=== PATIENT | female | born 1950 | race American Indian/Alaskan Native ===

== ENCOUNTER 2017-04-30 20:27 | Emergency (ER) | payer MEDICARE ==
[2017-04-30] MEDS ORDERED: ASPIRIN PO ONE (20:58)
[2017-04-30 21:16] LABS: Basophils % (Auto) 0.1 % (0.0-1.8); Hematocrit 32.7 % (30.3-42.9); Hemoglobin 10.6 gm/dl (10.1-14.3); Lymphocytes # (Auto) 1.3 K/mm3 (1.2-5.4); Lymphocytes % (Auto) 10.6 % (13.4-35.0); Mean Corpuscular HGB Conc 32 % (30-34); Mean Corpuscular Volume 77 fl (79-97); Monocytes # (Auto) 0.3 K/mm3 (0.0-0.8); Monocytes % (Auto) 2.8 % (0.0-7.3); Platelet Count 391 K/mm3 (140-440); Red Blood Count 4.24 M/mm3 (3.65-5.03); Red Cell Distribution Width 15.7 % (13.2-15.2)
[2017-04-30 21:20] LABS: Mean Corpuscular Hemoglobin 25 pg (28-32)
[2017-04-30 21:38] LABS: BUN/Creatinine Ratio 17; Blood Urea Nitrogen 12 mg/dL (7-17); Calcium 9.5 mg/dL (8.4-10.2); Hemolysis Index 36
[2017-04-30] MEDS ORDERED: ZOFRAN IV ONE (21:57)
[2017-04-30] MEDS ORDERED: MORPHINE IV ONE (21:57)
[2017-04-30] MEDS ORDERED: NACL 0.9% 1000 ML 1,000 ML IV ONE (21:57)
--- NOTE | 2017-04-30 22:01 | Emergency Department Report ---
ED Abdominal Pain HPI - General Chief Complaint: Chest Pain Stated Complaint: CHEST,ABDOMINAL PAIN,VOMITINGSOB Time Seen by Provider: 04/30/17 21:40 Source: patient Mode of arrival: Ambulatory Limitations: No Limitations - History of Present Illness Initial Comments: Patient is 58 years old female with history of hypertension. Patient presented to the ER with lower abdominal pain noted to the left lower quadrant and suprapubic area started last night associated with chills and nausea but no vomiting. Patient stated that she did not have any bowel movement for the last 2-3 days. She also describes increased frequency in urination. Patient denied any fever. MD Complaint: abdominal pain Location: LLQ, suprapubic Migration to: no migration Severity scale (0 -10): 7 Consistency: constant Associated Symptoms: nausea, chills - Related Data Allergies Allergy/AdvReac Type Severity Reaction Status Date / Time lisinopril Allergy Swelling Verified 04/30/17 20:50 ED Review of Systems ROS: Stated complaint: CHEST,ABDOMINAL PAIN,VOMITINGSOB Other details as noted in HPI Comment: All other systems reviewed and negative Constitutional: chills. denies: fever Respiratory: denies: cough, orthopnea, shortness of breath, SOB with exertion Cardiovascular: chest pain Gastrointestinal: abdominal pain, nausea. denies: vomiting, diarrhea, constipation Genitourinary: frequency. denies: urgency Neurological: denies: headache, weakness, numbness ED Past Medical Hx - Past Medical History Previous Medical History?: Yes Hx Hypertension: Yes ED Physical Exam - General Limitations: No Limitations General appearance: alert, in no apparent distress - Head Head exam: Present: atraumatic, normocephalic, normal inspection - Eye Eye exam: Present: normal appearance - ENT ENT exam: Present: normal exam, normal orophraynx, mucous membranes moist - Neck Neck exam: Present: normal inspection, full ROM. Absent: tenderness, meningismus, lymphadenopathy - Respiratory Respiratory exam: Present: normal lung sounds bilaterally. Absent: respiratory distress, wheezes, rales, rhonchi, chest wall tenderness, accessory muscle use, decreased breath sounds, prolonged expiratory - Cardiovascular Cardiovascular Exam: Present: regular rate, normal rhythm, normal heart sounds - GI/Abdominal GI/Abdominal exam: Present: soft, tenderness, normal bowel sounds. Absent: distended, guarding, rebound, rigid, organomegaly, mass, bruit, pulsatile mass, hernia - Extremities Exam Extremities exam: Present: normal inspection, full ROM, normal capillary refill - Back Exam Back exam: Present: normal inspection, full ROM. Absent: tenderness, CVA tenderness (R), CVA tenderness (L) - Neurological Exam Neurological exam: Present: alert, oriented X3, CN II-XII intact, normal gait - Skin Skin exam: Present: warm, intact, normal color. Absent: cyanosis, diaphoretic, erythema ED Course Vital Signs 04/30/17 04/30/17 04/30/17 20:50 22:42 22:59 Temperature 97.8 F 98.2 F Pulse Rate 112 H 83 Respiratory 18 18 20 Rate Blood Pressure 183/90 Blood Pressure 166/86 [Left] O2 Sat by Pulse 98 95 Oximetry 04/30/17 23:00 Temperature Pulse Rate Respiratory 20 Rate Blood Pressure Blood Pressure [Left] O2 Sat by Pulse 95 Oximetry - Reevaluation(s) Reevaluation #1: 04/30/17 23:59 Patient stated that she is feeling much better. Her abdominal pain is completely resolved. No more nausea or vomiting. I informed the patient about her CT abdomen and pelvis results and the need to follow-up with her primary care physician for further management. Patient understood and she stated that she is following with her automatic steel tie adjuster this morning and she will follow-up as a primary care physician in the next 2-3 days. ED Medical Decision Making - Lab Data Result diagrams: 04/30/17 21:06 04/30/17 21:06 - Radiology Data Radiology results: report reviewed Referring Physician: KELSEY MERA Patient Name: ALEJANDRA DAVIS Date of : 1950 Sex: Female Report Date: 2017-04-30 Report Status: Finalized Findings [facility] [address] [place] [address] Cat Scan Report Signed Patient: ALEJANDRA DAVIS MR#: [id number] : 1950 Acct:[id number] Age/Sex: 66 / F ADM Date: 04/30/17 Loc: ED Attending Dr: Ordering Physician: KELSEY MERA Date of Service: 04/30/17 Procedure(s): CT abdomen pelvis w con Accession Number(s): [id number] cc: KELSEY CliffDevorah MERA FINAL REPORT EXAM: CT ABDOMEN PELVIS W CON HISTORY: abdominal pain TECHNIQUE: CT abdomen and pelvis with intravenous contrast PRIORS: None. FINDINGS: No acute abnormality identified in the lung bases. No focal abnormality identified within the liver parenchyma. The spleen demonstrates normal size and attenuation. No pancreatic abnormalities seen. The kidneys demonstrate symmetric contrast enhancement. There is mild right hydronephrosis with dilatation of the proximal ureter obstructing calculus not identified. Multiple bilateral renal cysts are noted. There is stranding confluent increased density adjacent to the aorta which appears masslike. There are some prominent periaortic lymph nodes measuring up to 1.0 centimeter. The area of increased density extends from the infrarenal abdominal aorta through the bifurcation and into the left retroperitoneum at the junction of the internal and external iliac arteries. The aorta is normal in caliber. The adrenal glands are unremarkable Abdominal aorta is normal in caliber. No pathologically enlarged lymph nodes are identified. Small amount of ascites noted in the lower pelvis The uterus is enlarged and bulky with multiple calcifications present and a large anterior calcified uterine fibroid No evidence of small bowel dilatation. Colon is nondistended. No pericolonic inflammatory change. Urinary bladder is unremarkable. IMPRESSION: Increased periaortic retroperitoneal soft tissue density Mild right hydronephrosis with dilatation of the proximal ureter. differential considerations are primarily retroperitoneal fibrosis versus lymphoma. Bilateral renal cysts noted. Enlarged uterus with calcified fibroids Small amount of ascites seen in the lower pelvis Transcribed By: NICK Dictated By: WILY DIXON MD Electronically Authenticated By: WILY DIXON MD Signed Date/Time: 04/30/172328 DD/ 28 TD/TT: 04/30/172328 Critical care attestation.: If time is entered above; I have spent that time in minutes in the direct care of this critically ill patient, excluding procedure time. ED Disposition Clinical Impression: Abdominal pain, Retroperitoneal mass, Fibroid Disposition: - TO HOME OR SELFCARE Is pt being admited?: No Condition: Stable Instructions: Abdominal Pain (ED), Uterine Fibroids (ED) Referrals: GINO PATINO MD [Primary Care Provider] - 3-5 Days
[2017-04-30 23:19] LABS: Bilirubin,Urine NEG (Negative); Blood,Urine NEG (Negative); Color,Urine Yellow (Yellow); Mucus,Urine FEW /HPF; Urobilinogen,Urine < 2.0 mg/dL (<2.0); WBC,Urine < 1.0 /HPF (0.0-6.0)
--- NOTE | 2017-04-30 23:33 | Cat Scan Report ---
FINAL REPORT EXAM: CT ABDOMEN PELVIS W CON HISTORY: abdominal pain TECHNIQUE: CT abdomen and pelvis with intravenous contrast PRIORS: None. FINDINGS: No acute abnormality identified in the lung bases. No focal abnormality identified within the liver parenchyma. The spleen demonstrates normal size and attenuation. No pancreatic abnormalities seen. The kidneys demonstrate symmetric contrast enhancement. There is mild right hydronephrosis with dilatation of the proximal ureter obstructing calculus not identified. Multiple bilateral renal cysts are noted. There is stranding confluent increased density adjacent to the aorta which appears masslike. There are some prominent periaortic lymph nodes measuring up to 1.0 centimeter. The area of increased density extends from the infrarenal abdominal aorta through the bifurcation and into the left retroperitoneum at the junction of the internal and external iliac arteries. The aorta is normal in caliber. The adrenal glands are unremarkable Abdominal aorta is normal in caliber. No pathologically enlarged lymph nodes are identified. Small amount of ascites noted in the lower pelvis The uterus is enlarged and bulky with multiple calcifications present and a large anterior calcified uterine fibroid No evidence of small bowel dilatation. Colon is nondistended. No pericolonic inflammatory change. Urinary bladder is unremarkable. IMPRESSION: Increased periaortic retroperitoneal soft tissue density Mild right hydronephrosis with dilatation of the proximal ureter. differential considerations are primarily retroperitoneal fibrosis versus lymphoma. Bilateral renal cysts noted. Enlarged uterus with calcified fibroids Small amount of ascites seen in the lower pelvis
[2017-05-01 00:08] VITALS: BP 144/82
--- NOTE | 2017-05-01 01:06 | XRay Report ---
FINAL REPORT EXAM: XR CHEST 1V AP HISTORY: chest pain COMPARISON: None available. FINDINGS: Frontal view(s) of the chest obtained. Cardiac silhouette upper limits of normal. Mild elevation right hemidiaphragm. No gross consolidation or effusion. No pneumothorax. IMPRESSION: No grossly acute findings.
== END 2017-05-01 00:17 | disposition home or self-care (01) ==
LOC: ED 20:27
DX: K66.8 Other specified disorders of peritoneum (principal); D21.9 Benign neoplasm of connective and other soft tissue, unspecified; I10 Essential (primary) hypertension
CPT/HCPCS: 36415; 71045; 74177; 80048; 81001; 83690; 84484; 85025; 93005; 93010; 96361; 96374; 96375; 99285; J2270; J2405; J7030; Q9967

== ENCOUNTER 2017-06-08 09:24 | Day surgery (SDC) | payer MEDICARE ==
[2017-06-07 11:11] LABS: BUN/Creatinine Ratio 19; Blood Urea Nitrogen 13 mg/dL (7-17); Calcium 9.6 mg/dL (8.4-10.2); Hemolysis Index 1
[2017-06-07 11:35] LABS: Basophils % (Auto) 0.2 % (0.0-1.8); Eosinophils # (Auto) 0.1 K/mm3 (0.0-0.4); Eosinophils % (Auto) 0.6 % (0.0-4.3); Hematocrit 28.3 % (30.3-42.9); Hemoglobin 8.8 gm/dl (10.1-14.3); Lymphocytes # (Auto) 2.4 K/mm3 (1.2-5.4); Lymphocytes % (Auto) 30.2 % (13.4-35.0); Mean Corpuscular HGB Conc 31 % (30-34); Mean Corpuscular Hemoglobin 24 pg (28-32); Mean Corpuscular Volume 76 fl (79-97); Monocytes # (Auto) 0.7 K/mm3 (0.0-0.8); Monocytes % (Auto) 8.5 % (0.0-7.3); Platelet Count 420 K/mm3 (140-440); Red Blood Count 3.71 M/mm3 (3.65-5.03); Red Cell Distribution Width 16.7 % (13.2-15.2)
--- NOTE | 2017-06-07 17:31 | Anesthesia Consultation ---
Anesthesia Consult and Med Hx Date of service: 06/08/17 - Airway Anesthetic Teeth Evaluation: Good ROM Head & Neck: Adequate Mental/Hyoid Distance: Adequate Mallampati Class: Class II Intubation Access Assessment: Good - Pulmonary Exam CTA: Yes - Cardiac Exam Cardiac Exam: RRR - Pre-Operative Health Status ASA Pre-Surgery Classification: ASA3 Proposed Anesthetic Plan: General - Pre-Anesthesia Comment Pre-Anesthesia Comments: 66y F with h/o HTN who presents for hysteroscopy/D&C - Pulmonary Hx Smoking: No Hx Asthma: No COPD: No Hx Sleep Apnea: No - Cardiovascular System Hx Hypertension: Yes Hx Coronary Artery Disease: No Hx Angina: No Hx Heart Murmur: Yes (A doctor said he heard one once) - Central Nervous System Hx Seizures: No CVA: No Hx Psychiatric Problems: Yes - Endocrine Hx Renal Disease: No Hx Cirrhosis: No Hx Insulin Dependent Diabetes: No Hx Non-Insulin Dependent Diabetes: No Hx Thyroid Disease: No - Hematic Hx Anemia: Yes - Other Systems Hx Cancer: No
[~2017-06-08 09:24] MED LIST: LACTATED RINGERS 1,000 ML IV SCH; PEPCID PO NR
[2017-06-08] MEDS ORDERED: VERSED IV NR (11:00)
--- NOTE | 2017-06-08 12:00 | Anesthesia Day of Surgery ---
Anesthesia Day of Surgery - Day of Surgery Patient Examined: Yes Patient H&P Reviewed: Yes Patient is NPO: Yes
[2017-06-08] MEDS ORDERED: XYLOCAINE MPF 2% ONE (13:06)
[2017-06-08] MEDS ORDERED: DIPRIVAN 10 MG/ML IV ONE (13:06)
[2017-06-08] MEDS ORDERED: SUBLIMAZE ONE (13:08)
[2017-06-08] MEDS ORDERED: ZOFRAN ONE (13:48)
--- NOTE | 2017-06-08 13:55 | Discharge Summary ---
Providers - Providers Date of discharge: 06/08/17 Attending physician: ENE DE GUZMAN MD Primary care physician: JANETTE BURGESS Hospitalization Reason for admission: other (Postmenopausal bleeding, BHAVESH) Procedure: other (Hysterescopy, D&C) Condition at discharge: Stable Disposition: DC-01 TO HOME OR SELFCARE Plan - Provider Discharge Summary Additional instructions: [] Smoking cessation referral if applicable(refer to patient education folder for contact #) [] Refer to [facility]'s [facility] Booklet Call your doctor immediately for: * Fever > 100.5 * Heavy vaginal bleeding ( >1 pad per hour) * Severe persistent headache * Shortness of breath * Reddened, hot, painful area to leg or breast * Drainage or odor from incision. * Keep incision clean and dry at all times and follow doctor's instructions regarding bathing/showering - Follow up plan Follow up: JANETTE BURGESS JR, MD [Primary Care Provider] - 7 Days
[2017-06-08] MEDS ORDERED: NACL 0.9% IR ONE (14:00)
[2017-06-08] MEDS ORDERED: DILAUDID IV PRN (14:21)
[2017-06-08] MEDS ORDERED: ZOFRAN IV PRN (14:21)
--- NOTE | 2017-06-08 14:21 | Post Anesthesia Evaluation ---
- Post Anesthesia Evaluation Patient Participated: Yes Airway Patent: Yes Stable Respiratory Function: Yes Nausea/Vomiting: No Temp > 96.8F: Yes Pain Manageable: Yes Adequeate Hydration: Yes Anesthesia Complications: No
--- NOTE | 2017-06-08 14:31 | Operative Report ---
Operative Report Operative Report: Preoperative diagnosis: 1. Menopausal bleeding. 2. BHAVESH on Pap smear. Postoperative diagnosis: same as preoperative diagnosis. Procedure: 1. Hysteroscopy. 2. D&C Surgeon: Dr. Sanchez Dyed Raw Stock Blower Feeder: none Anesthesia: General IVF: 1 liter RL EBL: Minimal Complications: none Procedure details: Risks, benefits, and alternatives of the procedure were discussed in detail with the patient which included but not limited to the risk of infection, hemorrhage requiring blood transfusion, and uterine perforation. The patient expressed understanding, her questions were answered, and she gave informed consent. The patient was taken to the operating room with an IV fluid infusing ringers lactate. In the operating room, she was placed in the dorsal supine position. She was given general anesthesia. Then, she was placed in a dorsal lithotomy position. The perineum, vagina, and cervix were washed and she was prepared and draped in usual sterile fashion. Examination under anesthesia revealed normal external genitalia and vagina. The cervix was closed, long, and posterior with no gross lesions or no bleeding. The uterus was 7 weeks size, anteverted, and mobile. The adnexa were nonpalpable. A weighted speculum was placed on the posterior vaginal wall. The anterior lip of the cervix was grasped with a single-tooth tenaculum. Endocervical curettage was done. The cervical os was dilated and a hysteroscope was introduced into the uterine cavity. It revealed a mildly thickened endometrial lining with areas of atrophy. The ostia were visualized. The hysteroscope was removed from the uterine cavity. A gentle curettage was performed until a gritty texture was noticed. The specimen which consisted of ECC and EMC was sent to pathology. The instruments were removed from the uterus, cervix, and vagina. The counts of laps, needles, sponges, and instruments were correct 2. The patient tolerated the procedure well. She was awakened from the anesthesia. She was taken to the recovery room in a stable condition.
[2017-06-08 16:24] VITALS: BP 141/69
== END 2017-06-08 16:13 | disposition home or self-care (01) ==
LOC: OR 09:24
PROVIDERS: ATTEND Obstetrics & Gynecology
DX: C53.0 Malignant neoplasm of endocervix (principal); C54.1 Malignant neoplasm of endometrium; I10 Essential (primary) hypertension; Z79.899 Other long term (current) drug therapy
CPT/HCPCS: 36415; 58558; 80048; 82962; 85025; 88305; A4217; J2250; J2405; J2704; J3010; J7120

== ENCOUNTER 2018-03-27 09:11 | Outpatient (CLI) | payer MEDICARE ==
--- NOTE | 2018-03-27 14:04 | Cat Scan Report ---
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 COMPARISON: 01/03/18. TECHNIQUE: Helical CT in 1.25mm intervals without IV contrast. Sagittal and coronal reformatted images. FINDINGS: Thyroid gland: Normal. Tracheobronchial tree: Normal. Esophagus: Normal. Heart: Normal. Pericardium: Normal. Mediastinum: Normal. Lung Pickett: Mild segmental atelectasis has developed in the lingula and both lower lobes. No evidence for pneumonia, nodule or mass. Pleural Spaces: Normal. Musculoskeletal: No suspicious bony lesion or fracture. IMPRESSION: No evidence for metastatic disease to the chest. Minor linear atelectasis has developed in the lower lung zones.
--- NOTE | 2018-03-27 14:12 | Cat Scan Report ---
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 COMPARISON: CT abdomen and pelvis with contrast dated 01/03/18. TECHNIQUE: Helical CT in 1.25mm intervals without IV contrast. Sagittal and coronal reconstructions. IV contrast could not be administered secondary to a creatinine level of 2.5. FINDINGS: Moderate ascites has developed since the previous examination. There is evidence for omental caking in the left upper quadrant concerning for metastatic disease. Subtle peritoneal nodules are suspected particularly in the right paracolic gutter also concerning for metastatic disease. Multiple mildly enlarged lymph nodes have developed in the retroperitoneum and base of the mesentery. Lymph nodes measure up to 1.7 cm in long axis. Bilateral borderline inguinal lymph nodes are stable. The liver, biliary system, pancreas, spleen and adrenal glands are unremarkable. Several bilateral renal cysts are again noted. No evidence for nephrolithiasis or obstructive uropathy. The ureters and bladder are unremarkable. The bladder is empty. Hysterectomy changes are suspected. No adnexal abnormality is appreciated. Again, there is suggestion of a polypoid lesion in distal small bowel loops in the pelvis measuring 1.4 cm. The remaining bowel loops are unremarkable. Supraumbilical ventral wall defect is again noted with a 4.2 cm neck. A small amount of ascites and a short segment of transverse colon are within the hernia. No obstruction. The bony structures are intact. No suspicious bony lesion is appreciated. Moderate lumbar spondylosis is stable. IMPRESSION: Progression of disease is demonstrated in the abdomen. Moderate ascites has developed. There is evidence for omental caking in the left upper quadrant and scattered peritoneal nodules consistent with metastatic disease which appears to be new. There are also multiple mildly enlarged new lymph nodes in the retroperitoneum and at the base of the mesentery. Questionable polypoid lesion in distal small bowel loops, stable. Supraumbilical ventral wall hernia as outlined above. Scattered bilateral renal cysts, stable. Hysterectomy.
== END 2018-03-27 09:12 | disposition home or self-care (01) ==
LOC: CT 09:11
PROVIDERS: ATTEND Obstetrics & Gynecology Gynecologic Oncology
DX: K43.9 Ventral hernia without obstruction or gangrene (principal); J98.11 Atelectasis; R18.8 Other ascites; N28.1 Cyst of kidney, acquired; E78.00 Pure hypercholesterolemia, unspecified; I10 Essential (primary) hypertension; Z90.710 Acquired absence of both cervix and uterus
CPT/HCPCS: 36415; 71250; 74176; 82565; 84520

== ENCOUNTER 2018-04-12 08:53 | Day surgery (SDC) | payer MEDICARE | END 2018-04-12 08:54 | disposition home or self-care (01) | LOC: CATHLABREC 08:53 ==

== ENCOUNTER 2018-04-16 10:40 | Day surgery (SDC) | payer MEDICARE ==
[2018-04-16 11:45] LABS: INR 1.13 (0.87-1.13)
[2018-04-16 11:46] LABS: Partial Thromboplastin Time 25.3 Sec. (24.2-36.6)
[2018-04-16] MEDS ORDERED: XYLOCAINE 1% 20 mL ONE (12:12)
--- NOTE | 2018-04-16 13:23 | Short Stay Summary ---
Short Stay Documentation Date of service: 04/16/18 - History Principal diagnosis: ovarian cancer, ascites Past Medical History: cancer Past Surgical History: hysterectomy - Allergies and Medications Current Medications: Allergies lisinopril Allergy (Verified 06/06/17 14:50) Swelling Home Medications Medication Instructions Recorded Confirmed Last Taken Type Cod Liver Oil 1 each PO DAILY 06/07/17 04/16/18 04/15/18 History 1 Ergocalciferol(Vitamin D2)(Nf) 400 unit PO DAILY 06/07/17 04/16/18 04/15/18 History [Vitamin D (Nf)] 400units One Daily Multivitamin Tablet 1 tab PO DAILY 06/07/17 04/16/18 04/15/18 History 1 amLODIPine [Norvasc] 10 mg PO DAILY 06/07/17 04/16/18 04/15/18 History 10mg hydroCHLOROthiazide [HCTZ] 12.5 mg PO DAILY 06/07/17 04/16/18 04/15/18 History 12.5mg Apixaban [Eliquis] 5 mg PO DAILY 04/16/18 04/16/18 04/12/18 History 5mg - Physical exam General appearance: no acute distress Gastrointestinal: distended - Brief post op/procedure progress note Date of procedure: 04/16/18 Pre-op diagnosis: ascites Post-op diagnosis: same Procedure: US paracentesis Anesthesia: local Findings: large ascites Surgeon: ECTOR CASPER Estimated blood loss: none Pathology: list (60cc saved in case labs ordered) Specimen disposition: to lab Condition: stable - Disposition Condition at discharge: Good Disposition: DC-01 TO HOME OR SELFCARE Short Stay Discharge Plan Follow up with: JANETTE BURGESS JR, MD [Primary Care Provider] - 7 Days
[2018-04-16] MEDS ORDERED: ALBURX 25% (ALBUMIN) IV PRN (13:24)
--- NOTE | 2018-04-16 13:25 | Ultrasound Report ---
ULTRASOUND PARACENTESIS HISTORY: Ascites. DESCRIPTION OF PROCEDURE: A time out was performed. Informed consent was obtained. Sterile technique was utilized. Using ultrasound guidance, a 5 Greek centesis needle was advanced into the peritoneal space. There was spontaneous return of clear yellow fluid. 4.2 L of fluid was drained. 60 cc of fluid was saved for laboratory for analysis. No complications. IMPRESSION: Successful ultrasound-guided paracentesis.
[2018-04-16 14:08] VITALS: BP 126/74
== END 2018-04-16 14:12 | disposition home or self-care (01) ==
LOC: CATHLABREC 10:40 → EDSTATUS 12:00 → CATHLABREC 14:12
PROVIDERS: ATTEND Obstetrics & Gynecology Gynecologic Oncology
DX: R18.0 Malignant ascites (principal); E78.00 Pure hypercholesterolemia, unspecified; I10 Essential (primary) hypertension; F41.9 Anxiety disorder, unspecified; Z79.01 Long term (current) use of anticoagulants; Z79.899 Other long term (current) drug therapy; Z85.89 Personal history of malignant neoplasm of other organs and systems; Z90.710 Acquired absence of both cervix and uterus; Z98.891 History of uterine scar from previous surgery; Z98.890 Other specified postprocedural states; Z86.2 Personal history of diseases of the blood and blood-forming organs and certain disorders involving the immune mechanism; Z88.8 Allergy status to other drugs, medicaments and biological substances; Z85.43 Personal history of malignant neoplasm of ovary
CPT/HCPCS: 36415; 49083; 85610; 85730; 87102; 88112; 88305

== ENCOUNTER 2018-04-27 20:23 | Inpatient (IN) | payer MEDICARE ==
[2018-04-27 22:02] LABS: Hematocrit 29.4 % (30.3-42.9); Hemoglobin 9.7 gm/dl (10.1-14.3); Mean Corpuscular HGB Conc 33 % (30-34); Mean Corpuscular Volume 84 fl (79-97); Platelet Count 397 K/mm3 (140-440); Red Blood Count 3.51 M/mm3 (3.65-5.03); Red Cell Distribution Width 18.1 % (13.2-15.2)
[2018-04-27 22:29] LABS: Calcium 9.1 mg/dL (8.4-10.2)
[2018-04-28] MEDS ORDERED: SUBLIMAZE IV ONE (03:58)
[2018-04-28] MEDS ORDERED: ZOFRAN IV ONE (03:58)
[2018-04-28] MEDS ORDERED: NACL 0.9% 500 ML 500 ML IV ONE (03:58)
--- NOTE | 2018-04-28 04:01 | Event Note ---
Date: 04/28/18 Oncology: Dr. Gill, Dr. 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 We will check noncontrast CT scan of the abdomen and pelvis, x-ray of the chest, urinalysis, EKG, and treat her symptoms. Patient will likely require admission to the hospital for IV fluids, and supportive care. Vital Signs 04/27/18 21:15 Temperature 97.9 F Pulse Rate 121 H Respiratory 16 Rate Blood Pressure 101/56 O2 Sat by Pulse 98 Oximetry Lab Results 04/27/18 04/27/18 Range/Units 21:46 21:46 WBC 8.8 (4.5-11.0) K/mm3 RBC 3.51 L (3.65-5.03) M/mm3 Hgb 9.7 L (10.1-14.3) gm/dl Hct 29.4 L (30.3-42.9) % MCV 84 (79-97) fl MCH 28 (28-32) pg MCHC 33 (30-34) % RDW 18.1 H (13.2-15.2) % Plt Count 397 (140-440) K/mm3 Sodium 135 L (137-145) mmol/L Potassium 4.4 (3.6-5.0) mmol/L Chloride 90.5 L (98-107) mmol/L Carbon Dioxide 23 (22-30) mmol/L Anion Gap 26 mmol/L BUN 98 H (7-17) mg/dL Creatinine 4.3 H (0.7-1.2) mg/dL Estimated GFR 12 ml/min BUN/Creatinine Ratio 23 % Glucose 163 H (65-100) mg/dL Calcium 9.1 (8.4-10.2) mg/dL Total Bilirubin 0.30 (0.1-1.2) mg/dL AST 22 (5-40) units/L ALT 11 (7-56) units/L Alkaline Phosphatase 92 (35-129) units/L Total Protein 6.8 (6.3-8.2) g/dL Albumin 3.0 L (3.9-5) g/dL Albumin/Globulin Ratio 0.8 %
[2018-04-28 04:44] LABS: INR 1.23 (0.87-1.13)
--- NOTE | 2018-04-28 05:11 | XRay Report ---
PROCEDURE: XR CHEST 1V AP PROCEDURE: XR CHEST 1V AP TECHNIQUE: Chest radiograph single view. HISTORY: n/v/ weakness COMPARISONS: None . FINDINGS: Heart: Normal. Mediastinum/Vessels: Normal. Lungs/Pleural space: There is suboptimal inspiration. There is opacity at the left lung base suggest ing infiltrate. Nodule considered less likely but not excluded. There is a small left pleural effusio n. There is no pneumothorax.. Bony thorax: No acute osseous abnormality. Life support devices: There is a right internal jugular vein Port-A-Cath. The tip is in the superior vena cava.. IMPRESSION: The heart size is normal.. There is suboptimal inspiration. There is opacity at the left lung base suggesting infiltrate. Nodule considered less likely but not excluded. There is a small left pleural effusion. There is no pneumot horax.. There is a right internal jugular vein Port-A-Cath. The tip is in the superior vena cava.. This document is electronically signed by Cr Mejia MD., April 28 2018 05:09:35 AM ET
--- NOTE | 2018-04-28 06:09 | Cat Scan Report ---
PROCEDURE: CT ABDOMEN PELVIS WO CON TECHNIQUE: Computerized axial tomography of the abdomen and pelvis was performed without intravenous contrast. This study is performed without intravascular contrast material and its sensitivity for ab dominal and pelvic pathology, including neoplasms, inflammation, abscess, free fluid, thrombosis, art erial dissection and infarction, is reduced compared with a contrast enhanced study. CT DOSE LENGTH PRODUCT: mGycm HISTORY: abd pain n/v , tulio COMPARISONS: 03/27/2018 . FINDINGS: Visualized lower thorax: There are loculated pleural effusions and pleural-based nodules.. Liver: Normal size and attenuation. Spleen: Normal size and attenuation. Gallbladder and biliary system: Normal. Pancreas: Normal. Adrenals: Normal. Kidneys: Normal. GI tract: The bowel is distorted suggesting adhesions. Portions of the bowel are also dilated. Parti al obstruction not excluded. There is no bowel wall thickening. . Lymph nodes and mesentery: There are enlarged mesenteric lymph nodes.. Vasculature: There is calcified plaque in the abdominal aorta. There is no aneurysm.. Bladder: The urinary bladder is thickened.. Reproductive organs: There has been a hysterectomy.. Peritoneum: There is a large amount of ascites. There is no free air.. Musculoskeletal structures: No significant abnormality. Other: This is an umbilical hernia containing portions of bowel and ascites.. IMPRESSION: The bowel is distorted suggesting adhesions. Portions of the bowel are also dilated. Partial obstruct ion not excluded. There is no bowel wall thickening. .. This similar to prior study. There are enlarged mesenteric lymph nodes.. The urinary bladder is thickened.. There has been a hysterectomy.. There is a large amount of ascites. There is no free air.. This is an umbilical hernia containing portions of bowel and ascites.. . This document is electronically signed by Cr Mejia MD., April 28 2018 06:06:40 AM ET
[2018-04-28] MEDS ORDERED: NACL 0.9% 1000 ML 1,000 ML IV ONE (06:12)
--- NOTE | 2018-04-28 06:16 | Emergency Department Report ---
ED Abdominal Pain HPI - General Chief Complaint: Abdominal Pain Stated Complaint: EXTREME ABDOMINAL PAIN STAGE 4 CANCER Time Seen by Provider: 04/28/18 06:04 Source: patient, family Mode of arrival: Ambulatory Limitations: Physical Limitation - History of Present Illness Initial Comments: Patient is 67 years old female with history of stage IV ovarian cancer status post chemotherapy and radiation. Patient presented to the emergency room complaining of diffuse abdominal pain, distention, nausea and vomiting for the last week. Patient denied any fever or chills. No chest pain or cough. Patient stated that she has an alternation of diarrhea and constipation for the last week but she passed gas this morning. MD Complaint: abdominal pain -: week(s) Location: diffuse Radiation: none Migration to: no migration Severity scale (0 -10): 7 Quality: cramping - Related Data Home Medications Medication Instructions Recorded Confirmed Last Taken Cod Liver Oil 1 each PO DAILY 06/07/17 04/16/18 04/15/18 1 Ergocalciferol(Vitamin D2)(Nf) 400 unit PO DAILY 06/07/17 04/16/18 04/15/18 [Vitamin D (Nf)] 400units One Daily Multivitamin Tablet 1 tab PO DAILY 06/07/17 04/16/18 04/15/18 1 amLODIPine [Norvasc] 10 mg PO DAILY 06/07/17 04/16/18 04/15/18 10mg hydroCHLOROthiazide [HCTZ] 12.5 mg PO DAILY 06/07/17 04/16/18 04/15/18 12.5mg Apixaban [Eliquis] 5 mg PO DAILY 04/16/18 04/16/18 04/12/18 5mg Allergies Allergy/AdvReac Type Severity Reaction Status Date / Time lisinopril Allergy Swelling Verified 04/27/18 21:37 ED Review of Systems ROS: Stated complaint: EXTREME ABDOMINAL PAIN STAGE 4 CANCER Other details as noted in HPI Comment: All other systems reviewed and negative Constitutional: denies: chills, fever Respiratory: shortness of breath. denies: cough, SOB with exertion, SOB at rest, wheezing Cardiovascular: palpitations. denies: chest pain Gastrointestinal: abdominal pain, nausea, vomiting, diarrhea, constipation. denies: hematemesis, melena, hematochezia Genitourinary: denies: urgency, dysuria, frequency, hematuria Neurological: weakness (generalized). denies: headache ED Past Medical Hx - Past Medical History Hx Hypertension: Yes Hx Renal Disease: No Hx Seizures: No Hx Asthma: No Hx COPD: No - Surgical History Hx Breast Surgery: Yes (Breast biopsy) - Social History Smoking Status: Never Smoker - Medications Home Medications: Home Medications Medication Instructions Recorded Confirmed Last Taken Type Cod Liver Oil 1 each PO DAILY 06/07/17 04/16/18 04/15/18 History 1 Ergocalciferol(Vitamin D2)(Nf) 400 unit PO DAILY 06/07/17 04/16/18 04/15/18 History [Vitamin D (Nf)] 400units One Daily Multivitamin Tablet 1 tab PO DAILY 06/07/17 04/16/18 04/15/18 History 1 amLODIPine [Norvasc] 10 mg PO DAILY 06/07/17 04/16/18 04/15/18 History 10mg hydroCHLOROthiazide [HCTZ] 12.5 mg PO DAILY 06/07/17 04/16/18 04/15/18 History 12.5mg Apixaban [Eliquis] 5 mg PO DAILY 04/16/18 04/16/18 04/12/18 History 5mg ED Physical Exam - General Limitations: Physical Limitation General appearance: alert, in no apparent distress - Head Head exam: Present: atraumatic, normocephalic, normal inspection - Eye Eye exam: Present: normal appearance, PERRL - ENT ENT exam: Present: normal exam, mucous membranes dry - Neck Neck exam: Present: normal inspection, full ROM. Absent: tenderness, meningismus, lymphadenopathy, thyromegaly - Respiratory Respiratory exam: Present: normal lung sounds bilaterally - Cardiovascular Cardiovascular Exam: Present: regular rate, normal rhythm, normal heart sounds - GI/Abdominal GI/Abdominal exam: Present: soft, distended, tenderness, diminished bowel sounds. Absent: guarding, rebound, rigid, organomegaly, mass, bruit, pulsatile mass - Extremities Exam Extremities exam: Present: normal inspection, full ROM, normal capillary refill. Absent: tenderness, pedal edema, joint swelling, calf tenderness - Back Exam Back exam: Present: normal inspection, full ROM. Absent: CVA tenderness (R), CVA tenderness (L), muscle spasm, paraspinal tenderness, vertebral tenderness, rash noted - Neurological Exam Neurological exam: Present: alert, oriented X3, CN II-XII intact, normal gait, reflexes normal - Skin Skin exam: Present: warm, intact ED Course Vital Signs 04/27/18 21:15 Temperature 97.9 F Pulse Rate 121 H Respiratory 16 Rate Blood Pressure 101/56 O2 Sat by Pulse 98 Oximetry - Consultations Consultation #1: 04/28/18 07:54 I discussed the patient with Dr. Almendarez, she has stated that she'll follow-up with the patient. ED Medical Decision Making - Lab Data Result diagrams: 04/27/18 21:46 04/27/18 21:46 - Radiology Data Radiology results: report reviewed Referring Physician: GINO ROLLINS Patient Name: ALEJANDRA ADVIS Date of : 1950 Sex: Female Report Date: 2018-04-28 Report Status: Finalized Findings [facility] [address] [place] [address] Cat Scan Report Signed Patient: ALEJANDRA DAVIS MR#: [id number] : 1950 Acct:[id number] Age/Sex: 67 / F ADM Date: 04/27/18 Loc: ED Attending Dr: Ordering Physician: GINO ROLLINS MD Date of Service: 04/28/18 Procedure(s): CT abdomen pelvis wo con Accession Number(s): [id number] cc: GINO ROLLINS MD PROCEDURE: CT ABDOMEN PELVIS WO CON TECHNIQUE: Computerized axial tomography of the abdomen and pelvis was performed without intravenous contrast. This study is performed without intravascular contrast material and its sensitivity for abdominal and pelvic pathology, including neoplasms, inflammation, abscess, free fluid, thrombosis, arterial dissection and infarction, is reduced compared with a contrast enhanced study. CT DOSE LENGTH PRODUCT: mGycm HISTORY: abd pain n/v , tulio COMPARISONS: 03/27/2018 . FINDINGS: Visualized lower thorax: There are loculated pleural effusions and pleural-based nodules.. Liver: Normal size and attenuation. Spleen: Normal size and attenuation. Gallbladder and biliary system: Normal. Pancreas: Normal. Adrenals: Normal. Kidneys: Normal. GI tract: The bowel is distorted suggesting adhesions. Portions of the bowel are also dilated. Partial obstruction not excluded. There is no bowel wall thickening. . Lymph nodes and mesentery: There are enlarged mesenteric lymph nodes.. Vasculature: There is calcified plaque in the abdominal aorta. There is no aneurysm.. Bladder: The urinary bladder is thickened.. Reproductive organs: There has been a hysterectomy.. Peritoneum: There is a large amount of ascites. There is no free air.. Musculoskeletal structures: No significant abnormality. Other: This is an umbilical hernia containing portions of bowel and ascites.. IMPRESSION: The bowel is distorted suggesting adhesions. Portions of the bowel are also dilated. Partial obstruction not excluded. There is no bowel wall thickening. .. This similar to prior study. There are enlarged mesenteric lymph nodes.. The urinary bladder is thickened.. There has been a hysterectomy.. There is a large amount of ascites. There is no free air.. This is an umbilical hernia containing portions of bowel and ascites.. . This document is electronically signed by Cr Mejia MD., April 28 2018 06:06:40 AM ET Transcribed By: CO Dictated By: CR MEJIA MD Electronically Authenticated By: CR MEJIA MD Signed Date/Time: 04/28/18608 DD/ 8 TD/TT: 04/28/18539 - Medical Decision Making Patient is 67 years old female with history of stage IV ovarian cancer status post chemotherapy and radiation. Patient presented to the emergency room complaining of diffuse abdominal pain, distention, nausea and vomiting for the last week. Patient denied any fever or chills. No chest pain or cough. Patient stated that she has an alternation of diarrhea and constipation for the last week but she passed gas this morning. Patient found to have acute renal failure, most likely due to dehydration from vomiting. Patient also found to have partial small bowel obstruction. I discussed the patient is Dr. Almendarez from surgery. I discussed the patient with Dr. Yao, he agreed to admit the patient to medical service. Critical Care Time: Yes Critical care time in (mins) excluding proc time.: 30 Critical care attestation.: If time is entered above; I have spent that time in minutes in the direct care of this critically ill patient, excluding procedure time. ED Disposition Clinical Impression: Abdominal pain, Acute renal failure, 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, Small bowel obstruction Disposition: OP ADMIT IP TO THIS HOSP Is pt being admited?: Yes Condition: Stable Instructions: Abdominal Pain (ED) Referrals: JANETTE BURGESS JR, MD [Primary Care Provider] - 3-5 Days
--- NOTE | 2018-04-28 10:32 | Consultation ---
History of Present Illness - History of Present Illness Thank you for the consultation ! Patient was evaluated today My assessment and plan are as follows; Acute kidney injury in a patient with baseline creatinine is around 0.7 in April 2017, 1.2 as of December 2017 patient's creatinine was 2.3 in March 2018 and currently at 4.3 No emergent indication for renal replacement therapy currently Will order labs, follow-up intake and output gentle hydration while we are working her up for renal failure Etiology of renal failure appears to be unclear at this time however possibilities include Malnutrition present upon admission patient's albumin is only 3.0 Hypermagnesemia 2.80 to be followed Anemia of unclear etiology current hemoglobin around 9.7 with normal platelet count CT scan of the abdomen pelvis obtained shows evidence of normal appearing kidneys large amount of sinusitis thickened urinary bladder Patient does have history of gynecological cancer, and is currently being followed by Dr. Kirkland as well as Dr. Gill for stage IV ovarian cancer status post chemotherapy and radiation Patient has been admitted here with increasing abdominal distention nausea and vomiting for last 1 week Patient was adequately counseled and educated regarding multiple renal related issues. Renal prognosis remains guarded to very poor at this time All renal related questions were answered and simple Tamazight pertinent lab studies as well as imaging results were also discussed with patient We will continue to follow and make recommendations from renal standpoint. Thank you for the consultation Author: Jignesh Garcia M.D. [facility], [address] [place] [address] Tel; [phone] Source of information: From patient very poor historian History of present illness Patient is a pleasant 67-year-old -[place] female who has known history of ovarian cancer for which she has been seen and followed by Dr. Gill, patient has been treated with chemotherapy as well as radiation and has been told to have recurrent ovarian cancer, he came to Hospital with complaints of increasing abdominal distention nausea vomiting extremely poor appetite she was also feeling weak upon admission and had noticed increasing abdominal distention. She was still making urine prior to arrival She does not know the nature of her chemotherapy Past medical history significant for ,Acute renal failure Recurrent ovarian cancer Hypertension Current allergies: Lisinopril Home medication, per the medication reviewed Social history, family history reviewed Review of systems: Positive for increasing abdominal distention, nausea or poor appetite not taking any nonsteroidal drug Recurrent ovarian cancer All other review of systems negative Physical examination Vitals: Reviewed General: No acute distress HEENT: Oral mucosa dry no pallor or icterus Neck: Supple without any JVD thyromegaly or nodular mass Chest: Clear to auscultation Heart: Regular rate and rhythm S1-S2 heard no S3-S4 Abdomen: Soft nontender, bowel sounds present no renal bruit no suprapubic masses no CVA tenderness noted dull flanks Extremity: Minimal edema dry skin no peripheral cyanosis Endocrine: Thyroid not enlarged Psychiatric: No agitation and aggression noted Musculoskeletal: No joint effusion noted Labs and x-rays: Reviewed from this admission Medications and Allergies Allergies Allergy/AdvReac Type Severity Reaction Status Date / Time lisinopril Allergy Swelling Verified 04/28/18 12:20 Home Medications Medication Instructions Recorded Confirmed Last Taken Type Cod Liver Oil 1 each PO DAILY 06/07/17 04/28/18 04/20/18 History Ergocalciferol(Vitamin D2)(Nf) 400 unit PO DAILY 06/07/17 04/28/18 04/26/18 10:00 History [Vitamin D (Nf)] One Daily Multivitamin Tablet 1 tab PO DAILY 06/07/17 04/28/18 04/26/18 21:00 History amLODIPine [Norvasc] 10 mg PO DAILY 06/07/17 04/28/18 04/26/18 21:00 History hydroCHLOROthiazide [HCTZ] 12.5 mg PO DAILY 06/07/17 04/28/18 04/26/18 10:00 History Apixaban [Eliquis] 5 mg PO DAILY 04/16/18 04/28/18 04/23/18 21:00 History Exam - Vital Signs Vital signs: Vital Signs Temp Pulse Resp BP Pulse Ox 97.9 F 121 H 16 101/56 98 04/27/18 21:15 04/27/18 21:15 04/27/18 21:15 04/27/18 21:15 04/27/18 21:15 Results - Lab Results 04/29/18 05:56 04/30/18 04:33 Most recent lab results Calcium 9.1 mg/dL (8.4-10.2) 04/27/18 21:46 Magnesium 2.80 mg/dL (1.7-2.3) H 04/28/18 04:16
--- NOTE | 2018-04-28 10:41 | History and Physical Report ---
History of Present Illness Date of examination: 04/28/18 Date of admission: 04/28/18 07:59 Chief complaint: N/V History of present illness: 67 yo F with hx of metastatic ovarian cancer s/p hysterectomy with chemo and radiation therapy, ascitis requiring periodic paracentesis presents with 5 days of persistent nausea, vomiting, abdominal tightness, weakness. She states that she is unable to keep anything down for last 5 days and symptom was progressively getting worse. She also felt her abdomen is very distended, had no able to pass any flatus. Initial work up in the ER suggesting possible bowel obstruction with adhesion per CT abdomen/pelvis, significant ascitis and TIARRA. She denies any abdominal pain. GS consulted in the ED. She is being admitted for further evaluation and management. Past History Past Medical History: cancer (metastatic ovarian ca), hypertension, other Past Surgical History: hysterectomy, Other (port a cath) Social history: no significant social history, Lives alone Family history: no significant family history Review of Systems Constitutional: no fever, no chills Ears, nose, mouth and throat: no ear pain, no ear discharge, no tinnitis, no nose pain Breasts: no change in shape, no swelling, no mass Cardiovascular: chest pain, orthopnea, shortness of breath, Respiratory: no cough, no hemoptysis Gastrointestinal: no abdominal pain, + nausea, + vomiting, + diarrhea Genitourinary Female: no dysuria, no urgency Rectal: no pain, no incontinence, no bleeding Musculoskeletal: no neck stiffness, no neck pain, no shooting arm pain, no arm numbness/tingling, no low back pain Integumentary: no rash, no pruritis, no redness, no sores, no wounds Neurological: no transient paralysis, no paralysis, no weakness, no numbness, no seizures Psychiatric: no anxiety, no memory loss, no change in sleep habits, no sleep disturbances, no insomnia, no hypersomnia, no change in appetite Endocrine: no cold intolerance, no heat intolerance, no polyphagia, no excessive thirst, no polydipsia, no polyuria Hematologic/Lymphatic: no easy bruising, no easy bleeding, no lymphadenopathy, no lymphedema Allergic/Immunologic: no urticaria, no allergic rhinitis, no persistent infections, no anaphylaxis Medications and Allergies Allergies Allergy/AdvReac Type Severity Reaction Status Date / Time lisinopril Allergy Swelling Verified 04/28/18 12:20 Home Medications Medication Instructions Recorded Confirmed Last Taken Type Cod Liver Oil 1 each PO DAILY 06/07/17 04/28/18 04/20/18 History Ergocalciferol(Vitamin D2)(Nf) 400 unit PO DAILY 06/07/17 04/28/18 04/26/18 10:00 History [Vitamin D (Nf)] One Daily Multivitamin Tablet 1 tab PO DAILY 06/07/17 04/28/18 04/26/18 21:00 History amLODIPine [Norvasc] 10 mg PO DAILY 06/07/17 04/28/18 04/26/18 21:00 History hydroCHLOROthiazide [HCTZ] 12.5 mg PO DAILY 06/07/17 04/28/18 04/26/18 10:00 History Apixaban [Eliquis] 5 mg PO DAILY 04/16/18 04/28/18 04/23/18 21:00 History Exam - Constitutional Vitals: Temp Pulse Resp BP Pulse Ox 97.9 F 121 H 16 101/56 98 04/27/18 21:15 04/27/18 21:15 04/27/18 21:15 04/27/18 21:15 04/27/18 21:15 General appearance: Present: no acute distress - EENT Eyes: Present: PERRL ENT: hearing intact, clear oral mucosa - Neck Neck: Present: supple, normal ROM - Respiratory Respiratory effort: normal Respiratory: bilateral: CTA - Cardiovascular Heart Sounds: Present: S1 & S2. Absent: rub, click - Extremities Extremities: pulses symmetrical, No edema Peripheral Pulses: within normal limits - Abdominal General gastrointestinal: Present: soft, non-tender, distended, other (hypoactive BS) - Integumentary Integumentary: Present: clear, warm, dry - Musculoskeletal Musculoskeletal: gait normal, strength equal bilaterally - Psychiatric Psychiatric: appropriate mood/affect, intact judgment & insight - Neurologic Neurologic: CNII-XII intact, moves all extremities Results - Labs CBC & Chem 7: 04/29/18 05:56 04/29/18 05:56 Labs: Abnormal lab results 04/27/18 04/27/18 04/28/18 Range/Units 21:46 21:46 04:16 RBC 3.51 L (3.65-5.03) M/mm3 Hgb 9.7 L (10.1-14.3) gm/dl Hct 29.4 L (30.3-42.9) % RDW 18.1 H (13.2-15.2) % PT 16.3 H (12.2-14.9) Sec. INR 1.23 H (0.87-1.13) Sodium 135 L (137-145) mmol/L Chloride 90.5 L (98-107) mmol/L BUN 98 H (7-17) mg/dL Creatinine 4.3 H (0.7-1.2) mg/dL Glucose 163 H (65-100) mg/dL Magnesium (1.7-2.3) mg/dL Albumin 3.0 L (3.9-5) g/dL 04/28/18 Range/Units 04:16 RBC (3.65-5.03) M/mm3 Hgb (10.1-14.3) gm/dl Hct (30.3-42.9) % RDW (13.2-15.2) % PT (12.2-14.9) Sec. INR (0.87-1.13) Sodium (137-145) mmol/L Chloride (98-107) mmol/L BUN (7-17) mg/dL Creatinine (0.7-1.2) mg/dL Glucose (65-100) mg/dL Magnesium 2.80 H (1.7-2.3) mg/dL Albumin (3.9-5) g/dL Assessment and Plan Possible Bowel obstruction, likley from adhesion and underlying malignancy Abdominal pain with n/v, likely from SBO TIARRA, due to volume depletion/vasomator nephropathy Stage 4 Ovarian cancer Ascitis due to malignancy - NPO for now, cont iv fluid, supportive care - GS/renal consulted in the ED, follow renal function - consult Oncology and order for paracenthesis Radiological data: Ct abdomen/pelvis: The bowel is distorted suggesting adhesions. Portions of the bowel are also dilated. Partial obstruction not excluded. There is no bowel wall thickening. .. This similar to prior study. There are enlarged mesenteric lymph nodes.. The urinary bladder is thickened.. There has been a hysterectomy.. There is a large amount of ascites. There is no free air.. This is an umbilical hernia containing portions of bowel and ascites.. .
--- NOTE | 2018-04-28 11:40 | Consultation ---
History of Present Illness Consult date: 04/28/18 Chief complaint: abd pain, n/v, weakness - History of present illness History of present illness: 67 yo F with hx of metastatic ovarian cancer presents with 5 days of persistent nausea, vomiting, abdominal tightness, weakness. The patient states that 5 days ago she started off being constipated and was prescribed a stool softener by her PCP. She then started having loose BMs. She also at the same time developed nausea and vomiting (nonbloody/nonbilious). She has been unable to keep anything down. She has had surgery and chemotherapy for her cancer. Chemotherapy finished in January and she was referred to a obstetrics/gynecology nurse onc specialist at [facility]. Dr. Gill is her obstetrics/gynecology nurse surgeon who performed her hysterectomy and oophorectomy. She states her abdomen feels tight and she knows she has fluid inside. She had a paracentesis at [facility] 3 weeks ago after which she states she felt much better. No f/c, cp, sob. Her n/v has improved. She is having some flatus. Past History Past Medical History: cancer (metastatic ovarian ca), hypertension, other Past Surgical History: hysterectomy, Other (port a cath) Social history: no significant social history, Lives alone Family history: no significant family history Medications and Allergies Allergies Allergy/AdvReac Type Severity Reaction Status Date / Time lisinopril Allergy Swelling Verified 04/27/18 21:37 Home Medications Medication Instructions Recorded Confirmed Last Taken Type Cod Liver Oil 1 each PO DAILY 06/07/17 04/16/18 04/15/18 History 1 Ergocalciferol(Vitamin D2)(Nf) 400 unit PO DAILY 06/07/17 04/16/18 04/15/18 History [Vitamin D (Nf)] 400units One Daily Multivitamin Tablet 1 tab PO DAILY 06/07/17 04/16/18 04/15/18 History 1 amLODIPine [Norvasc] 10 mg PO DAILY 06/07/17 04/16/18 04/15/18 History 10mg hydroCHLOROthiazide [HCTZ] 12.5 mg PO DAILY 06/07/17 04/16/18 04/15/18 History 12.5mg Apixaban [Eliquis] 5 mg PO DAILY 04/16/18 04/16/18 04/12/18 History 5mg Review of Systems All systems: negative (10 pt ROS performed and negative except for that listed in HPI) Exam Vital Signs Temp Pulse Resp BP Pulse Ox 97.9 F 121 H 16 101/56 98 04/27/18 21:15 04/27/18 21:15 04/27/18 21:15 04/27/18 21:15 04/27/18 21:15 Narrative exam: Gen: AAOx3. NAD ENT: no scleral icterus or conjunctival pallor. Mucous membranes are dry CV: s1, S2+, tachy Resp; even and unlabored Abd: soft, distended, NT. +ascites. + edema. incisional hernia which is soft and easily reducible, NT, no skin changes. Well healed midline surgical scar Ext: no c/c/e Results - Labs 04/27/18 21:46 04/27/18 21:46 Abnormal lab results 04/27/18 04/27/18 04/28/18 Range/Units 21:46 21:46 04:16 RBC 3.51 L (3.65-5.03) M/mm3 Hgb 9.7 L (10.1-14.3) gm/dl Hct 29.4 L (30.3-42.9) % RDW 18.1 H (13.2-15.2) % PT 16.3 H (12.2-14.9) Sec. INR 1.23 H (0.87-1.13) Sodium 135 L (137-145) mmol/L Chloride 90.5 L (98-107) mmol/L BUN 98 H (7-17) mg/dL Creatinine 4.3 H (0.7-1.2) mg/dL Glucose 163 H (65-100) mg/dL Magnesium (1.7-2.3) mg/dL Albumin 3.0 L (3.9-5) g/dL 04/28/18 Range/Units 04:16 RBC (3.65-5.03) M/mm3 Hgb (10.1-14.3) gm/dl Hct (30.3-42.9) % RDW (13.2-15.2) % PT (12.2-14.9) Sec. INR (0.87-1.13) Sodium (137-145) mmol/L Chloride (98-107) mmol/L BUN (7-17) mg/dL Creatinine (0.7-1.2) mg/dL Glucose (65-100) mg/dL Magnesium 2.80 H (1.7-2.3) mg/dL Albumin (3.9-5) g/dL Diabetes panel 04/27/18 Range/Units 21:46 Sodium 135 L (137-145) mmol/L Potassium 4.4 (3.6-5.0) mmol/L Chloride 90.5 L (98-107) mmol/L Carbon Dioxide 23 (22-30) mmol/L BUN 98 H (7-17) mg/dL Creatinine 4.3 H (0.7-1.2) mg/dL Glucose 163 H (65-100) mg/dL Calcium 9.1 (8.4-10.2) mg/dL AST 22 (5-40) units/L ALT 11 (7-56) units/L Alkaline Phosphatase 92 (35-129) units/L Total Protein 6.8 (6.3-8.2) g/dL Albumin 3.0 L (3.9-5) g/dL Calcium panel 04/27/18 Range/Units 21:46 Calcium 9.1 (8.4-10.2) mg/dL Albumin 3.0 L (3.9-5) g/dL Pituitary panel 04/27/18 Range/Units 21:46 Sodium 135 L (137-145) mmol/L Potassium 4.4 (3.6-5.0) mmol/L Chloride 90.5 L (98-107) mmol/L Carbon Dioxide 23 (22-30) mmol/L BUN 98 H (7-17) mg/dL Creatinine 4.3 H (0.7-1.2) mg/dL Glucose 163 H (65-100) mg/dL Calcium 9.1 (8.4-10.2) mg/dL Adrenal panel 04/27/18 Range/Units 21:46 Sodium 135 L (137-145) mmol/L Potassium 4.4 (3.6-5.0) mmol/L Chloride 90.5 L (98-107) mmol/L Carbon Dioxide 23 (22-30) mmol/L BUN 98 H (7-17) mg/dL Creatinine 4.3 H (0.7-1.2) mg/dL Glucose 163 H (65-100) mg/dL Calcium 9.1 (8.4-10.2) mg/dL Total Bilirubin 0.30 (0.1-1.2) mg/dL AST 22 (5-40) units/L ALT 11 (7-56) units/L Alkaline Phosphatase 92 (35-129) units/L Total Protein 6.8 (6.3-8.2) g/dL Albumin 3.0 L (3.9-5) g/dL - Imaging CT scan - abdomen: report reviewed, image reviewed CT scan - pelvis: report reviewed, image reviewed Assessment and Plan 67 yo F with 1. pSBO likely secondary to metastatic ovarian cancer and adhesions 2. metastatic ovarian cancer 3. ascites 4. TIARRA secondary to volume depletion Ct Scan A/P compared to Ct scan A/P from Mar 2018. Bowel loop appearance is similar. Ascites has reaccumulated. Radiology report notes concerns for omental caking and peritoneal studding. Plan: 1. trial of clear liquids. NGT if n/v 2. IVF 3. nephrology on board 4. BMP in am, replace lytes as needed 5. recommend paracentesis 6. recommend oncology consult 7. prn pain and nausea control 8. DVT ppx At this time, I do not feel there is an indication for general surgical intervention. Thank you, please call with questions.
[2018-04-28 11:44] LABS: Bacteria,Urine 1+ /HPF (Negative); Bilirubin,Urine NEG (Negative); Blood,Urine NEG (Negative); Color,Urine Yellow (Yellow); Urobilinogen,Urine < 2.0 mg/dL (<2.0)
[2018-04-28 11:54] LABS: Creatinine,Urine 156.1 mg/dL (0.1-20.0)
[2018-04-28] MEDS ORDERED: REGLAN IV PRN (12:22)
[2018-04-28] MEDS ORDERED: MORPHINE ONE (12:47)
[2018-04-28] MEDS ORDERED: ZOFRAN ONE (12:48)
[2018-04-28] MEDS: MORPHINE IV PRN (12:52)
[2018-04-28] MEDS: D5NS 1,000 ML IV SCH ×2 (15:01→22:47)
[2018-04-28] MEDS: PROTONIX IV SCH (15:06)
[2018-04-29 06:20] LABS: Basophils % (Auto) 0.3 % (0.0-1.8); Eosinophils % (Auto) 0.2 % (0.0-4.3); Hemoglobin 8.6 gm/dl (10.1-14.3); Lymphocytes # (Auto) 0.6 K/mm3 (1.2-5.4); Lymphocytes % (Auto) 6.6 % (13.4-35.0); Mean Corpuscular HGB Conc 33 % (30-34); Mean Corpuscular Volume 83 fl (79-97); Monocytes % (Auto) 12.4 % (0.0-7.3); Platelet Count 335 K/mm3 (140-440); Red Blood Count 3.13 M/mm3 (3.65-5.03); Red Cell Distribution Width 18.3 % (13.2-15.2)
[2018-04-29 06:45] LABS: Calcium 8.4 mg/dL (8.4-10.2)
[2018-04-29] MEDS: D5NS 1,000 ML IV SCH ×2 (07:31→15:36)
[2018-04-29] MEDS: PROTONIX IV SCH (10:15)
--- NOTE | 2018-04-29 10:51 | Progress Note ---
Subjective Interval history: Patient was seen today for follow-up on multiple renal related issues Events of this hospitalization noted Creatinine is stable Feels a little better Very poor historian Followed by Dr. Tarik Gill [employer] oncology for ovarian cancer Patient denies having any chest pain pressure or shortness of breath Vitals labs intake output medications were reviewed Social history: Reviewed Allergies: Reviewed Family history: Reviewed Physical examination HEENT: Oral mucosa moist no pallor or icterus Neck: Supple no JVD Chest: Clear to auscultation anteriorly CVS: Regular rate and rhythm S1 and S2 heard Abdomen: Soft nontender no suprapubic masses no organomegaly appreciable Abdominal distention with some fluid thrill Extremity: Dry skin less than 1+ peripheral edema Musculoskeletal: No joint effusion noted in knees and ankle Neurological: Alert awake Dermatology: No petechial rashes Psychiatry: No evidence of any agitation and aggression noted Assessment and plan Acute kidney injury in a patient with been admitted with severe dehydration baseline creatinine was around 0.7 in April 2017 1.2 in December 2017 and 2.3 in March 2018 She was taking hydrochlorothiazide in the outpatient setting Blood pressure currently improving 108/61 heart rate 1:15 Patient appears to be mostly prerenal her sodium is 10 with urine creatinine of 156 Protein creatinine ratio 55/156, could be due to dehydration Admitted with very poor by mouth intake with intermittent nausea vomiting poor appetite for last 5-7 days History of metastatic ovarian cancer admitted with ascites: Patient will need a [employer] oncology or oncology follow-up Ascites: She may benefit from, palliative and diagnostic paracentesis Renal function appears to be stable at this time Hyponatremia appears to be better normal bicarbonate level Hypermagnesemia needs follow-up on this Hyperuricemia,? Dehydration? Due to underlying oncological diagnosis continue to follow Patient admitted with very poor by mouth intake appear to be dehydrated upon admission She is a very poor historian Patient was adequately counseled and educated regarding multiple renal related issues Pertinent lab findings were discussed with patient, patient does exhibit good understanding of renal issues We'll continue to follow and make recommendation from renal standpoint Objective - Vital Signs Vital signs: Vital Signs - 12hr 04/28/18 04/29/18 04/29/18 22:00 03:03 08:07 Temperature 97.6 F 97.4 F L Pulse Rate 107 H 115 H Pulse Rate [ 107 H Right Brachial] Respiratory 18 18 18 Rate Blood Pressure 93/53 108/61 O2 Sat by Pulse 95 94 96 Oximetry - Lab 04/29/18 05:56 04/29/18 05:56 Most recent lab results Calcium 8.4 mg/dL (8.4-10.2) 04/29/18 05:56 Magnesium 2.80 mg/dL (1.7-2.3) H 04/28/18 04:16 Urine Creatinine 156.1 mg/dL (0.1-20.0) H 04/28/18 Unknown Urine Sodium 10 mmol/L 04/28/18 Unknown Urine Total Protein 55 mg/dL (5-11.8) H 04/28/18 Unknown Medications & Allergies - Medications Allergies/Adverse Reactions: Allergies lisinopril Allergy (Verified 04/28/18 12:20) Swelling Home Medications: Home Medications Medication Instructions Recorded Confirmed Last Taken Type Cod Liver Oil 1 each PO DAILY 06/07/17 04/28/18 04/20/18 History Ergocalciferol(Vitamin D2)(Nf) 400 unit PO DAILY 06/07/17 04/28/18 04/26/18 10:00 History [Vitamin D (Nf)] One Daily Multivitamin Tablet 1 tab PO DAILY 06/07/17 04/28/18 04/26/18 21:00 History amLODIPine [Norvasc] 10 mg PO DAILY 06/07/17 04/28/18 04/26/18 21:00 History hydroCHLOROthiazide [HCTZ] 12.5 mg PO DAILY 06/07/17 04/28/18 04/26/18 10:00 History Apixaban [Eliquis] 5 mg PO DAILY 04/16/18 04/28/18 04/23/18 21:00 History Active Medications: Generic Name Dose Route Start Last Admin Trade Name Freq PRN Reason Stop Dose Admin Dextrose/Sodium Chloride 1,000 mls @ 125 mls/hr 04/28/18 13:00 04/29/18 07:31 D5ns IV 125 mls/hr DIRECT CATHI Administration Metoclopramide HCl 5 mg 04/28/18 12:43 Reglan IV Q6H PRN Nausea And Vomiting Morphine Sulfate 2 mg 04/28/18 12:21 04/28/18 12:52 Morphine IV 2 mg Q3H PRN Administration Pain, Moderate (4-6) Ondansetron HCl 4 mg 04/28/18 12:22 Zofran IV Q8H PRN N/V unrelieved by Sebastian Pantoprazole Sodium 40 mg 04/28/18 13:00 04/29/18 10:15 Protonix IV 40 mg QDAY CATHI Administration
--- NOTE | 2018-04-29 10:58 | Progress Note ---
Assessment and Plan 67 yo F with 1. pSBO likely secondary to metastatic ovarian cancer and adhesions 2. metastatic ovarian cancer 3. ascites 4. TIARRA secondary to volume depletion Ct Scan A/P compared to Ct scan A/P from Mar 2018. Bowel loop appearance is si milar. Ascites has reaccumulated. Radiology report notes concerns for omental caking and peritoneal studding. Plan: 1. full liquid diet, NPO p MN for paracentesis. May adv diet as tolerated after procedure 2. IVF 3. nephrology on board 4. monitor track layer head 5. paracentesis ordered 6. recommend oncology consult 7. prn pain and nausea control 8. DVT ppx No surgical intervention, will s/o. Thank you, please call with questions. D/W Dr. Mcgraw Subjective Date of service: 04/29/18 Narrative: Pt seen and examined. Feels much better. c/o a minor amount of abdominal tightness. No f/c, cp, sob, n/v. Passing some flatus. No BM. Objective Vital Signs - 12hr 04/28/18 04/29/18 04/29/18 22:00 03:03 08:07 Temperature 97.6 F 97.4 F L Pulse Rate 107 H 115 H Pulse Rate [ 107 H Right Brachial] Respiratory 18 18 18 Rate Blood Pressure 93/53 108/61 O2 Sat by Pulse 95 94 96 Oximetry - General physical appearance Narrative Exam: Gen: AAOx3. NAD CV; S1, S2+ resp: even and unlabored Abd: soft, distended, NT. incisional hernia soft and NT. +ascites Ext: no c/c/e - Labs 04/29/18 05:56 04/29/18 05:56 Diabetes panel 04/29/18 Range/Units 05:56 Sodium 142 D (137-145) mmol/L Potassium 4.0 (3.6-5.0) mmol/L Chloride 101.1 (98-107) mmol/L Carbon Dioxide 22 (22-30) mmol/L BUN 97 H (7-17) mg/dL Creatinine 4.1 H (0.7-1.2) mg/dL Glucose 126 H (65-100) mg/dL Calcium 8.4 (8.4-10.2) mg/dL Calcium panel 04/29/18 Range/Units 05:56 Calcium 8.4 (8.4-10.2) mg/dL Pituitary panel 04/29/18 Range/Units 05:56 Sodium 142 D (137-145) mmol/L Potassium 4.0 (3.6-5.0) mmol/L Chloride 101.1 (98-107) mmol/L Carbon Dioxide 22 (22-30) mmol/L BUN 97 H (7-17) mg/dL Creatinine 4.1 H (0.7-1.2) mg/dL Glucose 126 H (65-100) mg/dL Calcium 8.4 (8.4-10.2) mg/dL Adrenal panel 04/29/18 Range/Units 05:56 Sodium 142 D (137-145) mmol/L Potassium 4.0 (3.6-5.0) mmol/L Chloride 101.1 (98-107) mmol/L Carbon Dioxide 22 (22-30) mmol/L BUN 97 H (7-17) mg/dL Creatinine 4.1 H (0.7-1.2) mg/dL Glucose 126 H (65-100) mg/dL Calcium 8.4 (8.4-10.2) mg/dL
--- NOTE | 2018-04-29 15:13 | Event Note ---
Date: 04/29/18 [id number]
[2018-04-29] MEDS: MORPHINE IV PRN (19:42)
--- NOTE | 2018-04-29 22:33 | Consultation ---
Referred by Dr. Mcgraw. REASON FOR CONSULTATION: Stage IV ovarian cancer. HISTORY OF PRESENT ILLNESS: I saw the patient, a 67-year-old female in the medical floor. The patient says she was diagnosed with ovarian cancer, stage IV in 05/2017. She underwent surgery, hysterectomy for same. Her surgeon was Dr. Gill. She received 6 cycles of, the patient describes, carboplatin and Taxol. She finished this somewhere in October-November. She has a Port-A-Cath. At the time of port placement, she was also found to have neck vein DVT and she was on Eliquis. At this time, she is in transition from Dr. Gill to [facility] oncologist whom she was going to see next week. At this time, she came to the hospital because of abdominal pain, vomiting, and not having bowel movement for a few days. The patient informed to me that she also had radiation to the abdomen in the past and she now has a hernia secondary to surgery. She came to the hospital because she has not been able to eat or keep anything down for 5 days and they were getting worse. Abdomen distention was happening. Radiology suggested bowel obstruction with adhesion and ascites and acute kidney injury. She has been admitted for same. During this admission, the patient has been seen by Surgical team and Nephrology team. I have been asked to evaluate the patient. No headache. There is a plan to start liquid diet. The patient is passing gas, but no bowel movement for a few days, has abdominal discomfort. No chest pain. No shortness of breath at rest. No headache. No visual disturbances. No leg swelling. No seizure or syncope or loss of consciousness. PAST SURGICAL HISTORY: Includes stage IV ovarian cancer, hypertension. PAST SURGICAL HISTORY: Hysterectomy, port placement. SOCIAL HISTORY: Lives alone, has sabianist friends who help her. FAMILY HISTORY: Noncontributory. ALLERGIES: LISINOPRIL. PRESENT MEDICATIONS: Includes metoclopramide, Zofran and Protonix. PHYSICAL EXAMINATION: VITAL SIGNS: Temperature 98, pulse 125, respirations 18, BP 105/75, pallor present. No icterus. NECK: No neck lymph nodes. HEART: S1, S2. Port present on the right side. LUNGS: Clear to auscultation anteriorly. ABDOMEN: Soft. Hernia present on the left side. Distention present. EXTREMITIES: No calf tenderness. NEUROLOGIC: Alert, awake. LABORATORY DATA: White cell 8, hemoglobin 8.6, MCV 83 and platelets 335, neutrophil 6.8. Potassium 4, creatinine 4.1, calcium 9.1 and bilirubin 0.3. RADIOLOGY: CT abdomen and pelvis done on 04/28/2018 shows bowel is distorted, so that is suggesting adhesion, portions of bowels are also dilated, partial obstruction not excluded. There are enlarged mesenteric lymph nodes. IMPRESSION: 1. Metastatic ovarian cancer. 2. The patient was with Dr. Gill, had undergone hysterectomy. It appears the patient received 6 cycles of carboplatin and Taxol. She is not on any oral agent. She also received radiation to the abdomen and there is a plan to go to [facility] oncologist. She does not know the name of the oncologist. I asked her if this is [facility] or [facility], the patient was not sure. 3. History of deep venous thrombosis in the neck. The patient was on Eliquis. This has been held. 4. Bowel obstruction. Surgical team is following the patient. 5. The patient was n.p.o. Now, there is plan for liquid diet. She is having flatus. 6. Anemia. MCV is normal. This may be tumor related. 7. Renal impairment. Nephrology team is following the patient. 8. Hysterectomy in the past. 9. The radiologist mentioned lymph nodes in the abdomen. 10. We will do CA-125. I discussed with her regarding oral agents. I will help her during an inpatient status and then she will see the [facility], with whom she was supposed to have the first visit this week. She will call them for an appointment. JOB# [id number] NM/NTS
--- NOTE | 2018-04-29 22:55 | Progress Note ---
Assessment and Plan Possible small Bowel obstruction, likely from adhesion and underlying malignancy Abdominal pain with n/v, likely from SBO TIARRA, due to volume depletion/vasomator nephropathy Stage 4 Ovarian cancer Ascitis due to malignancy - start diet with full liquid, cont iv fluid, supportive care - GS/renal consulted in the ED, follow renal function - consult Oncology and order for paracenthesis - planned for tomorrow Radiological data: Ct abdomen/pelvis: The bowel is distorted suggesting adhesions. Portions of the bowel are also dilated. Partial obstruction not excluded. There is no bowel wall thickening. .. This similar to prior study. There are enlarged mesenteric lymph nodes.. The urinary bladder is thickened.. There has been a hysterectomy.. There is a large amount of ascites. There is no free air.. This is an umbilical hernia containing portions of bowel and ascites.. . Subjective Date of service: 04/29/18 Interval history: Patient seen and examined States she feels better today, passing flatus No abdominal pain Objective - Exam Narrative Exam: General appearance: Present: no acute distress - EENT Eyes: Present: PERRL ENT: hearing intact, clear oral mucosa - Neck Neck: Present: supple, normal ROM - Respiratory Respiratory effort: normal Respiratory: bilateral: CTA - Cardiovascular Heart Sounds: Present: S1 & S2. Absent: rub, click - Extremities Extremities: pulses symmetrical, No edema Peripheral Pulses: within normal limits - Abdominal General gastrointestinal: Present: soft, non-tender, distended, other (hypoactive BS) - Integumentary Integumentary: Present: clear, warm, dry - Musculoskeletal Musculoskeletal: gait normal, strength equal bilaterally - Psychiatric Psychiatric: appropriate mood/affect, intact judgment & insight - Neurologic Neurologic: CNII-XII intact, moves all extremities - Constitutional Vitals: Vital Signs - 12hr 04/29/18 04/29/18 04/29/18 14:10 18:00 20:00 Temperature 98.1 F 98.8 F Pulse Rate 125 H 120 H 128 H Respiratory 18 20 Rate Blood Pressure 103/64 Blood Pressure 115/75 [Right] O2 Sat by Pulse 99 95 Oximetry - Labs CBC & Chem 7: 04/29/18 05:56 04/29/18 05:56 Labs: Abnormal lab results 04/29/18 04/29/18 Range/Units 05:56 05:56 RBC 3.13 L (3.65-5.03) M/mm3 Hgb 8.6 L (10.1-14.3) gm/dl Hct 26.0 L (30.3-42.9) % MCH 27 L (28-32) pg RDW 18.3 H (13.2-15.2) % Lymph % (Auto) 6.6 L (13.4-35.0) % [place] % (Auto) 12.4 H (0.0-7.3) % Lymph # 0.6 L (1.2-5.4) K/mm3 [place] # 1.0 H (0.0-0.8) K/mm3 Seg Neutrophils % 80.5 H (40.0-70.0) % BUN 97 H (7-17) mg/dL Creatinine 4.1 H (0.7-1.2) mg/dL Glucose 126 H (65-100) mg/dL
[2018-04-30 05:48] LABS: Calcium 8.8 mg/dL (8.4-10.2)
--- NOTE | 2018-04-30 06:02 | Hem/Onc Progress Note ---
Assessment and Plan 1. Metastatic ovarian cancer. 2. The patient was with Dr. Gill, had undergone hysterectomy. It appears the patient received 6 cycles of carboplatin and Taxol. She is not on any oral agent. She also received radiation to the abdomen and there is a plan to go to [facility] oncologist. She does not know the name of the oncologist. I asked her if this is [facility] or [facility], the patient was not sure. 3. History of deep venous thrombosis in the neck. The patient was on Eliquis. This has been held. 4. Bowel obstruction. Surgical team is following the patient. 5. The patient was n.p.o. Now, there is plan for liquid diet. She is having flatus. 6. Anemia. MCV is normal. This may be tumor related. 7. Renal impairment. Nephrology team is following the patient. 8. Hysterectomy in the past. 9. The radiologist mentioned lymph nodes in the abdomen. 10. CA-125. I discussed with her regarding oral agents. I will help her during an inpatient status and then she will see the [facility], with whom she was supposed to have the first visit this week. She will call them for an appointment. paracentesis planned - Patient Problems (1) 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 Current Visit: Yes Status: Acute Subjective Date of service: 04/30/18 Objective - Constitutional Vitals: Last Vital Signs Temp 98.0 F 04/30/18 02:44 Pulse 122 H 04/30/18 02:44 Resp 19 04/30/18 02:44 BP 120/74 04/30/18 02:44 Pulse Ox 95 04/30/18 02:44 Pain Intensity (0-10): 1/10 (abdo) General appearance: no acute distress Performance status: 3-limited selfcare - EENT Eyes: EOM intact ENT: clear oral mucosa Lymph node exam: negative cervical - Neck Neck: normal ROM - Respiratory Respiratory effort: Positive: normal Respiratory: bilateral: CTA - Cardiovascular Heart Sounds: Present: S1 & S2 Extremities: No edema - Gastrointestinal General gastrointestinal: Present: soft, non-tender Rectal Exam: deferred - Genitourinary Female genitourinary: Present: deferred - Integumentary Integumentary: warm - Musculoskeletal Musculoskeletal: strength equal bilaterally - Neurologic Neurologic: moves all extremities - Psychiatric Psychiatric: appropriate mood/affect - Labs Lab Results: Laboratory Results - last 24 hr 04/29/18 04/29/18 04/30/18 05:56 05:56 04:33 WBC 8.5 RBC 3.13 L Hgb 8.6 L Hct 26.0 L MCV 83 MCH 27 L MCHC 33 RDW 18.3 H Plt Count 335 Lymph % (Auto) 6.6 L [place] % (Auto) 12.4 H Eos % (Auto) 0.2 Baso % (Auto) 0.3 Lymph # 0.6 L [place] # 1.0 H Eos # 0.0 Baso # 0.0 Seg Neutrophils % 80.5 H Seg Neutrophils # 6.8 Sodium 142 D 142 Potassium 4.0 4.2 Chloride 101.1 102.0 Carbon Dioxide 22 21 L Anion Gap 23 23 BUN 97 H 96 H Creatinine 4.1 H 4.1 H Estimated GFR 13 13 BUN/Creatinine Ratio 24 23 Glucose 126 H 123 H Calcium 8.4 8.8 Medications & Allergies - Medications Allergies/Adverse Reactions: Allergies lisinopril Allergy (Verified 04/28/18 12:20) Swelling Home Medications: Home Medications Medication Instructions Recorded Confirmed Last Taken Type Ergocalciferol(Vitamin D2)(Nf) 400 unit PO DAILY 06/07/17 04/28/18 04/26/18 10:00 History [Vitamin D (Nf)] One Daily Multivitamin Tablet 1 tab PO DAILY 06/07/17 04/28/18 04/26/18 21:00 History RX: Cod Liver Oil 1 each PO DAILY 06/07/17 04/28/18 04/20/18 History RX: amLODIPine [Norvasc] 10 mg PO DAILY 06/07/17 04/28/18 04/26/18 21:00 History RX: hydroCHLOROthiazide [HCTZ] 12.5 mg PO DAILY 06/07/17 04/28/18 04/26/18 10:00 History Apixaban [Eliquis] 5 mg PO DAILY 04/16/18 04/28/18 04/23/18 21:00 History Active Medications: Generic Name Dose Route Start Last Admin Trade Name Freq PRN Reason Stop Dose Admin Dextrose/Sodium Chloride 1,000 mls @ 125 mls/hr 04/28/18 13:00 04/29/18 15:36 D5ns IV 125 mls/hr DIRECT CATHI Administration Metoclopramide HCl 5 mg 04/28/18 12:43 Reglan IV Q6H PRN Nausea And Vomiting Morphine Sulfate 2 mg 04/28/18 12:21 04/29/18 19:42 Morphine IV 2 mg Q3H PRN Administration Pain, Moderate (4-6) Ondansetron HCl 4 mg 04/28/18 12:22 Zofran IV Q8H PRN N/V unrelieved by Reglan Pantoprazole Sodium 40 mg 04/28/18 13:00 04/29/18 10:15 Protonix IV 40 mg QDAY CATHI Administration
[2018-04-30] MEDS: PROTONIX IV SCH (09:08)
--- NOTE | 2018-04-30 09:16 | Progress Note ---
Subjective Interval history: Patient was seen today for follow-up on multiple renal related issues She is feeling better today for complaints of any dryness in her mouth Creatinine remains stable at this time Vitals labs intake output medications were reviewed Social history: Reviewed Allergies: Reviewed Family history: Reviewed Physical examination HEENT: Oral mucosa moist no pallor or icterus Neck: Supple no JVD Chest: Clear to auscultation anteriorly CVS: Regular rate and rhythm S1 and S2 heard Abdomen: Soft nontender no suprapubic masses no organomegaly appreciable Abdominal distention with some fluid thrill Extremity: Dry skin less than 1+ peripheral edema Musculoskeletal: No joint effusion noted in knees and ankle Neurological: Alert awake Dermatology: No petechial rashes Psychiatry: No evidence of any agitation and aggression noted Assessment and plan Renal failure likely acute kidney injury baseline creatinine was 0.7 in April 2017 1.2 in December 2017 and 2.3 in March 2018 Acute kidney injury likely in a patient who was admitted with severe volume depletion was also on hydrochlorothiazide, has history of ovarian cancer treated with chemotherapy as well as radiation therapy, now presenting with ascites, rule out recurrent disease lout other causes for ascites Likely patient's feeling much better she was volume depleted markedly Likely etiology of renal failure appears to be due to acute tubular necrosis, severe volume depletion, rule out other causes Severe hyperuricemia likely due to dehydration hydrochlorothiazide therapy to follow Urinalysis showed only 30 mg of protein in the urine with 7 red blood cell patient's urine sodium was only 10 Anemia: Multifactorial patient does have history of ovarian cancer, She is currently being followed by oncology Will order for a dedicated renal ultrasonogram Patient needs a CA-125 level, she also needs a [employer] oncology evaluation We'll continue to follow and make recommendation from renal standpoint Objective - Vital Signs Vital signs: Vital Signs - 12hr 04/29/18 04/30/18 04/30/18 22:00 02:44 04:19 Temperature 98.0 F Pulse Rate 122 H 115 H Pulse Rate [ 128 H From Monitor] Respiratory 20 19 Rate Blood Pressure 120/74 O2 Sat by Pulse 95 95 Oximetry 04/30/18 04/30/18 08:02 08:04 Temperature 98.0 F Pulse Rate 118 H 117 H Pulse Rate [ From Monitor] Respiratory 20 Rate Blood Pressure 115/77 O2 Sat by Pulse 96 95 Oximetry - Lab 04/29/18 05:56 04/30/18 04:33 Most recent lab results Calcium 8.8 mg/dL (8.4-10.2) 04/30/18 04:33 Magnesium 2.80 mg/dL (1.7-2.3) H 04/28/18 04:16 Urine Creatinine 156.1 mg/dL (0.1-20.0) H 04/28/18 Unknown Urine Sodium 10 mmol/L 04/28/18 Unknown Urine Total Protein 55 mg/dL (5-11.8) H 04/28/18 Unknown Medications & Allergies - Medications Allergies/Adverse Reactions: Allergies lisinopril Allergy (Verified 04/28/18 12:20) Swelling Home Medications: Home Medications Medication Instructions Recorded Confirmed Last Taken Type Cod Liver Oil 1 each PO DAILY 06/07/17 04/28/18 04/20/18 History Ergocalciferol(Vitamin D2)(Nf) 400 unit PO DAILY 06/07/17 04/28/18 04/26/18 10:00 History [Vitamin D (Nf)] One Daily Multivitamin Tablet 1 tab PO DAILY 06/07/17 04/28/18 04/26/18 21:00 History amLODIPine [Norvasc] 10 mg PO DAILY 06/07/17 04/28/18 04/26/18 21:00 History hydroCHLOROthiazide [HCTZ] 12.5 mg PO DAILY 06/07/17 04/28/18 04/26/18 10:00 History Apixaban [Eliquis] 5 mg PO DAILY 04/16/18 04/28/18 04/23/18 21:00 History Active Medications: Generic Name Dose Route Start Last Admin Trade Name Freq PRN Reason Stop Dose Admin Dextrose/Sodium Chloride 1,000 mls @ 125 mls/hr 04/28/18 13:00 04/29/18 15:36 D5ns IV 125 mls/hr DIRECT CATHI Administration Metoclopramide HCl 5 mg 04/28/18 12:43 Reglan IV Q6H PRN Nausea And Vomiting Morphine Sulfate 2 mg 04/28/18 12:21 04/29/18 19:42 Morphine IV 2 mg Q3H PRN Administration Pain, Moderate (4-6) Ondansetron HCl 4 mg 04/28/18 12:22 Zofran IV Q8H PRN N/V unrelieved by Reglan Pantoprazole Sodium 40 mg 04/28/18 13:00 04/30/18 09:08 Protonix IV 40 mg QDAY CATHI Administration
[2018-04-30] MEDS: D5NS 1,000 ML IV SCH ×2 (10:56→20:17)
--- NOTE | 2018-04-30 15:40 | Progress Note ---
Assessment and Plan Possible small Bowel obstruction, likely from adhesion and underlying malignancy Abdominal pain with n/v, likely from SBO TIARRA, due to volume depletion/vasomator nephropathy Stage 4 Ovarian cancer Ascitis due to malignancy - cont diet with full liquid, cont iv fluid, supportive care - GS/renal consulted in the ED, follow renal function - consulted Oncology and ordered for paracenthesis - planned for today but postponded tomorrow by IR Brief History: 67 yo F with hx of metastatic ovarian cancer s/p hysterectomy with chemo and radiation therapy, ascitis requiring periodic paracentesis presented with 5 days of persistent nausea, vomiting, abdominal tightness, weakness. Initial work up in the ER suggesting possible bowel obstruction with adhesion per CT abdomen/pelvis, significant ascitis and TIARRA. GS consulted in the ED and recommended no surgical intervention. She is tolerating full liquid diet. Waiting for paracentesis. Radiological data: Ct abdomen/pelvis: The bowel is distorted suggesting adhesions. Portions of the bowel are also dilated. Partial obstruction not excluded. There is no bowel wall thickening. .. This similar to prior study. There are enlarged mesenteric lymph nodes.. The urinary bladder is thickened.. There has been a hysterectomy.. There is a large amount of ascites. There is no free air.. This is an umbilical hernia containing portions of bowel and ascites.. . Subjective Date of service: 04/30/18 Interval history: Patient seen and examined No BM, passing flatus c/o abdominal pain and distention Planed for paracentesis today, but got postponded Objective - Exam Narrative Exam: General appearance: Present: no acute distress - EENT Eyes: Present: PERRL ENT: hearing intact, clear oral mucosa - Neck Neck: Present: supple, normal ROM - Respiratory Respiratory effort: normal Respiratory: bilateral: CTA - Cardiovascular Heart Sounds: Present: S1 & S2. Absent: rub, click - Extremities Extremities: pulses symmetrical, No edema Peripheral Pulses: within normal limits - Abdominal General gastrointestinal: Present: soft, non-tender, distended, other (hypoactive BS) - Integumentary Integumentary: Present: clear, warm, dry - Musculoskeletal Musculoskeletal: gait normal, strength equal bilaterally - Psychiatric Psychiatric: appropriate mood/affect, intact judgment & insight - Neurologic Neurologic: CNII-XII intact, moves all extremities - Constitutional Vitals: Vital Signs - 12hr 04/30/18 04/30/18 04/30/18 04:19 08:02 08:04 Temperature 98.0 F Pulse Rate 115 H 118 H 117 H Pulse Rate [ From Monitor] Respiratory 20 Rate Blood Pressure 115/77 O2 Sat by Pulse 96 95 Oximetry 04/30/18 04/30/18 04/30/18 10:00 12:00 13:34 Temperature 97.9 F Pulse Rate 120 H 121 H Pulse Rate [ 120 H From Monitor] Respiratory 20 21 Rate Blood Pressure 99/66 O2 Sat by Pulse 96 95 Oximetry - Labs CBC & Chem 7: 04/29/18 05:56 04/30/18 04:33 Labs: Abnormal lab results 04/30/18 Range/Units 04:33 Carbon Dioxide 21 L (22-30) mmol/L BUN 96 H (7-17) mg/dL Creatinine 4.1 H (0.7-1.2) mg/dL Glucose 123 H (65-100) mg/dL
[2018-05-01] MEDS: D5NS 1,000 ML IV SCH (06:32)
--- NOTE | 2018-05-01 08:38 | Hem/Onc Progress Note ---
Assessment and Plan 1. Metastatic ovarian cancer. 2. The patient was with Dr. Gill, had undergone hysterectomy. It appears the patient received 6 cycles of carboplatin and Taxol. She is not on any oral agent. She also received radiation to the abdomen and there is a plan to go to [facility] oncologist. She does not know the name of the oncologist. I asked her if this is [facility] or [facility], the patient was not sure. 3. History of deep venous thrombosis in the neck. The patient was on Eliquis. This has been held. 4. Bowel obstruction. Surgical team is following the patient. 5. The patient was n.p.o. Now, there is plan for liquid diet. She is having flatus. 6. Anemia. MCV is normal. This may be tumor related. 7. Renal impairment. Nephrology team is following the patient. 8. Hysterectomy in the past. 9. The radiologist mentioned lymph nodes in the abdomen. 10. CA-125. I discussed with her regarding oral agents. I will help her during an inpatient status and then she will see the [facility], with whom she was supposed to have the first visit this week. She will call them for an appointment. paracentesis planned 05/01- paracentesis - Patient Problems (1) 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 Current Visit: Yes Status: Acute Subjective Date of service: 05/01/18 Principal diagnosis: ovarian cancer Interval history: paracentesis Objective - Constitutional Vitals: Last Vital Signs Temp 97.2 F L 05/01/18 07:47 Pulse 125 H 05/01/18 07:47 Resp 20 05/01/18 07:47 BP 116/72 05/01/18 07:47 Pulse Ox 98 05/01/18 07:47 Pain Intensity (0-10): 1/10 (abdo) General appearance: no acute distress Performance status: 3-limited selfcare - EENT Eyes: EOM intact ENT: clear oral mucosa Lymph node exam: negative cervical - Neck Neck: normal ROM - Respiratory Respiratory effort: Positive: normal Respiratory: bilateral: CTA - Cardiovascular Heart Sounds: Present: S1 & S2 Extremities: normal temperature - Gastrointestinal General gastrointestinal: Present: distended Rectal Exam: deferred - Genitourinary Female genitourinary: Present: deferred - Musculoskeletal Musculoskeletal: strength equal bilaterally - Neurologic Neurologic: moves all extremities Medications & Allergies - Medications Allergies/Adverse Reactions: Allergies lisinopril Allergy (Verified 04/28/18 12:20) Swelling Home Medications: Home Medications Medication Instructions Recorded Confirmed Last Taken Type Cod Liver Oil 1 each PO DAILY 06/07/17 04/28/18 04/20/18 History Ergocalciferol(Vitamin D2)(Nf) 400 unit PO DAILY 06/07/17 04/28/18 04/26/18 10:00 History [Vitamin D (Nf)] One Daily Multivitamin Tablet 1 tab PO DAILY 06/07/17 04/28/18 04/26/18 21:00 History amLODIPine [Norvasc] 10 mg PO DAILY 06/07/17 04/28/18 04/26/18 21:00 History hydroCHLOROthiazide [HCTZ] 12.5 mg PO DAILY 06/07/17 04/28/18 04/26/18 10:00 History Apixaban [Eliquis] 5 mg PO DAILY 04/16/18 04/28/18 04/23/18 21:00 History Active Medications: Generic Name Dose Route Start Last Admin Trade Name Freq PRN Reason Stop Dose Admin Dextrose/Sodium Chloride 1,000 mls @ 125 mls/hr 04/28/18 13:00 05/01/18 06:32 D5ns IV 125 mls/hr DIRECT CATHI Administration Metoclopramide HCl 5 mg 04/28/18 12:43 Reglan IV Q6H PRN Nausea And Vomiting Morphine Sulfate 2 mg 04/28/18 12:21 04/29/18 19:42 Morphine IV 2 mg Q3H PRN Administration Pain, Moderate (4-6) Ondansetron HCl 4 mg 04/28/18 12:22 Zofran IV Q8H PRN N/V unrelieved by Reglan Pantoprazole Sodium 40 mg 04/28/18 13:00 04/30/18 09:08 Protonix IV 40 mg QDAY CATHI Administration
--- NOTE | 2018-05-01 09:05 | Progress Note ---
Subjective Interval history: Patient was seen today for follow-up on multiple renal related issues She is feeling better today for complaints of any dryness in her mouth Creatinine remains stable at this time patient stated that she makes urine Intake and output not measured accurately Patient needs follow-up lab today Pending CA-125 level Vitals labs intake output medications were reviewed Social history: Reviewed Allergies: Reviewed Family history: Reviewed Physical examination HEENT: Oral mucosa moist no pallor or icterus Neck: Supple no JVD Chest: Clear to auscultation anteriorly CVS: Regular rate and rhythm S1 and S2 heard Abdomen: Soft nontender no suprapubic masses no organomegaly appreciable Abdominal distention with some fluid thrill Extremity: Dry skin less than 1+ peripheral edema Musculoskeletal: No joint effusion noted in knees and ankle Neurological: Alert awake Dermatology: No petechial rashes Psychiatry: No evidence of any agitation and aggression noted Assessment and plan Acute severe renal failure: Patient does need follow-up labs no indication for renal replacement therapy at this time Patient will need daily basic metabolic profile as well as strict intake and output She needs to be in IV fluid, Will need to obtain a renal ultrasound Likely etiology of renal failure appears to be due to acute tubular necrosis due to severe intravascular volume depletion Possibility of drug-induced interstitial nephritis cannot be ruled out due to hydrochlorothiazide Her renal prognosis appears to be poor, her overall prognosis also appears to be poor due to recurrent ovarian cancer Ascites mostly resulting from ovarian cancer likely rule out other causes Will follow-up on the pending labs today Mildly tachycardic: Etiology unclear to be followed by Hospital medicine partly anxiety distress from abdominal distention Patient has been diagnosed with small bowel obstruction, abdominal pain nausea vomiting stage IV ovarian cancer. Is no emergent indication for renal replacement therapy for now Urine output needs to be measured accurately may need a [place] catheter Likely etiology of renal failure appears to be due to acute tubular necrosis, severe volume depletion, rule out other causes Severe hyperuricemia likely due to dehydration hydrochlorothiazide therapy to follow Urinalysis showed only 30 mg of protein in the urine with 7 red blood cell patient's urine sodium was only 10 Anemia: Multifactorial patient does have history of ovarian cancer, She is currently being followed by oncology Will order for a dedicated renal ultrasonogram today Patient needs a CA-125 level, she also needs a [employer] oncology evaluation We'll continue to follow and make recommendation from renal standpoint Objective - Vital Signs Vital signs: Vital Signs - 12hr 04/30/18 05/01/18 05/01/18 22:00 02:36 04:00 Temperature 99.2 F Pulse Rate 121 H 121 H Pulse Rate [ 126 H From Monitor] Respiratory 20 22 Rate Blood Pressure 141/78 O2 Sat by Pulse 95 95 Oximetry 05/01/18 07:47 Temperature 97.2 F L Pulse Rate 125 H Pulse Rate [ From Monitor] Respiratory 20 Rate Blood Pressure 116/72 O2 Sat by Pulse 98 Oximetry - Lab 04/29/18 05:56 04/30/18 04:33 Most recent lab results Calcium 8.8 mg/dL (8.4-10.2) 04/30/18 04:33 Magnesium 2.80 mg/dL (1.7-2.3) H 04/28/18 04:16 Urine Creatinine 156.1 mg/dL (0.1-20.0) H 04/28/18 Unknown Urine Sodium 10 mmol/L 04/28/18 Unknown Urine Total Protein 55 mg/dL (5-11.8) H 04/28/18 Unknown Medications & Allergies - Medications Allergies/Adverse Reactions: Allergies lisinopril Allergy (Verified 04/28/18 12:20) Swelling Home Medications: Home Medications Medication Instructions Recorded Confirmed Last Taken Type Cod Liver Oil 1 each PO DAILY 06/07/17 04/28/18 04/20/18 History Ergocalciferol(Vitamin D2)(Nf) 400 unit PO DAILY 06/07/17 04/28/18 04/26/18 10:00 History [Vitamin D (Nf)] One Daily Multivitamin Tablet 1 tab PO DAILY 06/07/17 04/28/18 04/26/18 21:00 History amLODIPine [Norvasc] 10 mg PO DAILY 06/07/17 04/28/18 04/26/18 21:00 History hydroCHLOROthiazide [HCTZ] 12.5 mg PO DAILY 06/07/17 04/28/18 04/26/18 10:00 History Apixaban [Eliquis] 5 mg PO DAILY 04/16/18 04/28/18 04/23/18 21:00 History Active Medications: Generic Name Dose Route Start Last Admin Trade Name Freq PRN Reason Stop Dose Admin Dextrose/Sodium Chloride 1,000 mls @ 125 mls/hr 04/28/18 13:00 05/01/18 06:32 D5ns IV 125 mls/hr DIRECT CATHI Administration Metoclopramide HCl 5 mg 04/28/18 12:43 Reglan IV Q6H PRN Nausea And Vomiting Morphine Sulfate 2 mg 04/28/18 12:21 04/29/18 19:42 Morphine IV 2 mg Q3H PRN Administration Pain, Moderate (4-6) Ondansetron HCl 4 mg 04/28/18 12:22 Zofran IV Q8H PRN N/V unrelieved by Sebastian Pantoprazole Sodium 40 mg 04/28/18 13:00 04/30/18 09:08 Protonix IV 40 mg QDAY CATHI Administration
--- NOTE | 2018-05-01 09:29 | Procedure Note ---
Date of procedure: 05/01/18 Pre-op diagnosis: ascites Post-op diagnosis: same Procedure: US paracentesis Findings: mod-lrg ascites Anesthesia: local Surgeon: ECTOR CASPER Estimated blood loss: none Pathology: none Specimen disposition: discarded Condition: stable Disposition: floor
--- NOTE | 2018-05-01 11:08 | Ultrasound Report ---
ULTRASOUND PARACENTESIS HISTORY: Ascites. DESCRIPTION OF PROCEDURE: A time out was performed. Informed consent was obtained. Sterile technique was utilized. Using ultrasound guidance, a 5 [place] centesis needle was advanced into the peritoneal space. There was spontaneous return of clear yellow fluid. 3.5 L of fluid was drained. No complications. IMPRESSION: Successful ultrasound-guided paracentesis.
[2018-05-01] MEDS: REGLAN IV PRN ×2 (11:37→18:57)
[2018-05-01] MEDS: PROTONIX IV SCH (11:37)
[2018-05-01] MEDS: ZOFRAN IV PRN (11:44)
--- NOTE | 2018-05-01 13:43 | Ultrasound Report ---
ULTRASOUND RENAL BILATERAL HISTORY: Renal failure. TECHNIQUE: transabdominal ultrasound with color Doppler interrogation. COMPARISON: CT abdomen pelvis without contrast dated 04/28/18. FINDINGS: The right kidney measures 9.2 x 4.5 x 5.2cm. Right renal cortex: 1.3cm. The left kidney measures 9.4 x 4.4 x 4.5cm. Left renal cortex: 1.4cm. Both kidneys are at the lower limits of normal size. There is increased renal cortical echotexture bilaterally consistent with nonspecific renal parenchymal disease. Corticomedullary differentiation is preserved. No evidence for cystic disease, mass, nephrolithiasis, hydronephrosis or perinephric fluid. The views of the bladder and the region of the ureters appear normal. IMPRESSION: Renal parenchymal disease.
--- NOTE | 2018-05-01 16:34 | Progress Note ---
Assessment and Plan Assessment and plan: 67-year-old woman with past medical history of stage IV, recurrence papillary serous endometrial carcinoma. She is status post hysterectomy, has received multiple rounds of chemotherapy and radiation therapy. She has just established with Dr. Palacio should be seen for ongoing chemotherapy. She presented with nausea vomiting abdominal tightness and weakness. The patient has received paracentesis, 3.5 L of fluid have been removed. -Diagnosis Small bowel obstruction Multiple intra-abdominal adhesions and seeding of malignancy in the abdomen Acute on chronic kidney disease, she suffered toxicity from chemotherapy to her kidneys Stage IV endometrial carcinoma Malignant ascites Plan Continue IV fluids, continue NG to nasal suction, advance diet when okayed by general surgery Nephrology appreciated, avoid nephrotoxins Oncology appreciated The patient would like to get better and follow up with Dr. Palacio for chemotherapy, but is currently her goal DVT prophylaxis; chemical History Interval history: Review of systems Constitutional: No fevers, no malaise, no joint pains CVS: No chest pain, no orthopnea, no dyspnea on exertion, no pedal edema GI: No abdominal pain, no diarrhea, no vomiting, no constipation Respiratory: No shortness of breath, no wheezing, no coughing Hospitalist Physical - Physical exam Narrative exam: General.: Appears well, no distress, nontoxic HEENT: Moist mucous membranes, extraocular muscles intact, no lymphadenopathy Neck: supple Cardiac: S1-S2 heard Lungs: clear to auscultation bilaterally Abdomen: soft , nontender, nondistended, bowel sounds positive Extremities: no edema clubbing or cyanosis Skin: no rash or lesions Neurologic: no gross focal deficits Psych: calm, and cooperative - Constitutional Vitals: Temp Pulse Resp BP Pulse Ox 97.8 F 118 H 20 125/73 100 05/01/18 14:04 05/01/18 14:04 05/01/18 14:04 05/01/18 14:04 05/01/18 14:04 General appearance: Present: no acute distress Results - Labs CBC & Chem 7: 05/03/18 04:52 05/08/18 08:41 Labs: Laboratory Last Values WBC 8.5 K/mm3 (4.5-11.0) 04/29/18 05:56 RBC 3.13 M/mm3 (3.65-5.03) L 04/29/18 05:56 Hgb 8.6 gm/dl (10.1-14.3) L 04/29/18 05:56 Hct 26.0 % (30.3-42.9) L 04/29/18 05:56 MCV 83 fl (79-97) 04/29/18 05:56 MCH 27 pg (28-32) L 04/29/18 05:56 MCHC 33 % (30-34) 04/29/18 05:56 RDW 18.3 % (13.2-15.2) H 04/29/18 05:56 Plt Count 335 K/mm3 (140-440) 04/29/18 05:56 Lymph % (Auto) 6.6 % (13.4-35.0) L 04/29/18 05:56 [place] % (Auto) 12.4 % (0.0-7.3) H 04/29/18 05:56 Eos % (Auto) 0.2 % (0.0-4.3) 04/29/18 05:56 Baso % (Auto) 0.3 % (0.0-1.8) 04/29/18 05:56 Lymph # 0.6 K/mm3 (1.2-5.4) L 04/29/18 05:56 [place] # 1.0 K/mm3 (0.0-0.8) H 04/29/18 05:56 Eos # 0.0 K/mm3 (0.0-0.4) 04/29/18 05:56 Baso # 0.0 K/mm3 (0.0-0.1) 04/29/18 05:56 Seg Neutrophils % 80.5 % (40.0-70.0) H 04/29/18 05:56 Seg Neutrophils # 6.8 K/mm3 (1.8-7.7) 04/29/18 05:56 PT 16.3 Sec. (12.2-14.9) H 04/28/18 04:16 INR 1.23 (0.87-1.13) H 04/28/18 04:16 Sodium 142 mmol/L (137-145) 04/30/18 04:33 Potassium 4.2 mmol/L (3.6-5.0) 04/30/18 04:33 Chloride 102.0 mmol/L (98-107) 04/30/18 04:33 Carbon Dioxide 21 mmol/L (22-30) L 04/30/18 04:33 Anion Gap 23 mmol/L 04/30/18 04:33 BUN 96 mg/dL (7-17) H 04/30/18 04:33 Creatinine 4.1 mg/dL (0.7-1.2) H 04/30/18 04:33 Estimated GFR 13 ml/min 04/30/18 04:33 BUN/Creatinine Ratio 23 % 04/30/18 04:33 Glucose 123 mg/dL (65-100) H 04/30/18 04:33 Osmolality 324 Mosm/kg 04/28/18 14:47 Uric Acid 16.8 mg/dL (3.5-7.6) H 04/28/18 14:47 Calcium 8.8 mg/dL (8.4-10.2) 04/30/18 04:33 Magnesium 2.80 mg/dL (1.7-2.3) H 04/28/18 04:16 Total Bilirubin 0.30 mg/dL (0.1-1.2) 04/27/18 21:46 AST 22 units/L (5-40) 04/27/18 21:46 ALT 11 units/L (7-56) 04/27/18 21:46 Alkaline Phosphatase 92 units/L (35-129) 04/27/18 21:46 Total Creatine Kinase 38 units/L (30-135) 04/28/18 04:16 Total Protein 6.8 g/dL (6.3-8.2) 04/27/18 21:46 Albumin 3.0 g/dL (3.9-5) L 04/27/18 21:46 Albumin/Globulin Ratio 0.8 % 04/27/18 21:46 Urine Color Yellow (Yellow) 04/28/18 Unknown Urine Turbidity Slightly-cloudy (Clear) 04/28/18 Unknown Urine pH 5.0 (5.0-7.0) 04/28/18 Unknown Ur Specific [place] 1.015 (1.003-1.030) 04/28/18 Unknown Urine Protein 30 mg/dl mg/dL (Negative) 04/28/18 Unknown Urine Glucose (UA) Neg mg/dL (Negative) 04/28/18 Unknown Urine Ketones Neg mg/dL (Negative) 04/28/18 Unknown Urine Blood Neg (Negative) 04/28/18 Unknown Urine Nitrite Neg (Negative) 04/28/18 Unknown Urine Bilirubin Neg (Negative) 04/28/18 Unknown Urine Urobilinogen < 2.0 mg/dL (<2.0) 04/28/18 Unknown Ur Leukocyte Esterase Tr (Negative) 04/28/18 Unknown Urine WBC (Auto) 7.0 /HPF (0.0-6.0) H 04/28/18 Unknown Urine RBC (Auto) 2.0 /HPF (0.0-6.0) 04/28/18 Unknown U Epithel Cells (Auto) 2.0 /HPF (0-13.0) 04/28/18 Unknown Urine Bacteria (Auto) 1+ /HPF (Negative) 04/28/18 Unknown Ur Transition Epith Cell 2 /HPF 04/28/18 Unknown Urine Creatinine 156.1 mg/dL (0.1-20.0) H 04/28/18 Unknown Urine Sodium 10 mmol/L 04/28/18 Unknown Urine Total Protein 55 mg/dL (5-11.8) H 04/28/18 Unknown
[2018-05-01] MEDS ORDERED: NACL 0.9% 1000 ML 1,000 ML IV SCH (23:00)
[2018-05-02 07:02] LABS: Calcium 8.6 mg/dL (8.4-10.2)
[2018-05-02 07:03] LABS: Hematocrit 29.7 % (30.3-42.9); Hemoglobin 9.5 gm/dl (10.1-14.3); Mean Corpuscular HGB Conc 32 % (30-34); Mean Corpuscular Volume 86 fl (79-97); Red Blood Count 3.46 M/mm3 (3.65-5.03)
[2018-05-02 07:04] LABS: Platelet Count 282 K/mm3 (140-440)
--- NOTE | 2018-05-02 07:35 | Hem/Onc Progress Note ---
Assessment and Plan 1. Metastatic ovarian cancer. 2. The patient was with Dr. Gill, had undergone hysterectomy. It appears the patient received 6 cycles of carboplatin and Taxol. She is not on any oral agent. She also received radiation to the abdomen and there is a plan to go to [facility] oncologist. She does not know the name of the oncologist. I asked her if this is [facility] or [facility], the patient was not sure. 3. History of deep venous thrombosis in the neck. The patient was on Eliquis. This has been held. 4. Bowel obstruction. Surgical team is following the patient. 5. The patient was n.p.o. Now, there is plan for liquid diet. She is having flatus. 6. Anemia. MCV is normal. This may be tumor related. 7. Renal impairment. Nephrology team is following the patient. 8. Hysterectomy in the past. 9. The radiologist mentioned lymph nodes in the abdomen. 10. CA-125. I discussed with her regarding oral agents. I will help her during an inpatient status and then she will see the [facility], with whom she was supposed to have the first visit this week. She will call them for an appointment. paracentesis planned 05/02 - s/p paracentesis on 05/01 rt leg edema - DVT study pt has OP follow up with new oncologist mild anemia - def Ix - Patient Problems (1) 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 Current Visit: Yes Status: Acute Subjective Date of service: 05/02/18 Principal diagnosis: ovarian ca Interval history: s/p paracentesis Objective - Constitutional Vitals: Last Vital Signs Temp 97.9 F 05/02/18 02:13 Pulse 122 H 05/02/18 02:13 Resp 18 05/02/18 02:13 BP 126/78 05/02/18 02:13 Pulse Ox 95 05/02/18 02:13 Pain Intensity (0-10): denies any pain (at rest) General appearance: no acute distress Performance status: 3-limited selfcare - EENT Eyes: EOM intact ENT: clear oral mucosa Lymph node exam: negative cervical - Neck Neck: normal ROM - Respiratory Respiratory effort: Positive: normal Respiratory: bilateral: CTA - Cardiovascular Heart Sounds: Present: S1 & S2 Extremity abnormal: edema (rt leg) - Gastrointestinal General gastrointestinal: Present: soft, distended Rectal Exam: deferred - Genitourinary Female genitourinary: Present: deferred - Integumentary Integumentary: warm - Musculoskeletal Musculoskeletal: strength equal bilaterally - Neurologic Neurologic: moves all extremities - Labs Lab Results: Laboratory Results - last 24 hr 04/30/18 05/02/18 05/02/18 04:33 06:36 06:36 WBC 13.6 H RBC 3.46 L Hgb 9.5 L Hct 29.7 L MCV 86 MCH 28 MCHC 32 RDW 19.0 H Plt Count 282 Lymph % (Auto) [employer] [place] % (Auto) [employer] Eos % (Auto) [employer] Executive Baso % (Auto) Account [employer] Executive Lymph # [employer] [place] # [employer] Executive Eos # Account Development Executive Baso # Account Development Executive Seg Neutrophils % Account [employer] Executive Seg Neutrophils # [employer] Executive Sodium 144 Potassium 4.4 Chloride 111.6 H Carbon Dioxide 17 L Anion Gap 20 BUN 94 H Creatinine 3.7 H Estimated GFR 15 BUN/Creatinine Ratio 25 Glucose 129 H Calcium 8.6 CA 125 Antigen 1208 H Medications & Allergies - Medications Allergies/Adverse Reactions: Allergies lisinopril Allergy (Verified 04/28/18 12:20) Swelling Home Medications: Home Medications Medication Instructions Recorded Confirmed Last Taken Type Cod Liver Oil 1 each PO DAILY 06/07/17 04/28/18 04/20/18 History Ergocalciferol(Vitamin D2)(Nf) 400 unit PO DAILY 06/07/17 04/28/18 04/26/18 10:00 History [Vitamin D (Nf)] One Daily Multivitamin Tablet 1 tab PO DAILY 06/07/17 04/28/18 04/26/18 21:00 History amLODIPine [Norvasc] 10 mg PO DAILY 06/07/17 04/28/18 04/26/18 21:00 History hydroCHLOROthiazide [HCTZ] 12.5 mg PO DAILY 06/07/17 04/28/18 04/26/18 10:00 History Apixaban [Eliquis] 5 mg PO DAILY 04/16/18 04/28/18 04/23/18 21:00 History Active Medications: Generic Name Dose Route Start Last Admin Trade Name Freq PRN Reason Stop Dose Admin Sodium Chloride 1,000 mls @ 75 mls/hr 05/01/18 23:00 05/01/18 23:57 Nacl 0.9% 1000 Ml IV 75 mls/hr DIRECT CATHI Administration Metoclopramide HCl 5 mg 04/28/18 12:43 05/01/18 18:57 Reglan IV 5 mg Q6H PRN Administration Nausea And Vomiting Morphine Sulfate 2 mg 04/28/18 12:21 04/29/18 19:42 Morphine IV 2 mg Q3H PRN Administration Pain, Moderate (4-6) Ondansetron HCl 4 mg 04/28/18 12:22 05/01/18 11:44 Zofran IV 4 mg Q8H PRN Administration N/V unrelieved by Sebastian Pantoprazole Sodium 40 mg 04/28/18 13:00 05/01/18 11:37 Protonix IV 40 mg QDAY CATHI Administration
[2018-05-02] MEDS: PROTONIX IV SCH (09:02)
--- NOTE | 2018-05-02 09:05 | Progress Note ---
Assessment and Plan Assessment and plan: 67-year-old woman with past medical history of stage IV, recurrence papillary serous endometrial carcinoma. She is status post hysterectomy, has received multiple rounds of chemotherapy and radiation therapy. She has just established with Dr. Palacio should be seen for ongoing chemotherapy. She presented with nausea vomiting abdominal tightness and weakness. The patient has received paracentesis, 3.5 L of fluid have been removed. -Diagnosis Small bowel obstruction Multiple intra-abdominal adhesions and seeding of malignancy in the abdomen Acute on chronic kidney disease, she suffered toxicity from chemotherapy to her kidneys Stage IV endometrial carcinoma Malignant ascites Plan Continue IV fluids, continue NG to nasal suction, advance diet when okayed by general surgery Nephrology appreciated, avoid nephrotoxins Oncology appreciated The patient would like to get better and follow up with Dr. Palacio for chemotherapy, but is currently her goal DVT prophylaxis; chemical History Interval history: Review of systems Constitutional: No fevers, no malaise, no joint pains CVS: No chest pain, no orthopnea, no dyspnea on exertion, no pedal edema GI: No abdominal pain, no diarrhea, no vomiting, no constipation Respiratory: No shortness of breath, no wheezing, no coughing Hospitalist Physical - Physical exam Narrative exam: General.: Appears well, no distress, nontoxic HEENT: Moist mucous membranes, extraocular muscles intact, no lymphadenopathy Neck: supple Cardiac: S1-S2 heard Lungs: clear to auscultation bilaterally Abdomen: soft , nontender, nondistended, bowel sounds positive Extremities: no edema clubbing or cyanosis Skin: no rash or lesions Neurologic: no gross focal deficits Psych: calm, and cooperative - Constitutional Vitals: Temp Pulse Resp BP Pulse Ox 97.8 F 121 H 18 127/78 97 05/02/18 07:47 05/02/18 07:47 05/02/18 07:47 05/02/18 07:47 05/02/18 07:47 General appearance: Present: no acute distress Results - Labs CBC & Chem 7: 05/03/18 04:52 05/08/18 08:41 Labs: Laboratory Last Values WBC 13.6 K/mm3 (4.5-11.0) H 05/02/18 06:36 RBC 3.46 M/mm3 (3.65-5.03) L 05/02/18 06:36 Hgb 9.5 gm/dl (10.1-14.3) L 05/02/18 06:36 Hct 29.7 % (30.3-42.9) L 05/02/18 06:36 MCV 86 fl (79-97) 05/02/18 06:36 MCH 28 pg (28-32) 05/02/18 06:36 MCHC 32 % (30-34) 05/02/18 06:36 RDW 19.0 % (13.2-15.2) H 05/02/18 06:36 Plt Count 282 K/mm3 (140-440) 05/02/18 06:36 Lymph % (Auto) [place] 05/02/18 06:36 [place] % (Auto) Cripple Cutter 05/02/18 06:36 Eos % (Auto) [place]utter 05/02/18 06:36 Baso % (Auto) [place] 05/02/18 06:36 Lymph # [place] 05/02/18 06:36 [place] # Cripple Cutter 05/02/18 06:36 Eos # [place] 05/02/18 06:36 Baso # [place] Cutter 05/02/18 06:36 Seg Neutrophils % [place]ripple Cutter 05/02/18 06:36 Seg Neutrophils # Cripple Cutter 05/02/18 06:36 PT 16.3 Sec. (12.2-14.9) H 04/28/18 04:16 INR 1.23 (0.87-1.13) H 04/28/18 04:16 Sodium 144 mmol/L (137-145) 05/02/18 06:36 Potassium 4.4 mmol/L (3.6-5.0) 05/02/18 06:36 Chloride 111.6 mmol/L (98-107) H 05/02/18 06:36 Carbon Dioxide 17 mmol/L (22-30) L 05/02/18 06:36 Anion Gap 20 mmol/L 05/02/18 06:36 BUN 94 mg/dL (7-17) H 05/02/18 06:36 Creatinine 3.7 mg/dL (0.7-1.2) H 05/02/18 06:36 Estimated GFR 15 ml/min 05/02/18 06:36 BUN/Creatinine Ratio 25 % 05/02/18 06:36 Glucose 129 mg/dL (65-100) H 05/02/18 06:36 Osmolality 324 Mosm/kg 04/28/18 14:47 Uric Acid 16.8 mg/dL (3.5-7.6) H 04/28/18 14:47 Calcium 8.6 mg/dL (8.4-10.2) 05/02/18 06:36 Magnesium 2.80 mg/dL (1.7-2.3) H 04/28/18 04:16 Total Bilirubin 0.30 mg/dL (0.1-1.2) 04/27/18 21:46 AST 22 units/L (5-40) 04/27/18 21:46 ALT 11 units/L (7-56) 04/27/18 21:46 Alkaline Phosphatase 92 units/L (35-129) 04/27/18 21:46 Total Creatine Kinase 38 units/L (30-135) 04/28/18 04:16 Total Protein 6.8 g/dL (6.3-8.2) 04/27/18 21:46 Albumin 3.0 g/dL (3.9-5) L 04/27/18 21:46 Albumin/Globulin Ratio 0.8 % 04/27/18 21:46 CA 125 Antigen 1208 U/mL (<35) H 04/30/18 04:33 Urine Color Yellow (Yellow) 04/28/18 Unknown Urine Turbidity Slightly-cloudy (Clear) 04/28/18 Unknown Urine pH 5.0 (5.0-7.0) 04/28/18 Unknown Ur Specific [place] 1.015 (1.003-1.030) 04/28/18 Unknown Urine Protein 30 mg/dl mg/dL (Negative) 04/28/18 Unknown Urine Glucose (UA) Neg mg/dL (Negative) 04/28/18 Unknown Urine Ketones Neg mg/dL (Negative) 04/28/18 Unknown Urine Blood Neg (Negative) 04/28/18 Unknown Urine Nitrite Neg (Negative) 04/28/18 Unknown Urine Bilirubin Neg (Negative) 04/28/18 Unknown Urine Urobilinogen < 2.0 mg/dL (<2.0) 04/28/18 Unknown Ur Leukocyte Esterase Tr (Negative) 04/28/18 Unknown Urine WBC (Auto) 7.0 /HPF (0.0-6.0) H 04/28/18 Unknown Urine RBC (Auto) 2.0 /HPF (0.0-6.0) 04/28/18 Unknown U Epithel Cells (Auto) 2.0 /HPF (0-13.0) 04/28/18 Unknown Urine Bacteria (Auto) 1+ /HPF (Negative) 04/28/18 Unknown Ur Transition Epith Cell 2 /HPF 04/28/18 Unknown Urine Creatinine 156.1 mg/dL (0.1-20.0) H 04/28/18 Unknown Urine Sodium 10 mmol/L 04/28/18 Unknown Urine Total Protein 55 mg/dL (5-11.8) H 04/28/18 Unknown
--- NOTE | 2018-05-02 09:19 | Progress Note ---
Subjective Principal diagnosis: ovarian ca Interval history: Patient was seen today for follow-up on multiple renal related issues Creatinine is a little better Vitals labs intake output medications were reviewed Social history: Reviewed Allergies: Reviewed Family history: Reviewed Physical examination HEENT: Oral mucosa moist no pallor or icterus Neck: Supple no JVD Chest: Clear to auscultation anteriorly CVS: Regular rate and rhythm S1 and S2 heard Abdomen: Soft nontender no suprapubic masses no organomegaly appreciable Abdominal distention with some fluid thrill Extremity: Dry skin less than 1+ peripheral edema Musculoskeletal: No joint effusion noted in knees and ankle Neurological: Alert awake Dermatology: No petechial rashes Psychiatry: No evidence of any agitation and aggression noted Assessment and plan Acute renal failure likely creatinine is currently better at 3.7 no emergent indication for renal replacement therapy Follow-up on serial labs likely etiology appears to be severe acute tubular necrosis. Ultrasonogram shows changes of increased echogenicity suggestive of chronic kidney disease Recurrent ovarian cancer CA-125 1208, ? Is patient a candidate for further chemotherapy or palliative care Patient I think will benefit by transferring to a hospital where her [employer] oncologist is available Metabolic acidosis: Change IV fluid Severe dehydration due to poor by mouth intake ongoing use of diuretic Will change IV fluids to Ringer's lactate and follow Likely etiology of renal failure appears to be due to acute tubular necrosis, severe volume depletion, rule out other causes Severe hyperuricemia likely due to dehydration hydrochlorothiazide therapy to follow Urinalysis showed only 30 mg of protein in the urine with 7 red blood cell patient's urine sodium was only 10 Anemia: Multifactorial patient does have history of ovarian cancer, She is currently being followed by oncology We'll continue to follow and make recommendation from renal standpoint Objective - Vital Signs Vital signs: Vital Signs - 12hr 05/01/18 05/01/18 05/02/18 22:00 23:00 02:13 Temperature 97.9 F Pulse Rate 89 122 H Pulse Rate [ 121 H From Monitor] Respiratory 20 18 Rate Blood Pressure 126/78 O2 Sat by Pulse 96 95 Oximetry 05/02/18 07:47 Temperature 97.8 F Pulse Rate 121 H Pulse Rate [ From Monitor] Respiratory 18 Rate Blood Pressure 127/78 O2 Sat by Pulse 97 Oximetry - Lab 05/02/18 06:36 05/02/18 06:36 Most recent lab results Calcium 8.6 mg/dL (8.4-10.2) 05/02/18 06:36 Magnesium 2.80 mg/dL (1.7-2.3) H 04/28/18 04:16 Urine Creatinine 156.1 mg/dL (0.1-20.0) H 04/28/18 Unknown Urine Sodium 10 mmol/L 04/28/18 Unknown Urine Total Protein 55 mg/dL (5-11.8) H 04/28/18 Unknown Medications & Allergies - Medications Allergies/Adverse Reactions: Allergies lisinopril Allergy (Verified 04/28/18 12:20) Swelling Home Medications: Home Medications Medication Instructions Recorded Confirmed Last Taken Type Cod Liver Oil 1 each PO DAILY 06/07/17 04/28/18 04/20/18 History Ergocalciferol(Vitamin D2)(Nf) 400 unit PO DAILY 06/07/17 04/28/18 04/26/18 10:00 History [Vitamin D (Nf)] One Daily Multivitamin Tablet 1 tab PO DAILY 06/07/17 04/28/18 04/26/18 21:00 History amLODIPine [Norvasc] 10 mg PO DAILY 06/07/17 04/28/18 04/26/18 21:00 History hydroCHLOROthiazide [HCTZ] 12.5 mg PO DAILY 06/07/17 04/28/18 04/26/18 10:00 History Apixaban [Eliquis] 5 mg PO DAILY 04/16/18 04/28/18 04/23/18 21:00 History Active Medications: Generic Name Dose Route Start Last Admin Trade Name Freq PRN Reason Stop Dose Admin Sodium Chloride 1,000 mls @ 75 mls/hr 05/01/18 23:00 05/01/18 23:57 Nacl 0.9% 1000 Ml IV 75 mls/hr DIRECT CATHI Administration Metoclopramide HCl 5 mg 04/28/18 12:43 05/01/18 18:57 Reglan IV 5 mg Q6H PRN Administration Nausea And Vomiting Morphine Sulfate 2 mg 04/28/18 12:21 04/29/18 19:42 Morphine IV 2 mg Q3H PRN Administration Pain, Moderate (4-6) Ondansetron HCl 4 mg 04/28/18 12:22 05/01/18 11:44 Zofran IV 4 mg Q8H PRN Administration N/V unrelieved by Sebastian Pantoprazole Sodium 40 mg 04/28/18 13:00 05/02/18 09:02 Protonix IV 40 mg QDAY CATHI Administration
[2018-05-02] MEDS: LACTATED RINGERS 1,000 ML IV SCH (10:36)
--- NOTE | 2018-05-02 11:20 | Vascular Lab Report ---
PROCEDURE: VL VENOUS DUPLEX LE RT TECHNIQUE: Ultrasound of the right leg venous system HISTORY: Right leg swelling, ? dvt COMPARISONS: None FINDINGS: Normal compressibility, vascular patency, and augmentation are present diffusely throughout the visua lized portion of the deep veins. No abnormal intraluminal echoes are visualized to suggest deep vein thrombus. IMPRESSION: No sonographic evidence of right leg DVT This document is electronically signed by Fan Houston MD., May 02 2018 11:17:47 AM ET
[2018-05-02] MEDS: ZOFRAN IV PRN (19:22)
[2018-05-03] MEDS: LACTATED RINGERS 1,000 ML IV SCH ×3 (01:50→23:10)
[2018-05-03 05:10] LABS: Eosinophils % (Auto) 0.1 % (0.0-4.3); Hematocrit 27.3 % (30.3-42.9); Lymphocytes # (Auto) 0.4 K/mm3 (1.2-5.4); Lymphocytes % (Auto) 3.7 % (13.4-35.0); Mean Corpuscular HGB Conc 33 % (30-34); Mean Corpuscular Volume 83 fl (79-97); Monocytes % (Auto) 8.3 % (0.0-7.3); Platelet Count 352 K/mm3 (140-440); Red Blood Count 3.28 M/mm3 (3.65-5.03); Red Cell Distribution Width 19.3 % (13.2-15.2)
[2018-05-03 05:33] LABS: Iron 21 ug/dL (37-170); Total Iron Binding Capacity 143 mcg/dL (250-450)
--- NOTE | 2018-05-03 07:28 | Hem/Onc Progress Note ---
Assessment and Plan 1. Metastatic ovarian cancer. 2. The patient was with Dr. Gill, had undergone hysterectomy. It appears the patient received 6 cycles of carboplatin and Taxol. She is not on any oral agent. She also received radiation to the abdomen and there is a plan to go to [facility] oncologist. She does not know the name of the oncologist. I asked her if this is [facility] or [facility], the patient was not sure. 3. History of deep venous thrombosis in the neck. The patient was on Eliquis. This has been held. 4. Bowel obstruction. Surgical team is following the patient. 5. The patient was n.p.o. Now, there is plan for liquid diet. She is having flatus. 6. Anemia. MCV is normal. This may be tumor related. 7. Renal impairment. Nephrology team is following the patient. 8. Hysterectomy in the past. 9. The radiologist mentioned lymph nodes in the abdomen. 10. CA-125. I discussed with her regarding oral agents. I will help her during an inpatient status and then she will see the [facility], with whom she was supposed to have the first visit this week. She will call them for an appointment. paracentesis planned 05/02 - s/p paracentesis on 05/01 rt leg edema - DVT study pt has OP follow up with new oncologist mild anemia - def Ix 05/03 - d/w dr wilks - surgeon - as pt vomiting - Patient Problems (1) 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 Current Visit: Yes Status: Acute Subjective Date of service: 05/03/18 Principal diagnosis: ovarian cancer Interval history: s/p paracentesis Objective - Constitutional Vitals: Last Vital Signs Temp 98.0 F 05/03/18 03:18 Pulse 117 H 05/03/18 04:12 Resp 18 05/03/18 03:18 BP 127/85 05/03/18 03:18 Pulse Ox 97 05/03/18 03:18 Pain Intensity (0-10): denies any pain General appearance: no acute distress Performance status: 3-limited selfcare - EENT Eyes: EOM intact ENT: clear oral mucosa Lymph node exam: negative cervical - Neck Neck: normal ROM - Respiratory Respiratory effort: Positive: normal Respiratory: bilateral: CTA - Cardiovascular Heart Sounds: Present: S1 & S2 Extremity abnormal: edema - Gastrointestinal General gastrointestinal: Present: soft, non-tender Rectal Exam: deferred - Genitourinary Female genitourinary: Present: deferred - Integumentary Integumentary: warm - Musculoskeletal Musculoskeletal: generalized weakness - Neurologic Neurologic: moves all extremities - Labs Lab Results: Laboratory Results - last 24 hr 05/03/18 05/03/18 05/03/18 04:52 04:52 04:52 WBC 12.1 H RBC 3.28 L Hgb 9.0 L Hct 27.3 L MCV 83 MCH 27 L MCHC 33 RDW 19.3 H Plt Count 352 Lymph % (Auto) 3.7 L [place] % (Auto) 8.3 H Eos % (Auto) 0.1 Baso % (Auto) 0.0 Lymph # 0.4 L [place] # 1.0 H Eos # 0.0 Baso # 0.0 Seg Neutrophils % 87.9 H Seg Neutrophils # 10.7 H Iron 21 L TIBC 143 L Ferritin 244.3 Vitamin B12 Folate 05/03/18 05/03/18 04:52 04:52 WBC RBC Hgb Hct MCV MCH MCHC RDW Plt Count Lymph % (Auto) [place] % (Auto) Eos % (Auto) Baso % (Auto) Lymph # [place] # Eos # Baso # Seg Neutrophils % Seg Neutrophils # Iron TIBC Ferritin Vitamin B12 1451 H Folate 18.07 Medications & Allergies - Medications Allergies/Adverse Reactions: Allergies lisinopril Allergy (Verified 04/28/18 12:20) Swelling Home Medications: Home Medications Medication Instructions Recorded Confirmed Last Taken Type Cod Liver Oil 1 each PO DAILY 06/07/17 04/28/18 04/20/18 History Ergocalciferol(Vitamin D2)(Nf) 400 unit PO DAILY 06/07/17 04/28/18 04/26/18 10:00 History [Vitamin D (Nf)] One Daily Multivitamin Tablet 1 tab PO DAILY 06/07/17 04/28/18 04/26/18 21:00 History amLODIPine [Norvasc] 10 mg PO DAILY 06/07/17 04/28/18 04/26/18 21:00 History hydroCHLOROthiazide [HCTZ] 12.5 mg PO DAILY 06/07/17 04/28/18 04/26/18 10:00 History Apixaban [Eliquis] 5 mg PO DAILY 04/16/18 04/28/18 04/23/18 21:00 History Active Medications: Generic Name Dose Route Start Last Admin Trade Name Freq PRN Reason Stop Dose Admin Lactated Ringer's 1,000 mls @ 100 mls/hr 05/02/18 11:00 05/03/18 01:50 Lactated Ringers IV 100 mls/hr DIRECT CATHI Administration Metoclopramide HCl 5 mg 04/28/18 12:43 05/01/18 18:57 Reglan IV 5 mg Q6H PRN Administration Nausea And Vomiting Morphine Sulfate 2 mg 04/28/18 12:21 04/29/18 19:42 Morphine IV 2 mg Q3H PRN Administration Pain, Moderate (4-6) Ondansetron HCl 4 mg 04/28/18 12:22 05/02/18 19:22 Zofran IV 4 mg Q8H PRN Administration N/V unrelieved by Sebastian Pantoprazole Sodium 40 mg 05/03/18 10:00 Protonix PO DAILY CATHI
--- NOTE | 2018-05-03 07:52 | Progress Note ---
Assessment and Plan Assessment and plan: 67-year-old woman with past medical history of stage IV, recurrence papillary serous endometrial carcinoma. She is status post hysterectomy, has received multiple rounds of chemotherapy and radiation therapy. She has just established with Dr. Palacio should be seen for ongoing chemotherapy. She presented with nausea vomiting abdominal tightness and weakness. The patient has received paracentesis, 3.5 L of fluid have been removed. -Diagnosis Small bowel obstruction Multiple intra-abdominal adhesions and seeding of malignancy in the abdomen Acute on chronic kidney disease, she suffered toxicity from chemotherapy to her kidneys Stage IV endometrial carcinoma Malignant ascites Plan Continue IV fluids, continue NG to nasal suction, advance diet when okayed by general surgery Nephrology appreciated, avoid nephrotoxins Oncology appreciated The patient would like to get better and follow up with Dr. Palacio for chemotherapy, but is currently her goal DVT prophylaxis; chemical History Interval history: Review of systems Constitutional: No fevers, no malaise, no joint pains CVS: No chest pain, no orthopnea, no dyspnea on exertion, no pedal edema GI: She complains of intermittent abdominal pain nausea and vomiting Respiratory: No shortness of breath, no wheezing, no coughing Hospitalist Physical - Physical exam Narrative exam: General.: Appears well, no distress, nontoxic HEENT: Moist mucous membranes, extraocular muscles intact, no lymphadenopathy Neck: supple Cardiac: S1-S2 heard Lungs: clear to auscultation bilaterally Abdomen: soft , nontender, nondistended, bowel sounds positive Extremities: no edema clubbing or cyanosis Skin: no rash or lesions Neurologic: no gross focal deficits Psych: calm, and cooperative - Constitutional Vitals: Temp Pulse Resp BP Pulse Ox 98.0 F 117 H 18 127/85 97 05/03/18 03:18 05/03/18 04:12 05/03/18 03:18 05/03/18 03:18 05/03/18 03:18 General appearance: Present: no acute distress Results - Labs CBC & Chem 7: 05/03/18 04:52 05/08/18 08:41 Labs: Laboratory Last Values WBC 12.1 K/mm3 (4.5-11.0) H 05/03/18 04:52 RBC 3.28 M/mm3 (3.65-5.03) L 05/03/18 04:52 Hgb 9.0 gm/dl (10.1-14.3) L 05/03/18 04:52 Hct 27.3 % (30.3-42.9) L 05/03/18 04:52 MCV 83 fl (79-97) 05/03/18 04:52 MCH 27 pg (28-32) L 05/03/18 04:52 MCHC 33 % (30-34) 05/03/18 04:52 RDW 19.3 % (13.2-15.2) H 05/03/18 04:52 Plt Count 352 K/mm3 (140-440) 05/03/18 04:52 Lymph % (Auto) 3.7 % (13.4-35.0) L 05/03/18 04:52 Sunflower % (Auto) 8.3 % (0.0-7.3) H 05/03/18 04:52 Eos % (Auto) 0.1 % (0.0-4.3) 05/03/18 04:52 Baso % (Auto) 0.0 % (0.0-1.8) 05/03/18 04:52 Lymph # 0.4 K/mm3 (1.2-5.4) L 05/03/18 04:52 Sunflower # 1.0 K/mm3 (0.0-0.8) H 05/03/18 04:52 Eos # 0.0 K/mm3 (0.0-0.4) 05/03/18 04:52 Baso # 0.0 K/mm3 (0.0-0.1) 05/03/18 04:52 Seg Neutrophils % 87.9 % (40.0-70.0) H 05/03/18 04:52 Seg Neutrophils # 10.7 K/mm3 (1.8-7.7) H 05/03/18 04:52 PT 16.3 Sec. (12.2-14.9) H 04/28/18 04:16 INR 1.23 (0.87-1.13) H 04/28/18 04:16 Sodium 144 mmol/L (137-145) 05/02/18 06:36 Potassium 4.4 mmol/L (3.6-5.0) 05/02/18 06:36 Chloride 111.6 mmol/L (98-107) H 05/02/18 06:36 Carbon Dioxide 17 mmol/L (22-30) L 05/02/18 06:36 Anion Gap 20 mmol/L 05/02/18 06:36 BUN 94 mg/dL (7-17) H 05/02/18 06:36 Creatinine 3.7 mg/dL (0.7-1.2) H 05/02/18 06:36 Estimated GFR 15 ml/min 05/02/18 06:36 BUN/Creatinine Ratio 25 % 05/02/18 06:36 Glucose 129 mg/dL (65-100) H 05/02/18 06:36 Osmolality 324 Mosm/kg 04/28/18 14:47 Uric Acid 16.8 mg/dL (3.5-7.6) H 04/28/18 14:47 Calcium 8.6 mg/dL (8.4-10.2) 05/02/18 06:36 Magnesium 2.80 mg/dL (1.7-2.3) H 04/28/18 04:16 Iron 21 ug/dL (37-170) L 05/03/18 04:52 TIBC 143 mcg/dL (250-450) L 05/03/18 04:52 Ferritin 244.3 ng/mL (13.0-400.0) 05/03/18 04:52 Total Bilirubin 0.30 mg/dL (0.1-1.2) 04/27/18 21:46 AST 22 units/L (5-40) 04/27/18 21:46 ALT 11 units/L (7-56) 04/27/18 21:46 Alkaline Phosphatase 92 units/L (35-129) 04/27/18 21:46 Total Creatine Kinase 38 units/L (30-135) 04/28/18 04:16 Total Protein 6.8 g/dL (6.3-8.2) 04/27/18 21:46 Albumin 3.0 g/dL (3.9-5) L 04/27/18 21:46 Albumin/Globulin Ratio 0.8 % 04/27/18 21:46 CA 125 Antigen 1208 U/mL (<35) H 04/30/18 04:33 Vitamin B12 1451 pg/mL (211-911) H 05/03/18 04:52 Folate 18.07 ng/mL (7.3-26.0) 05/03/18 04:52 Urine Color Yellow (Yellow) 04/28/18 Unknown Urine Turbidity Slightly-cloudy (Clear) 04/28/18 Unknown Urine pH 5.0 (5.0-7.0) 04/28/18 Unknown Ur Specific [place] 1.015 (1.003-1.030) 04/28/18 Unknown Urine Protein 30 mg/dl mg/dL (Negative) 04/28/18 Unknown Urine Glucose (UA) Neg mg/dL (Negative) 04/28/18 Unknown Urine Ketones Neg mg/dL (Negative) 04/28/18 Unknown Urine Blood Neg (Negative) 04/28/18 Unknown Urine Nitrite Neg (Negative) 04/28/18 Unknown Urine Bilirubin Neg (Negative) 04/28/18 Unknown Urine Urobilinogen < 2.0 mg/dL (<2.0) 04/28/18 Unknown Ur Leukocyte Esterase Tr (Negative) 04/28/18 Unknown Urine WBC (Auto) 7.0 /HPF (0.0-6.0) H 04/28/18 Unknown Urine RBC (Auto) 2.0 /HPF (0.0-6.0) 04/28/18 Unknown U Epithel Cells (Auto) 2.0 /HPF (0-13.0) 04/28/18 Unknown Urine Bacteria (Auto) 1+ /HPF (Negative) 04/28/18 Unknown Ur Transition Epith Cell 2 /HPF 04/28/18 Unknown Urine Creatinine 156.1 mg/dL (0.1-20.0) H 04/28/18 Unknown Urine Sodium 10 mmol/L 04/28/18 Unknown Urine Total Protein 55 mg/dL (5-11.8) H 04/28/18 Unknown
[2018-05-03] MEDS: REGLAN IV PRN (08:16)
[2018-05-03] MEDS: ZOFRAN IV PRN (08:46)
--- NOTE | 2018-05-03 08:54 | Progress Note ---
Subjective Principal diagnosis: ovarian ca Interval history: Patient was seen today for follow-up on multiple renal related issues Tolerating IV fluid Pending basic metabolic profile: Need daily labs Vitals labs intake output medications were reviewed Social history: Reviewed Allergies: Reviewed Family history: Reviewed Physical examination HEENT: Oral mucosa moist no pallor or icterus Neck: Supple no JVD Chest: Clear to auscultation anteriorly CVS: Regular rate and rhythm S1 and S2 heard Abdomen: Soft nontender no suprapubic masses no organomegaly appreciable Abdominal distention with some fluid thrill Extremity: Dry skin less than 1+ peripheral edema Musculoskeletal: No joint effusion noted in knees and ankle Neurological: Alert awake Dermatology: No petechial rashes Psychiatry: No evidence of any agitation and aggression noted Assessment and plan Acute renal failure likely creatinine is currently better at 3.7 no emergent indication for renal replacement therapy Continue to monitor renal function likely etiology appears to be severe acute tubular necrosis, possible drug-induced interstitial nephritis, patient was severely volume depleted with poor by mouth intake with ongoing use of hydrochlorothiazide Patiently continue to monitor renal function continue with hydration serial labs Recurrent ovarian cancer significantly elevated CEA 125 hematology oncology following Ultrasonogram shows changes of increased echogenicity suggestive of chronic kidney disease Metabolic acidosis currently doing better Severe hyperuricemia likely due to dehydration hydrochlorothiazide therapy to follow Urinalysis showed only 30 mg of protein in the urine with 7 red blood cell patient's urine sodium was only 10 Anemia: Multifactorial patient does have history of ovarian cancer, She is currently being followed by oncology We'll continue to follow and make recommendation from renal standpoint Objective - Vital Signs Vital signs: Vital Signs - 12hr 05/02/18 05/03/18 05/03/18 22:00 03:18 04:12 Temperature 98.0 F Pulse Rate 119 H 117 H Pulse Rate [ 117 H From Monitor] Respiratory 18 18 Rate Blood Pressure 127/85 O2 Sat by Pulse 94 97 Oximetry 05/03/18 08:07 Temperature 97.4 F L Pulse Rate 121 H Pulse Rate [ From Monitor] Respiratory 20 Rate Blood Pressure 130/77 O2 Sat by Pulse 94 Oximetry - Lab 05/03/18 04:52 05/02/18 06:36 Most recent lab results Calcium 8.6 mg/dL (8.4-10.2) 05/02/18 06:36 Magnesium 2.80 mg/dL (1.7-2.3) H 04/28/18 04:16 Urine Creatinine 156.1 mg/dL (0.1-20.0) H 04/28/18 Unknown Urine Sodium 10 mmol/L 04/28/18 Unknown Urine Total Protein 55 mg/dL (5-11.8) H 04/28/18 Unknown Medications & Allergies - Medications Allergies/Adverse Reactions: Allergies lisinopril Allergy (Verified 04/28/18 12:20) Swelling Home Medications: Home Medications Medication Instructions Recorded Confirmed Last Taken Type Cod Liver Oil 1 each PO DAILY 06/07/17 04/28/18 04/20/18 History Ergocalciferol(Vitamin D2)(Nf) 400 unit PO DAILY 06/07/17 04/28/18 04/26/18 10:00 History [Vitamin D (Nf)] One Daily Multivitamin Tablet 1 tab PO DAILY 06/07/17 04/28/18 04/26/18 21:00 History amLODIPine [Norvasc] 10 mg PO DAILY 06/07/17 04/28/18 04/26/18 21:00 History hydroCHLOROthiazide [HCTZ] 12.5 mg PO DAILY 06/07/17 04/28/18 04/26/18 10:00 History Apixaban [Eliquis] 5 mg PO DAILY 04/16/18 04/28/18 04/23/18 21:00 History Active Medications: Generic Name Dose Route Start Last Admin Trade Name Freq PRN Reason Stop Dose Admin Lactated Ringer's 1,000 mls @ 100 mls/hr 05/02/18 11:00 05/03/18 01:50 Lactated Ringers IV 100 mls/hr DIRECT CATHI Administration Metoclopramide HCl 5 mg 04/28/18 12:43 05/03/18 08:16 Reglan IV 5 mg Q6H PRN Administration Nausea And Vomiting Morphine Sulfate 2 mg 04/28/18 12:21 04/29/18 19:42 Morphine IV 2 mg Q3H PRN Administration Pain, Moderate (4-6) Ondansetron HCl 4 mg 04/28/18 12:22 05/03/18 08:46 Zofran IV 4 mg Q8H PRN Administration N/V unrelieved by Reglan Pantoprazole Sodium 40 mg 05/03/18 10:00 Protonix PO DAILY CATHI
[2018-05-03] MEDS: PROTONIX PO SCH (09:01)
--- NOTE | 2018-05-03 09:46 | XRay Report ---
ABDOMINAL SERIES: History: Nausea and vomiting. AP view of the chest demonstrates borderline to mild cardiomegaly and medium left pleural effusion. Supine and upright views of the abdomen demonstrate a few mildly dilated loops of small bowel in the epigastric region. There is trace gas in the colon and rectum. No evidence for free air. IMPRESSION: Borderline heart size and left pleural effusion. Slightly dilated loops of small bowel in the epigastric region which could represent a low-grade partial obstruction. These correlate with the patient's clinical presentation.
[2018-05-03] MEDS ORDERED: CHLORASEPTIC MM PRN (14:20)
--- NOTE | 2018-05-03 14:38 | Progress Note ---
Assessment and Plan 67 yo F with 1. pSBO likely secondary to metastatic ovarian cancer and adhesions 2. metastatic ovarian cancer 3. ascites s/p paracentesis 4. TIARRA secondary to volume depletion Ct Scan A/P compared to Ct scan A/P from Mar 2018. Bowel loop appearance is similar. Ascites has reaccumulated. Radiology report notes concerns for omental caking and peritoneal studding. Obstruction series 05/03: pSBO Plan: 1. NPO 2. IVF 3. 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 oncology and nephro on board 6. prn pain and nausea control 7. DVT ppx The pSBO is likely secondary to abdominal metastasis. I explained to the patient that the first step will be placing NGT and treating her conservatively. Surgery would be a very aggressive last resort as she likely has metastatic implants involving the bowel, omentum, and other intraabdominal organs. I do not feel that surgery will be a good option. The patient is asking for transfer to [facility]. Dr. Gordon contacting patient's content administrator onc Dr. Gill to discuss a plan. Thank you, please call with questions. Subjective Date of service: 05/03/18 Narrative: Pt seen and examined. She states that over the last 1-2 days she has started to feel badly. She is constantly nauseated and had one episode of vomiting yesterday. She is burping a lot. She has had flatus and 3 BMs today. Objective Vital Signs - 12hr 05/03/18 05/03/18 05/03/18 03:18 04:12 08:07 Temperature 98.0 F 97.4 F L Pulse Rate 119 H 117 H 121 H Pulse Rate [ From Monitor] Respiratory 18 20 Rate Blood Pressure 127/85 130/77 O2 Sat by Pulse 97 94 Oximetry 05/03/18 05/03/18 09:02 10:00 Temperature Pulse Rate 122 H Pulse Rate [ 122 H From Monitor] Respiratory 20 Rate Blood Pressure O2 Sat by Pulse 94 Oximetry - General physical appearance Narrative Exam: Gen: AAOx3. NAD CV: s1, S2+ resp; even and unlabored Abd: soft but distended, NT. Tympanitic Ext; no c/c/e - Labs 05/03/18 04:52 05/02/18 06:36
[2018-05-04] MEDS: REGLAN IV PRN (06:26)
--- NOTE | 2018-05-04 07:39 | Hem/Onc Progress Note ---
Assessment and Plan 1. Metastatic ovarian cancer. 2. The patient was with Dr. Gill, had undergone hysterectomy. It appears the patient received 6 cycles of carboplatin and Taxol. She is not on any oral agent. She also received radiation to the abdomen and there is a plan to go to [facility] oncologist. She does not know the name of the oncologist. I asked her if this is [facility] or [facility], the patient was not sure. 3. History of deep venous thrombosis in the neck. The patient was on Eliquis. This has been held. 4. Bowel obstruction. Surgical team is following the patient. 5. The patient was n.p.o. Now, there is plan for liquid diet. She is having flatus. 6. Anemia. MCV is normal. This may be tumor related. 7. Renal impairment. Nephrology team is following the patient. 8. Hysterectomy in the past. 9. The radiologist mentioned lymph nodes in the abdomen. 10. CA-125. I discussed with her regarding oral agents. I will help her during an inpatient status and then she will see the [facility], with whom she was supposed to have the first visit this week. She will call them for an appointment. paracentesis planned 05/02 - s/p paracentesis on 05/01 rt leg edema - DVT study pt has OP follow up with new oncologist mild anemia - def Ix 05/03 - d/w dr wilks - surgeon - as pt vomiting 05/04 - CA 125 high bowel obstruction - tumor vs adhesion related - pt on NGT suction - d/w RN - Patient Problems (1) 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 Current Visit: Yes Status: Acute Subjective Date of service: 05/04/18 Principal diagnosis: ovarian ca Interval history: SBO - NGT Objective - Constitutional Vitals: Last Vital Signs Temp 97.7 F 05/04/18 02:52 Pulse 118 H 05/04/18 02:52 Resp 18 05/04/18 02:52 BP 132/76 05/04/18 02:52 Pulse Ox 84 05/04/18 02:52 Pain Intensity (0-10): 1/10 (abdo discomfort) General appearance: no acute distress Performance status: 3-limited selfcare - EENT Eyes: EOM intact ENT: clear oral mucosa Lymph node exam: negative cervical - Neck Neck: normal ROM - Respiratory Respiratory effort: Positive: normal Respiratory: bilateral: CTA - Cardiovascular Heart Sounds: Present: S1 & S2 Extremity abnormal: edema - Gastrointestinal General gastrointestinal: Present: soft, distended Rectal Exam: deferred - Genitourinary Female genitourinary: Present: deferred - Integumentary Integumentary: warm - Musculoskeletal Musculoskeletal: strength equal bilaterally - Neurologic Neurologic: moves all extremities - Labs Lab Results: Laboratory Results - last 24 hr 04/28/18 14:47 Immunofix Electrophor see below Medications & Allergies - Medications Allergies/Adverse Reactions: Allergies lisinopril Allergy (Verified 04/28/18 12:20) Swelling Home Medications: Home Medications Medication Instructions Recorded Confirmed Last Taken Type Cod Liver Oil 1 each PO DAILY 06/07/17 04/28/18 04/20/18 History Ergocalciferol(Vitamin D2)(Nf) 400 unit PO DAILY 06/07/17 04/28/18 04/26/18 10:00 History [Vitamin D (Nf)] One Daily Multivitamin Tablet 1 tab PO DAILY 06/07/17 04/28/18 04/26/18 21:00 History amLODIPine [Norvasc] 10 mg PO DAILY 06/07/17 04/28/18 04/26/18 21:00 History hydroCHLOROthiazide [HCTZ] 12.5 mg PO DAILY 06/07/17 04/28/18 04/26/18 10:00 History Apixaban [Eliquis] 5 mg PO DAILY 04/16/18 04/28/18 04/23/18 21:00 History Active Medications: Generic Name Dose Route Start Last Admin Trade Name Freq PRN Reason Stop Dose Admin Lactated Ringer's 1,000 mls @ 100 mls/hr 05/02/18 11:00 05/03/18 23:10 Lactated Ringers IV 100 mls/hr DIRECT CATHI Administration Metoclopramide HCl 5 mg 04/28/18 12:43 05/04/18 06:26 Reglan IV 5 mg Q6H PRN Administration Nausea And Vomiting Morphine Sulfate 2 mg 04/28/18 12:21 04/29/18 19:42 Morphine IV 2 mg Q3H PRN Administration Pain, Moderate (4-6) Ondansetron HCl 4 mg 04/28/18 12:22 05/03/18 08:46 Zofran IV 4 mg Q8H PRN Administration N/V unrelieved by Sebastian Pantoprazole Sodium 40 mg 05/03/18 10:00 05/03/18 09:01 Protonix PO Not Given DAILY CATHI Phenol 1 spray 05/03/18 14:20 Chloraseptic MM PRN PRN Sore Throat
[2018-05-04] MEDS: PROTONIX PO SCH (09:24)
[2018-05-04] MEDS: LACTATED RINGERS 1,000 ML IV SCH (09:33)
--- NOTE | 2018-05-04 11:59 | Progress Note ---
Assessment and Plan 67 yo F with 1. 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 metastatic papillary endometrial endometrial cancer 3. ascites s/p paracentesis 4. TIARRA secondary to volume depletion Ct Scan A/P compared to Ct scan A/P from Mar 2018. Bowel loop appearance is similar. Ascites has reaccumulated. Radiology report notes concerns for omental caking and peritoneal studding. Obstruction series 05/03: pSBO Plan: 1. NPO 2. IVF 3. 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 oncology and nephro on board 6. prn pain and nausea control 7. DVT ppx 8. await bowel function 9. BMP daily - replace lytes as needed Additional patient history obtained from Dr. Gill by Dr. Gordon. Patient has stage 4 papillary endometrial endometrial cancer for which she underwent KATHRYN-BSO after which she underwent chemo and radiation. The cancer recurred with intraperitoneal seeding and therefore patient referred to Dr. Palacio at [facility] for further treatment. Patient has not seen Dr. Palacio yet. Per Dr. Gill, patient is no longer a surgical candidate because she already underwent KATHRYN-BSO. Plan d/w nursing, patient, and Dr. Gordon. Thank you, please call with questions. Subjective Date of service: 05/04/18 Narrative: Pt seen and examined. States she feels better. No flatus or BM. NGT came out overnight and patient was found to have vomited per nursing notes. The NGT was reinserted and once again came out this am when respiratory therapy was moving her out of bed to chair. No f/c. Objective Vital Signs - 12hr 05/04/18 05/04/18 05/04/18 02:52 08:00 08:06 Temperature 97.7 F 97.9 F Pulse Rate 118 H 119 H 117 H Pulse Rate [ From Monitor] Respiratory 18 20 Rate Blood Pressure 132/76 139/85 O2 Sat by Pulse 84 97 Oximetry 05/04/18 05/04/18 08:18 10:00 Temperature Pulse Rate 118 H Pulse Rate [ 118 H From Monitor] Respiratory 20 Rate Blood Pressure O2 Sat by Pulse 97 Oximetry - General physical appearance Narrative Exam: Gen: AAOx3. NAD CV: s1, s2+ Resp: even and unlabored Abd: soft, distended, NT. incisional hernia soft Ext: no c/c/e - Labs 05/03/18 04:52 05/02/18 06:36
[2018-05-04 15:00] LABS: Calcium 8.6 mg/dL (8.4-10.2)
--- NOTE | 2018-05-04 18:47 | Progress Note ---
Assessment and Plan Impression: * TIARRA * volume depletion * metabolic acidosis * hyperkalemia * ovarian cancer * anemia * uti Plan: * bun/cr stable today * iv bicarb and strict i/os * daily lytes * avoid nephrotoxins * no emergent indication for cad developer today Subjective Date of service: 05/04/18 Principal diagnosis: ovarian ca Interval history: resting in bed today Objective - Exam Narrative Exam: HEENT: Oral mucosa moist no pallor or icterus Neck: Supple no JVD Chest: Clear to auscultation anteriorly CVS: Regular rate and rhythm S1 and S2 heard Abdomen: Soft nontender no suprapubic masses no organomegaly appreciable Abdominal distention with some fluid thrill Extremity: Dry skin less than 1+ peripheral edema Musculoskeletal: No joint effusion noted in knees and ankle Neurological: Alert awake Dermatology: No petechial rashes Psychiatry: No evidence of any agitation and aggression noted - Vital Signs Vital signs: Vital Signs - 12hr 05/04/18 05/04/18 05/04/18 08:00 08:06 08:18 Temperature 97.9 F Pulse Rate 119 H 117 H 118 H Pulse Rate [ From Monitor] Respiratory 20 Rate Blood Pressure 139/85 O2 Sat by Pulse 97 Oximetry 05/04/18 05/04/18 10:00 12:53 Temperature 98.0 F Pulse Rate 121 H Pulse Rate [ 118 H From Monitor] Respiratory 20 20 Rate Blood Pressure 127/74 O2 Sat by Pulse 97 99 Oximetry - Lab 05/03/18 04:52 05/04/18 14:10 Most recent lab results Calcium 8.6 mg/dL (8.4-10.2) 05/04/18 14:10 Magnesium 2.80 mg/dL (1.7-2.3) H 04/28/18 04:16 Urine Creatinine 156.1 mg/dL (0.1-20.0) H 04/28/18 Unknown Urine Sodium 10 mmol/L 04/28/18 Unknown Urine Total Protein 55 mg/dL (5-11.8) H 04/28/18 Unknown Medications & Allergies - Medications Allergies/Adverse Reactions: Allergies lisinopril Allergy (Verified 04/28/18 12:20) Swelling Home Medications: Home Medications Medication Instructions Recorded Confirmed Last Taken Type Cod Liver Oil 1 each PO DAILY 06/07/17 04/28/18 04/20/18 History Ergocalciferol(Vitamin D2)(Nf) 400 unit PO DAILY 06/07/17 04/28/18 04/26/18 10:00 History [Vitamin D (Nf)] One Daily Multivitamin Tablet 1 tab PO DAILY 06/07/17 04/28/18 04/26/18 21:00 History amLODIPine [Norvasc] 10 mg PO DAILY 06/07/17 04/28/18 04/26/18 21:00 History hydroCHLOROthiazide [HCTZ] 12.5 mg PO DAILY 06/07/17 04/28/18 04/26/18 10:00 History Apixaban [Eliquis] 5 mg PO DAILY 04/16/18 04/28/18 04/23/18 21:00 History Active Medications: Generic Name Dose Route Start Last Admin Trade Name Freq PRN Reason Stop Dose Admin Lactated Ringer's 1,000 mls @ 100 mls/hr 05/02/18 11:00 05/04/18 09:33 Lactated Ringers IV 100 mls/hr DIRECT CATHI Administration Metoclopramide HCl 5 mg 04/28/18 12:43 05/04/18 06:26 Reglan IV 5 mg Q6H PRN Administration Nausea And Vomiting Morphine Sulfate 2 mg 04/28/18 12:21 04/29/18 19:42 Morphine IV 2 mg Q3H PRN Administration Pain, Moderate (4-6) Ondansetron HCl 4 mg 04/28/18 12:22 05/03/18 08:46 Zofran IV 4 mg Q8H PRN Administration N/V unrelieved by Sebastian Pantoprazole Sodium 40 mg 05/03/18 10:00 05/04/18 09:24 Protonix PO Not Given DAILY CATHI Phenol 1 spray 05/03/18 14:20 Chloraseptic MM PRN PRN Sore Throat
[2018-05-04] MEDS: SODIUM BICARBONATE 150 MEQ in D5W 1,000 ML IV SCH (20:13)
--- NOTE | 2018-05-05 09:16 | Progress Note ---
Assessment and Plan Impression: * TIARRA * volume depletion * metabolic acidosis * hyperkalemia * ovarian cancer * anemia * uti Plan: * bun/cr stable today * iv bicarb and strict i/os * daily lytes * avoid nephrotoxins * follow up crcl * no emergent indication for hospital education coordinator today Subjective Date of service: 05/05/18 Principal diagnosis: ovarian ca Interval history: resting in bed today Objective - Exam Narrative Exam: HEENT: Oral mucosa moist no pallor or icterus Neck: Supple no JVD Chest: Clear to auscultation anteriorly CVS: Regular rate and rhythm S1 and S2 heard Abdomen: Soft nontender no suprapubic masses no organomegaly appreciable Abdominal distention with some fluid thrill Extremity: Dry skin less than 1+ peripheral edema Musculoskeletal: No joint effusion noted in knees and ankle Neurological: Alert awake Dermatology: No petechial rashes Psychiatry: No evidence of any agitation and aggression noted - Vital Signs Vital signs: Vital Signs - 12hr 05/04/18 05/05/18 05/05/18 22:00 02:35 07:29 Temperature 98.3 F 97.7 F Pulse Rate 114 H 121 H Pulse Rate [ 104 H From Monitor] Respiratory 18 18 22 Rate Respiratory 18 Rate [Abdomen] Blood Pressure 132/79 133/87 O2 Sat by Pulse 94 100 95 Oximetry 05/05/18 08:31 Temperature Pulse Rate 72 Pulse Rate [ From Monitor] Respiratory Rate Respiratory Rate [Abdomen] Blood Pressure O2 Sat by Pulse Oximetry - Lab 05/03/18 04:52 05/04/18 14:10 Most recent lab results Calcium 8.6 mg/dL (8.4-10.2) 05/04/18 14:10 Magnesium 2.80 mg/dL (1.7-2.3) H 04/28/18 04:16 Urine Creatinine 156.1 mg/dL (0.1-20.0) H 04/28/18 Unknown Urine Sodium 10 mmol/L 04/28/18 Unknown Urine Total Protein 55 mg/dL (5-11.8) H 04/28/18 Unknown Medications & Allergies - Medications Allergies/Adverse Reactions: Allergies lisinopril Allergy (Verified 04/28/18 12:20) Swelling Home Medications: Home Medications Medication Instructions Recorded Confirmed Last Taken Type Cod Liver Oil 1 each PO DAILY 04/18/18 03/09/19 03/01/19 History Ergocalciferol(Vitamin D2)(Nf) 400 unit PO DAILY 06/07/17 04/28/18 04/26/18 10:00 History [Vitamin D (Nf)] One Daily Multivitamin Tablet 1 tab PO DAILY 06/07/17 04/28/18 04/26/18 21:00 History amLODIPine [Norvasc] 10 mg PO DAILY 06/07/17 04/28/18 04/26/18 21:00 History hydroCHLOROthiazide [HCTZ] 12.5 mg PO DAILY 06/07/17 04/28/18 04/26/18 10:00 History Apixaban [Eliquis] 5 mg PO DAILY 04/16/18 04/28/18 04/23/18 21:00 History Active Medications: Generic Name Dose Route Start Last Admin Trade Name Freq PRN Reason Stop Dose Admin Sodium Bicarbonate 150 meq/ 1,150 mls @ 100 mls/hr 05/04/18 19:00 05/04/18 20:13 Dextrose IV 100 mls/hr DIRECT CATHI Administration Metoclopramide HCl 5 mg 04/28/18 12:43 05/04/18 06:26 Reglan IV 5 mg Q6H PRN Administration Nausea And Vomiting Morphine Sulfate 2 mg 04/28/18 12:21 04/29/18 19:42 Morphine IV 2 mg Q3H PRN Administration Pain, Moderate (4-6) Ondansetron HCl 4 mg 04/28/18 12:22 05/03/18 08:46 Zofran IV 4 mg Q8H PRN Administration N/V unrelieved by Sebastian Pantoprazole Sodium 40 mg 05/03/18 10:00 05/04/18 09:24 Protonix PO Not Given DAILY CATHI Phenol 1 spray 05/03/18 14:20 Chloraseptic MM PRN PRN Sore Throat
[2018-05-05] MEDS: PROTONIX PO SCH (10:03)
[2018-05-05] MEDS: SODIUM BICARBONATE 150 MEQ in D5W 1,000 ML IV SCH (10:04)
[2018-05-05] MEDS ORDERED: CARDIZEM IV PRN (10:37)
--- NOTE | 2018-05-05 10:48 | Progress Note ---
Assessment and Plan - Patient Problems (1) Small bowel obstruction Current Visit: Yes Status: Acute Plan to address problem: Based on report, patient appears to have tolerated sips of clears. She may be advanced to a clear liquid diet. We will slowly advance her diet as tolerated. If she becomes symptomatic with nausea or vomiting, NG tube should be replaced. Please call with questions. Time=10min Subjective Date of service: 05/05/18 Patient Reports: Positive: tolerating liquids well, other (in afib this AM. Team working on transfer to cardiac floor). Negative: nausea, vomiting Objective Vital Signs - 12hr 05/05/18 05/05/18 05/05/18 02:35 07:29 08:31 Temperature 98.3 F 97.7 F Pulse Rate 114 H 121 H 72 Respiratory 18 22 Rate Blood Pressure 132/79 133/87 O2 Sat by Pulse 100 95 Oximetry - General physical appearance other (mild distress noted) - Respiratory normal expansion, normal respiratory effort - Abdomen soft, not tender, not guarding, not rigid - Labs 05/03/18 04:52 05/04/18 14:10 Diabetes panel 05/04/18 Range/Units 14:10 Sodium 144 (137-145) mmol/L Potassium 5.0 (3.6-5.0) mmol/L Chloride 106.2 (98-107) mmol/L Carbon Dioxide 18 L (22-30) mmol/L BUN 94 H (7-17) mg/dL Creatinine 3.5 H (0.7-1.2) mg/dL Glucose 110 H (65-100) mg/dL Calcium 8.6 (8.4-10.2) mg/dL Calcium panel 05/04/18 Range/Units 14:10 Calcium 8.6 (8.4-10.2) mg/dL Pituitary panel 05/04/18 Range/Units 14:10 Sodium 144 (137-145) mmol/L Potassium 5.0 (3.6-5.0) mmol/L Chloride 106.2 (98-107) mmol/L Carbon Dioxide 18 L (22-30) mmol/L BUN 94 H (7-17) mg/dL Creatinine 3.5 H (0.7-1.2) mg/dL Glucose 110 H (65-100) mg/dL Calcium 8.6 (8.4-10.2) mg/dL Adrenal panel 05/04/18 Range/Units 14:10 Sodium 144 (137-145) mmol/L Potassium 5.0 (3.6-5.0) mmol/L Chloride 106.2 (98-107) mmol/L Carbon Dioxide 18 L (22-30) mmol/L BUN 94 H (7-17) mg/dL Creatinine 3.5 H (0.7-1.2) mg/dL Glucose 110 H (65-100) mg/dL Calcium 8.6 (8.4-10.2) mg/dL
[2018-05-05] MEDS: LOPRESSOR PO SCH ×2 (10:56→21:37)
[2018-05-05] MEDS: LOPRESSOR IV PRN ×2 (10:59→21:37)
--- NOTE | 2018-05-05 12:48 | Progress Note ---
Assessment and Plan Assessment and plan: 67-year-old woman with past medical history of stage IV, recurrence papillary serous endometrial carcinoma. She is status post hysterectomy, has received multiple rounds of chemotherapy and radiation therapy. She has just established with Dr. Palacio should be seen for ongoing chemotherapy. She presented with nausea vomiting abdominal tightness and weakness. The patient has received paracentesis, 3.5 L of fluid have been removed. -Diagnosis Small bowel obstruction Multiple intra-abdominal adhesions and seeding of malignancy in the abdomen Acute on chronic kidney disease, she suffered toxicity from chemotherapy to her kidneys Stage IV endometrial carcinoma Malignant ascites Atrial fibrillation with RVR Plan Continue IV fluids, continue NG to nasal suction, advance diet when okayed by general surgery Nephrology appreciated, avoid nephrotoxins Oncology appreciated The patient would like to get better and follow up with Dr. Palacio for chemoth cornelia, but is currently her goal DVT prophylaxis; chemical History Interval history: Review of systems Constitutional: No fevers, no malaise, no joint pains CVS: No chest pain, no orthopnea, no dyspnea on exertion, no pedal edema GI: She complains of intermittent abdominal pain nausea and vomiting Respiratory: No shortness of breath, no wheezing, no coughing Hospitalist Physical - Physical exam Narrative exam: General.: Appears well, no distress, nontoxic HEENT: Moist mucous membranes, extraocular muscles intact, no lymphadenopathy Neck: supple Cardiac: S1-S2 heard Lungs: clear to auscultation bilaterally Abdomen: soft , nontender, nondistended, bowel sounds positive Extremities: no edema clubbing or cyanosis Skin: no rash or lesions Neurologic: no gross focal deficits Psych: calm, and cooperative - Constitutional Vitals: Temp Pulse Resp BP Pulse Ox 97.7 F 173 H 22 133/87 95 05/05/18 07:29 05/05/18 10:59 05/05/18 07:29 05/05/18 07:29 05/05/18 07:29 General appearance: Present: no acute distress Results - Labs CBC & Chem 7: 05/03/18 04:52 05/08/18 08:41 Labs: Laboratory Last Values WBC 12.1 K/mm3 (4.5-11.0) H 05/03/18 04:52 RBC 3.28 M/mm3 (3.65-5.03) L 05/03/18 04:52 Hgb 9.0 gm/dl (10.1-14.3) L 05/03/18 04:52 Hct 27.3 % (30.3-42.9) L 05/03/18 04:52 MCV 83 fl (79-97) 05/03/18 04:52 MCH 27 pg (28-32) L 05/03/18 04:52 MCHC 33 % (30-34) 05/03/18 04:52 RDW 19.3 % (13.2-15.2) H 05/03/18 04:52 Plt Count 352 K/mm3 (140-440) 05/03/18 04:52 Lymph % (Auto) 3.7 % (13.4-35.0) L 05/03/18 04:52 [place] % (Auto) 8.3 % (0.0-7.3) H 05/03/18 04:52 Eos % (Auto) 0.1 % (0.0-4.3) 05/03/18 04:52 Baso % (Auto) 0.0 % (0.0-1.8) 05/03/18 04:52 Lymph # 0.4 K/mm3 (1.2-5.4) L 05/03/18 04:52 [place] # 1.0 K/mm3 (0.0-0.8) H 05/03/18 04:52 Eos # 0.0 K/mm3 (0.0-0.4) 05/03/18 04:52 Baso # 0.0 K/mm3 (0.0-0.1) 05/03/18 04:52 Seg Neutrophils % 87.9 % (40.0-70.0) H 05/03/18 04:52 Seg Neutrophils # 10.7 K/mm3 (1.8-7.7) H 05/03/18 04:52 PT 16.3 Sec. (12.2-14.9) H 04/28/18 04:16 INR 1.23 (0.87-1.13) H 04/28/18 04:16 Sodium 144 mmol/L (137-145) 05/04/18 14:10 Potassium 5.0 mmol/L (3.6-5.0) 05/04/18 14:10 Chloride 106.2 mmol/L (98-107) 05/04/18 14:10 Carbon Dioxide 18 mmol/L (22-30) L 05/04/18 14:10 Anion Gap 25 mmol/L 05/04/18 14:10 BUN 94 mg/dL (7-17) H 05/04/18 14:10 Creatinine 3.5 mg/dL (0.7-1.2) H 05/04/18 14:10 Estimated GFR 16 ml/min 05/04/18 14:10 BUN/Creatinine Ratio 27 % 05/04/18 14:10 Glucose 110 mg/dL (65-100) H 05/04/18 14:10 Osmolality 324 Mosm/kg 04/28/18 14:47 Uric Acid 16.8 mg/dL (3.5-7.6) H 04/28/18 14:47 Calcium 8.6 mg/dL (8.4-10.2) 05/04/18 14:10 Magnesium 2.80 mg/dL (1.7-2.3) H 04/28/18 04:16 Iron 21 ug/dL (37-170) L 05/03/18 04:52 TIBC 143 mcg/dL (250-450) L 05/03/18 04:52 Ferritin 244.3 ng/mL (13.0-400.0) 05/03/18 04:52 Total Bilirubin 0.30 mg/dL (0.1-1.2) 04/27/18 21:46 AST 22 units/L (5-40) 04/27/18 21:46 ALT 11 units/L (7-56) 04/27/18 21:46 Alkaline Phosphatase 92 units/L (35-129) 04/27/18 21:46 Total Creatine Kinase 38 units/L (30-135) 04/28/18 04:16 Total Protein 6.8 g/dL (6.3-8.2) 04/27/18 21:46 Albumin 3.0 g/dL (3.9-5) L 04/27/18 21:46 Albumin/Globulin Ratio 0.8 % 04/27/18 21:46 CA 125 Antigen 1208 U/mL (<35) H 04/30/18 04:33 Vitamin B12 1451 pg/mL (211-911) H 05/03/18 04:52 Folate 18.07 ng/mL (7.3-26.0) 05/03/18 04:52 Urine Color Yellow (Yellow) 04/28/18 Unknown Urine Turbidity Slightly-cloudy (Clear) 04/28/18 Unknown Urine pH 5.0 (5.0-7.0) 04/28/18 Unknown Ur Specific [place] 1.015 (1.003-1.030) 04/28/18 Unknown Urine Protein 30 mg/dl mg/dL (Negative) 04/28/18 Unknown Urine Glucose (UA) Neg mg/dL (Negative) 04/28/18 Unknown Urine Ketones Neg mg/dL (Negative) 04/28/18 Unknown Urine Blood Neg (Negative) 04/28/18 Unknown Urine Nitrite Neg (Negative) 04/28/18 Unknown Urine Bilirubin Neg (Negative) 04/28/18 Unknown Urine Urobilinogen < 2.0 mg/dL (<2.0) 04/28/18 Unknown Ur Leukocyte Esterase Tr (Negative) 04/28/18 Unknown Urine WBC (Auto) 7.0 /HPF (0.0-6.0) H 04/28/18 Unknown Urine RBC (Auto) 2.0 /HPF (0.0-6.0) 04/28/18 Unknown U Epithel Cells (Auto) 2.0 /HPF (0-13.0) 04/28/18 Unknown Urine Bacteria (Auto) 1+ /HPF (Negative) 04/28/18 Unknown Ur Transition Epith Cell 2 /HPF 04/28/18 Unknown Urine Creatinine 156.1 mg/dL (0.1-20.0) H 04/28/18 Unknown Urine Sodium 10 mmol/L 04/28/18 Unknown Urine Total Protein 55 mg/dL (5-11.8) H 04/28/18 Unknown Immunofix Electrophor see below 04/28/18 14:47 Nutrition/Malnutrition Assess - Dietary Evaluation Nutrition/Malnutrition Findings: Nutrition Notes Start: 05/04/18 15:00 Freq: Status: Active Protocol: Document 05/04/18 15:00 RM (Rec: 05/04/18 15:17 RM [id number]) Nutrition Notes Need for Assessment generated from: LOS Initial or Follow up Assessment Current Diagnosis Acute Kidney Injury,Small Bowel Obstruction Other Pertinent Diagnosis Metastatic endometrial cancer, Ascites, N/V Current Diet NPO Labs/Tests Reviewed Pertinent Medications Reviewed Height 5 ft 5 in Weight 67.245 kg [place] Body Weight (kg) 56.81 BMI 24.6 Subjective/Other Information Screened for LOS. Pt on clear liquid diet previously and per record drank 100% X 1 meal. Pt now NPO d/t SBO. Pt stated that [place] she had no appetite and she ate half a meal daily X 7 days. Unsure of UBW. Burn Absent Trauma Absent Minimum of two criteria Yes Energy Intake (non-severe) <75% Estimated Energy Requirement >7 days Energy Intake (severe) < or equal to 50% Estimated Energy Requirement > or equal to 5 days Fluid Accumulation Moderate to Severe (severe) #1 Nutrition Diagnosis Malnutrition Etiology SBO/metastatic endometrial cancer As Evidenced by Signs and Symptoms pt statement that [place] she ate half a meal daily X 7 days, ascites Is patient on ventilator? No Is Patient Ambulatory and/or Out of Bed Yes REE-([facility]-ambulatory/OOB) [ 1557.829 [email or web address]] Calculation Used for Recommendations [facility] Additional Notes Protein Needs: 67-101g (1-1.5g /kg) Fluid Needs: 1 ml/kcal Nutrition Intervention Change Diet Order: Advance when medically able Add Supplement/Snack (indicate name/kcal Ensure Enlive Chocolate 1 /protein ) daily once diet advanced Provides kCal: 350 Provides Protein (gm) 20 Goal #1 Diet advancement Anticipated Discharge Needs: Unable to determine at this time Follow-Up By: 05/07/18 Additional Comments Follow for diet advancement, PO and ONS intakes
--- NOTE | 2018-05-05 12:50 | Progress Note ---
Assessment and Plan Assessment and plan: 67-year-old woman with past medical history of stage IV, recurrence papillary serous endometrial carcinoma. She is status post hysterectomy, has received multiple rounds of chemotherapy and radiation therapy. She has just established with Dr. Palacio should be seen for ongoing chemotherapy. She presented with nausea vomiting abdominal tightness and weakness. The patient has received paracentesis, 3.5 L of fluid have been removed. -Diagnosis Small bowel obstruction Multiple intra-abdominal adhesions and seeding of malignancy in the abdomen Acute on chronic kidney disease, she suffered toxicity from chemotherapy to her kidneys Stage IV endometrial carcinoma Malignant ascites Atrial fibrillation with RVR Plan Continue IV fluids, continue NG to nasal suction, advance diet when okayed by general surgery Nephrology appreciated, avoid nephrotoxins Oncology appreciated Rate control medications ordered, transferred to telemetry unit, cardiology c onsult The patient would like to get better and follow up with Dr. Palacio for chemotherapy, but is currently her goal DVT prophylaxis; chemical History Interval history: Review of systems Constitutional: No fevers, no malaise, no joint pains CVS: No chest pain, no orthopnea, no dyspnea on exertion, no pedal edema GI: She complains of intermittent abdominal pain nausea and vomiting Respiratory: No shortness of breath, no wheezing, no coughing Hospitalist Physical - Physical exam Narrative exam: General.: Appears well, no distress, nontoxic HEENT: Moist mucous membranes, extraocular muscles intact, no lymphadenopathy Neck: supple Cardiac: S1-S2 heard Lungs: clear to auscultation bilaterally Abdomen: soft , nontender, nondistended, bowel sounds positive Extremities: no edema clubbing or cyanosis Skin: no rash or lesions Neurologic: no gross focal deficits Psych: calm, and cooperative - Constitutional Vitals: Temp Pulse Resp BP Pulse Ox 97.7 F 173 H 22 133/87 95 05/05/18 07:29 05/05/18 10:59 05/05/18 07:29 05/05/18 07:29 05/05/18 07:29 General appearance: Present: no acute distress Results - Labs CBC & Chem 7: 05/03/18 04:52 05/08/18 08:41 Labs: Laboratory Last Values WBC 12.1 K/mm3 (4.5-11.0) H 05/03/18 04:52 RBC 3.28 M/mm3 (3.65-5.03) L 05/03/18 04:52 Hgb 9.0 gm/dl (10.1-14.3) L 05/03/18 04:52 Hct 27.3 % (30.3-42.9) L 05/03/18 04:52 MCV 83 fl (79-97) 05/03/18 04:52 MCH 27 pg (28-32) L 05/03/18 04:52 MCHC 33 % (30-34) 05/03/18 04:52 RDW 19.3 % (13.2-15.2) H 05/03/18 04:52 Plt Count 352 K/mm3 (140-440) 05/03/18 04:52 Lymph % (Auto) 3.7 % (13.4-35.0) L 05/03/18 04:52 [place] % (Auto) 8.3 % (0.0-7.3) H 05/03/18 04:52 Eos % (Auto) 0.1 % (0.0-4.3) 05/03/18 04:52 Baso % (Auto) 0.0 % (0.0-1.8) 05/03/18 04:52 Lymph # 0.4 K/mm3 (1.2-5.4) L 05/03/18 04:52 [place] # 1.0 K/mm3 (0.0-0.8) H 05/03/18 04:52 Eos # 0.0 K/mm3 (0.0-0.4) 05/03/18 04:52 Baso # 0.0 K/mm3 (0.0-0.1) 05/03/18 04:52 Seg Neutrophils % 87.9 % (40.0-70.0) H 05/03/18 04:52 Seg Neutrophils # 10.7 K/mm3 (1.8-7.7) H 05/03/18 04:52 PT 16.3 Sec. (12.2-14.9) H 04/28/18 04:16 INR 1.23 (0.87-1.13) H 04/28/18 04:16 Sodium 144 mmol/L (137-145) 05/04/18 14:10 Potassium 5.0 mmol/L (3.6-5.0) 05/04/18 14:10 Chloride 106.2 mmol/L (98-107) 05/04/18 14:10 Carbon Dioxide 18 mmol/L (22-30) L 05/04/18 14:10 Anion Gap 25 mmol/L 05/04/18 14:10 BUN 94 mg/dL (7-17) H 05/04/18 14:10 Creatinine 3.5 mg/dL (0.7-1.2) H 05/04/18 14:10 Estimated GFR 16 ml/min 05/04/18 14:10 BUN/Creatinine Ratio 27 % 05/04/18 14:10 Glucose 110 mg/dL (65-100) H 05/04/18 14:10 Osmolality 324 Mosm/kg 04/28/18 14:47 Uric Acid 16.8 mg/dL (3.5-7.6) H 04/28/18 14:47 Calcium 8.6 mg/dL (8.4-10.2) 05/04/18 14:10 Magnesium 2.80 mg/dL (1.7-2.3) H 04/28/18 04:16 Iron 21 ug/dL (37-170) L 05/03/18 04:52 TIBC 143 mcg/dL (250-450) L 05/03/18 04:52 Ferritin 244.3 ng/mL (13.0-400.0) 05/03/18 04:52 Total Bilirubin 0.30 mg/dL (0.1-1.2) 04/27/18 21:46 AST 22 units/L (5-40) 04/27/18 21:46 ALT 11 units/L (7-56) 04/27/18 21:46 Alkaline Phosphatase 92 units/L (35-129) 04/27/18 21:46 Total Creatine Kinase 38 units/L (30-135) 04/28/18 04:16 Total Protein 6.8 g/dL (6.3-8.2) 04/27/18 21:46 Albumin 3.0 g/dL (3.9-5) L 04/27/18 21:46 Albumin/Globulin Ratio 0.8 % 04/27/18 21:46 CA 125 Antigen 1208 U/mL (<35) H 04/30/18 04:33 Vitamin B12 1451 pg/mL (211-911) H 05/03/18 04:52 Folate 18.07 ng/mL (7.3-26.0) 05/03/18 04:52 Urine Color Yellow (Yellow) 04/28/18 Unknown Urine Turbidity Slightly-cloudy (Clear) 04/28/18 Unknown Urine pH 5.0 (5.0-7.0) 04/28/18 Unknown Ur Specific [place] 1.015 (1.003-1.030) 04/28/18 Unknown Urine Protein 30 mg/dl mg/dL (Negative) 04/28/18 Unknown Urine Glucose (UA) Neg mg/dL (Negative) 04/28/18 Unknown Urine Ketones Neg mg/dL (Negative) 04/28/18 Unknown Urine Blood Neg (Negative) 04/28/18 Unknown Urine Nitrite Neg (Negative) 04/28/18 Unknown Urine Bilirubin Neg (Negative) 04/28/18 Unknown Urine Urobilinogen < 2.0 mg/dL (<2.0) 04/28/18 Unknown Ur Leukocyte Esterase Tr (Negative) 04/28/18 Unknown Urine WBC (Auto) 7.0 /HPF (0.0-6.0) H 04/28/18 Unknown Urine RBC (Auto) 2.0 /HPF (0.0-6.0) 04/28/18 Unknown U Epithel Cells (Auto) 2.0 /HPF (0-13.0) 04/28/18 Unknown Urine Bacteria (Auto) 1+ /HPF (Negative) 04/28/18 Unknown Ur Transition Epith Cell 2 /HPF 04/28/18 Unknown Urine Creatinine 156.1 mg/dL (0.1-20.0) H 04/28/18 Unknown Urine Sodium 10 mmol/L 04/28/18 Unknown Urine Total Protein 55 mg/dL (5-11.8) H 04/28/18 Unknown Immunofix Electrophor see below 04/28/18 14:47 Nutrition/Malnutrition Assess - Dietary Evaluation Nutrition/Malnutrition Findings: Nutrition Notes Start: 05/04/18 15:00 Freq: Status: Active Protocol: Document 05/04/18 15:00 RM (Rec: 05/04/18 15:17 RM [id number]) Nutrition Notes Need for Assessment generated from: LOS Initial or Follow up Assessment Current Diagnosis Acute Kidney Injury,Small Bowel Obstruction Other Pertinent Diagnosis Metastatic endometrial cancer, Ascites, N/V Current Diet NPO Labs/Tests Reviewed Pertinent Medications Reviewed Height 5 ft 5 in Weight 67.245 kg [place] Body Weight (kg) 56.81 BMI 24.6 Subjective/Other Information Screened for LOS. Pt on clear liquid diet previously and per record drank 100% X 1 meal. Pt now NPO d/t SBO. Pt stated that [employer] she had no appetite and she ate half a meal daily X 7 days. Unsure of UBW. Burn Absent Trauma Absent Minimum of two criteria Yes Energy Intake (non-severe) <75% Estimated Energy Requirement >7 days Energy Intake (severe) < or equal to 50% Estimated Energy Requirement > or equal to 5 days Fluid Accumulation Moderate to Severe (severe) #1 Nutrition Diagnosis Malnutrition Etiology SBO/metastatic endometrial cancer As Evidenced by Signs and Symptoms pt statement that [employer] she ate half a meal daily X 7 days, ascites Is patient on ventilator? No Is Patient Ambulatory and/or Out of Bed Yes REE-([facility]-ambulatory/OOB) [ 1557.829 [email or web address]] Calculation Used for Recommendations [facility] Additional Notes Protein Needs: 67-101g (1-1.5g /kg) Fluid Needs: 1 ml/kcal Nutrition Intervention Change Diet Order: Advance when medically able Add Supplement/Snack (indicate name/kcal Ensure Enlive Chocolate 1 /protein ) daily once diet advanced Provides kCal: 350 Provides Protein (gm) 20 Goal #1 Diet advancement Anticipated Discharge Needs: Unable to determine at this time Follow-Up By: 05/07/18 Additional Comments Follow for diet advancement, PO and ONS intakes
[2018-05-05] MEDS: REGLAN IV PRN (13:46)
[2018-05-05 13:51] LABS: Calcium 8.9 mg/dL (8.4-10.2)
[2018-05-05] MEDS: CARDIZEM 100 MG in D5W 80 ML IV SCH ×2 (20:00→21:48)
--- NOTE | 2018-05-06 00:02 | Hem/Onc Progress Note ---
Assessment and Plan 1. Metastatic ovarian cancer. 2. The patient was with Dr. Gill, had undergone hysterectomy. It appears the patient received 6 cycles of carboplatin and Taxol. She is not on any oral agent. She also received radiation to the abdomen and there is a plan to go to [facility] oncologist. She does not know the name of the oncologist. I asked her if this is [facility] or [facility], the patient was not sure. 3. History of deep venous thrombosis in the neck. The patient was on Eliquis. This has been held. 4. Bowel obstruction. Surgical team is following the patient. 5. The patient was n.p.o. Now, there is plan for liquid diet. She is having flatus. 6. Anemia. MCV is normal. This may be tumor related. 7. Renal impairment. Nephrology team is following the patient. 8. Hysterectomy in the past. 9. The radiologist mentioned lymph nodes in the abdomen. 10. CA-125. I discussed with her regarding oral agents. I will help her during an inpatient status and then she will see the [facility], with whom she was supposed to have the first visit this week. She will call them for an appointment. paracentesis planned 05/02 - s/p paracentesis on 05/01 rt leg edema - DVT study pt has OP follow up with new oncologist mild anemia - def Ix 05/03 - d/w dr wilks - surgeon - as pt vomiting 05/04 - CA 125 high bowel obstruction - tumor vs adhesion related - pt on NGT suction - d/w RN 05/05 - d/w dr Palacio pt was seen on 04/11 in [facility] clinic - pt has papillary serous adenocarcinoma - involving enometrium - and ovaries - diagnosed June 2017 and got chemo till nov 2017 then - pt had disease recurrence pts CA 125 was 400 in mar the [place] was 20% +- Doxil and anti progestrone meds was an option genetic test was mentioned as negative h/o TB in LN - s/p Rx till Feb plan - d/w hospitalist - ? ID consult - ? 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 Interval history: ngt removed - pt on ice chips and clear liquid diet Objective - Constitutional Vitals: Last Vital Signs Temp 98.2 F 05/05/18 21:41 Pulse 145 H 05/05/18 22:43 Resp 20 05/05/18 21:41 BP 121/72 05/05/18 21:41 Pulse Ox 94 05/05/18 21:41 Pain Intensity (0-10): 1/10 (abdo) General appearance: no acute distress Performance status: 3-limited selfcare - EENT Eyes: EOM intact ENT: clear oral mucosa Lymph node exam: negative cervical - Neck Neck: normal ROM - Respiratory Respiratory effort: Positive: normal Respiratory: bilateral: CTA - Cardiovascular Heart Sounds: Present: S1 & S2 Extremity abnormal: edema - Gastrointestinal General gastrointestinal: Present: soft, distended Rectal Exam: deferred - Genitourinary Female genitourinary: Present: deferred - Integumentary Integumentary: warm - Neurologic Neurologic: moves all extremities - Labs Lab Results: Laboratory Results - last 24 hr 05/05/18 11:53 Sodium 144 Potassium 4.2 Chloride 103.0 Carbon Dioxide 23 Anion Gap 22 BUN 91 H Creatinine 3.3 H Estimated GFR 17 BUN/Creatinine Ratio 28 Glucose 125 H Calcium 8.9 Medications & Allergies - Medications Allergies/Adverse Reactions: Allergies lisinopril Allergy (Verified 04/28/18 12:20) Swelling Home Medications: Home Medications Medication Instructions Recorded Confirmed Last Taken Type Cod Liver Oil 1 each PO DAILY 06/07/17 04/28/18 04/20/18 History Ergocalciferol(Vitamin D2)(Nf) 400 unit PO DAILY 06/07/17 04/28/18 04/26/18 10:00 History [Vitamin D (Nf)] One Daily Multivitamin Tablet 1 tab PO DAILY 06/07/17 04/28/18 04/26/18 21:00 History amLODIPine [Norvasc] 10 mg PO DAILY 06/07/17 04/28/18 04/26/18 21:00 History hydroCHLOROthiazide [HCTZ] 12.5 mg PO DAILY 06/07/17 04/28/18 04/26/18 10:00 History Apixaban [Eliquis] 5 mg PO DAILY 04/16/18 04/28/18 04/23/18 21:00 History Active Medications: Generic Name Dose Route Start Last Admin Trade Name Freq PRN Reason Stop Dose Admin Diltiazem HCl 10 mg 05/05/18 10:37 Cardizem IV Q6H PRN sustained HR> 130 Sodium Bicarbonate 150 meq/ 1,150 mls @ 100 mls/hr 05/04/18 19:00 05/05/18 10:04 Dextrose IV 100 mls/hr DIRECT CATHI Administration Diltiazem HCl 100 mg/ Dextrose 100 mls @ 5 mls/hr 05/05/18 20:00 05/05/18 20:00 IV 5 mg/hr DIRECT CATHI 5 mls/hr Administration 5 MG/HR Metoclopramide HCl 5 mg 04/28/18 12:43 05/05/18 13:46 Reglan IV 5 mg Q6H PRN Administration Nausea And Vomiting Metoprolol Tartrate 5 mg 05/05/18 10:37 05/05/18 21:37 Lopressor IV 5 mg Q4H PRN Administration sustained HR > 130 Metoprolol Tartrate 25 mg 05/05/18 11:00 05/05/18 21:37 Lopressor PO 25 mg BID CATHI Administration Morphine Sulfate 2 mg 04/28/18 12:21 04/29/18 19:42 Morphine IV 2 mg Q3H PRN Administration Pain, Moderate (4-6) Ondansetron HCl 4 mg 04/28/18 12:22 05/03/18 08:46 Zofran IV 4 mg Q8H PRN Administration N/V unrelieved by Mauriliolan Pantoprazole Sodium 40 mg 05/03/18 10:00 05/05/18 10:03 Protonix PO 40 mg DAILY CATHI Administration Phenol 1 spray 05/03/18 14:20 Chloraseptic MM PRN PRN Sore Throat
[2018-05-06] MEDS: LOPRESSOR IV PRN (03:27)
[2018-05-06] MEDS: SODIUM BICARBONATE 150 MEQ in D5W 1,000 ML IV SCH (05:03)
[2018-05-06] MEDS: CARDIZEM 100 MG in D5W 80 ML IV SCH (05:03)
[2018-05-06 08:37] LABS: Calcium 8.4 mg/dL (8.4-10.2)
[2018-05-06] MEDS: PROTONIX PO SCH (09:22)
[2018-05-06] MEDS: LOPRESSOR PO SCH (09:22)
--- NOTE | 2018-05-06 09:27 | Progress Note ---
Assessment and Plan - Patient Problems (1) Small bowel obstruction Current Visit: Yes Status: Acute Plan to address problem: Patient stable. Agree with advancement in diet. Please call with questions. Time=10min Subjective Date of service: 05/06/18 Patient Reports: Positive: no new complaints, tolerating liquids well Objective Vital Signs - 12hr 05/05/18 05/05/18 05/05/18 21:41 22:43 23:38 Temperature 98.2 F 97.3 F L Pulse Rate 109 H 145 H 84 Pulse Rate [ Apical] Respiratory 20 22 Rate Blood Pressure 121/72 112/59 Blood Pressure [Right] O2 Sat by Pulse 94 94 Oximetry 05/06/18 05/06/18 05/06/18 07:39 08:22 09:19 Temperature 97.3 F L Pulse Rate 78 135 H Pulse Rate [ 134 H Apical] Respiratory 24 Rate Blood Pressure Blood Pressure 125/75 [Right] O2 Sat by Pulse 93 95 Oximetry 05/06/18 09:22 Temperature Pulse Rate 134 H Pulse Rate [ Apical] Respiratory Rate Blood Pressure 125/75 Blood Pressure [Right] O2 Sat by Pulse Oximetry - General physical appearance no distress, no pain - Respiratory normal expansion, normal respiratory effort - Abdomen soft, not tender, not distended, not guarding, not rigid - Labs 05/03/18 04:52 05/06/18 07:55 Diabetes panel 05/05/18 05/06/18 Range/Units 11:53 07:55 Sodium 144 142 (137-145) mmol/L Potassium 4.2 4.2 (3.6-5.0) mmol/L Chloride 103.0 101.8 (98-107) mmol/L Carbon Dioxide 23 25 (22-30) mmol/L BUN 91 H 94 H (7-17) mg/dL Creatinine 3.3 H 3.4 H (0.7-1.2) mg/dL Glucose 125 H 124 H (65-100) mg/dL Calcium 8.9 8.4 (8.4-10.2) mg/dL Calcium panel 05/05/18 05/06/18 Range/Units 11:53 07:55 Calcium 8.9 8.4 (8.4-10.2) mg/dL Pituitary panel 05/05/18 05/06/18 Range/Units 11:53 07:55 Sodium 144 142 (137-145) mmol/L Potassium 4.2 4.2 (3.6-5.0) mmol/L Chloride 103.0 101.8 (98-107) mmol/L Carbon Dioxide 23 25 (22-30) mmol/L BUN 91 H 94 H (7-17) mg/dL Creatinine 3.3 H 3.4 H (0.7-1.2) mg/dL Glucose 125 H 124 H (65-100) mg/dL Calcium 8.9 8.4 (8.4-10.2) mg/dL Adrenal panel 05/05/18 05/06/18 Range/Units 11:53 07:55 Sodium 144 142 (137-145) mmol/L Potassium 4.2 4.2 (3.6-5.0) mmol/L Chloride 103.0 101.8 (98-107) mmol/L Carbon Dioxide 23 25 (22-30) mmol/L BUN 91 H 94 H (7-17) mg/dL Creatinine 3.3 H 3.4 H (0.7-1.2) mg/dL Glucose 125 H 124 H (65-100) mg/dL Calcium 8.9 8.4 (8.4-10.2) mg/dL
--- NOTE | 2018-05-06 11:48 | Hem/Onc Progress Note ---
Assessment and Plan 1. Metastatic ovarian cancer. 2. The patient was with Dr. Gill, had undergone hysterectomy. It appears the patient received 6 cycles of carboplatin and Taxol. She is not on any oral agent. She also received radiation to the abdomen and there is a plan to go to [facility] oncologist. She does not know the name of the oncologist. I asked her if this is [facility] or [facility], the patient was not sure. 3. History of deep venous thrombosis in the neck. The patient was on Eliquis. This has been held. 4. Bowel obstruction. Surgical team is following the patient. 5. The patient was n.p.o. Now, there is plan for liquid diet. She is having flatus. 6. Anemia. MCV is normal. This may be tumor related. 7. Renal impairment. Nephrology team is following the patient. 8. Hysterectomy in the past. 9. The radiologist mentioned lymph nodes in the abdomen. 10. CA-125. I discussed with her regarding oral agents. I will help her during an inpatient status and then she will see the [facility], with whom she was supposed to have the first visit this week. She will call them for an appointment. 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 ID consult - ? trial with PARP inhibitor as the tumor is papillary serous and CA 125 is now >1200 trial as advanced ovarian pt is planning to go to [place] I will see if I can get her samples of PARP inhibitor - the regualr dose is 600 mg BID for Rubraca - will look into 300 mg q 12 - once GI SBO better 3/17 - d/w pt reg endometrial and papillary serous adeno pt is not keen for Iv chemo and is planning to go to [place] her nephew helps her. she will read about PARP inhibitor and we will look into giving her samples of the meds and start at a lower dose pt mazariegos a port - Patient Problems (1) 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 Current Visit: Yes Status: Acute Subjective Date of service: 05/06/18 Principal diagnosis: endometrial cancer Interval history: had BM - diet being progressed Objective - Constitutional Vitals: Last Vital Signs Temp 97.3 F L 05/06/18 07:39 Pulse 134 H 05/06/18 09:22 Resp 24 05/06/18 07:39 BP 125/75 05/06/18 09:22 Pulse Ox 95 05/06/18 08:22 Pain Intensity (0-10): denies any pain General appearance: no acute distress Performance status: 3-limited selfcare - EENT Eyes: EOM intact ENT: clear oral mucosa Lymph node exam: negative cervical - Neck Neck: normal ROM - Respiratory Respiratory effort: Positive: normal Respiratory: bilateral: CTA - Cardiovascular Heart Sounds: Present: S1 & S2 Extremity abnormal: edema - Gastrointestinal General gastrointestinal: Present: soft, distended Rectal Exam: deferred - Genitourinary Female genitourinary: Present: deferred - Integumentary Integumentary: warm - Musculoskeletal Musculoskeletal: generalized weakness - Neurologic Neurologic: moves all extremities - Labs Lab Results: Laboratory Results - last 24 hr 05/05/18 05/06/18 05/06/18 11:53 07:55 08:12 Sodium 144 142 Potassium 4.2 4.2 Chloride 103.0 101.8 Carbon Dioxide 23 25 Anion Gap 22 19 BUN 91 H 94 H Creatinine 3.3 H 3.4 H Estimated GFR 17 16 BUN/Creatinine Ratio 28 28 Glucose 125 H 124 H POC Glucose 122 H Calcium 8.9 8.4 Medications & Allergies - Medications Allergies/Adverse Reactions: Allergies lisinopril Allergy (Verified 04/28/18 12:20) Swelling Home Medications: Home Medications Medication Instructions Recorded Confirmed Last Taken Type Cod Liver Oil 1 each PO DAILY 06/07/17 04/28/18 04/20/18 History Ergocalciferol(Vitamin D2)(Nf) 400 unit PO DAILY 06/07/17 04/28/18 04/26/18 10:00 History [Vitamin D (Nf)] One Daily Multivitamin Tablet 1 tab PO DAILY 06/07/17 04/28/18 04/26/18 21:00 History amLODIPine [Norvasc] 10 mg PO DAILY 06/07/17 04/28/18 04/26/18 21:00 History hydroCHLOROthiazide [HCTZ] 12.5 mg PO DAILY 06/07/17 04/28/18 04/26/18 10:00 History Apixaban [Eliquis] 5 mg PO DAILY 04/16/18 04/28/18 04/23/18 21:00 History Active Medications: Generic Name Dose Route Start Last Admin Trade Name Freq PRN Reason Stop Dose Admin Diltiazem HCl 10 mg 05/05/18 10:37 Cardizem IV Q6H PRN sustained HR> 130 Sodium Bicarbonate 150 meq/ 1,150 mls @ 100 mls/hr 05/04/18 19:00 05/06/18 05:03 Dextrose IV 100 mls/hr DIRECT CATHI Administration Diltiazem HCl 100 mg/ Dextrose 100 mls @ 5 mls/hr 05/05/18 20:00 05/06/18 05:03 IV 5 mg/hr DIRECT CATHI 5 mls/hr Administration 5 MG/HR Metoclopramide HCl 5 mg 04/28/18 12:43 05/05/18 13:46 Reglan IV 5 mg Q6H PRN Administration Nausea And Vomiting Metoprolol Tartrate 5 mg 05/05/18 10:37 05/06/18 03:27 Lopressor IV 5 mg Q4H PRN Administration sustained HR > 130 Metoprolol Tartrate 25 mg 05/05/18 11:00 05/06/18 09:22 Lopressor PO 25 mg BID CATHI Administration Morphine Sulfate 2 mg 04/28/18 12:21 04/29/18 19:42 Morphine IV 2 mg Q3H PRN Administration Pain, Moderate (4-6) Ondansetron HCl 4 mg 04/28/18 12:22 05/03/18 08:46 Zofran IV 4 mg Q8H PRN Administration N/V unrelieved by Reglan Pantoprazole Sodium 40 mg 05/03/18 10:00 05/06/18 09:22 Protonix PO 40 mg DAILY CATHI Administration Phenol 1 spray 05/03/18 14:20 Chloraseptic MM PRN PRN Sore Throat
--- NOTE | 2018-05-06 12:36 | Progress Note ---
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 Interval history: resting in bed today Objective - Exam Narrative Exam: HEENT: Oral mucosa moist no pallor or icterus Neck: Supple no JVD Chest: Clear to auscultation anteriorly CVS: Regular rate and rhythm S1 and S2 heard Abdomen: Soft nontender no suprapubic masses no organomegaly appreciable Abdominal distention with some fluid thrill Extremity: Dry skin less than 1+ peripheral edema Musculoskeletal: No joint effusion noted in knees and ankle Neurological: Alert awake Dermatology: No petechial rashes Psychiatry: No evidence of any agitation and aggression noted - Vital Signs Vital signs: Vital Signs - 12hr 05/06/18 05/06/18 05/06/18 07:39 08:22 09:19 Temperature 97.3 F L Pulse Rate 78 135 H Pulse Rate [ 134 H Apical] Respiratory 24 Rate Blood Pressure Blood Pressure 125/75 [Right] O2 Sat by Pulse 93 95 Oximetry 05/06/18 09:22 Temperature Pulse Rate 134 H Pulse Rate [ Apical] Respiratory Rate Blood Pressure 125/75 Blood Pressure [Right] O2 Sat by Pulse Oximetry - Lab 05/03/18 04:52 05/06/18 07:55 Most recent lab results Calcium 8.4 mg/dL (8.4-10.2) 05/06/18 07:55 Magnesium 2.80 mg/dL (1.7-2.3) H 04/28/18 04:16 Urine Creatinine 156.1 mg/dL (0.1-20.0) H 04/28/18 Unknown Urine Sodium 10 mmol/L 04/28/18 Unknown Urine Total Protein 55 mg/dL (5-11.8) H 04/28/18 Unknown Medications & Allergies - Medications Allergies/Adverse Reactions: Allergies lisinopril Allergy (Verified 04/28/18 12:20) Swelling Home Medications: Home Medications Medication Instructions Recorded Confirmed Last Taken Type Cod Liver Oil 1 each PO DAILY 06/07/17 04/28/18 04/20/18 History Ergocalciferol(Vitamin D2)(Nf) 400 unit PO DAILY 06/07/17 04/28/18 04/26/18 10:00 History [Vitamin D (Nf)] One Daily Multivitamin Tablet 1 tab PO DAILY 06/07/17 04/28/18 04/26/18 21:00 History amLODIPine [Norvasc] 10 mg PO DAILY 06/07/17 04/28/18 04/26/18 21:00 History hydroCHLOROthiazide [HCTZ] 12.5 mg PO DAILY 06/07/17 04/28/18 04/26/18 10:00 History Apixaban [Eliquis] 5 mg PO DAILY 04/16/18 04/28/18 04/23/18 21:00 History Active Medications: Generic Name Dose Route Start Last Admin Trade Name Freq PRN Reason Stop Dose Admin Diltiazem HCl 10 mg 05/05/18 10:37 Cardizem IV Q6H PRN sustained HR> 130 Diltiazem HCl 100 mg/ Dextrose 100 mls @ 5 mls/hr 05/05/18 20:00 05/06/18 05:03 IV 5 mg/hr DIRECT CATHI 5 mls/hr Administration 5 MG/HR Sodium Chloride 1,000 mls @ 100 mls/hr 05/06/18 13:00 Nacl 0.45% 1000 Ml IV DIRECT CATHI Metoclopramide HCl 5 mg 04/28/18 12:43 05/05/18 13:46 Reglan IV 5 mg Q6H PRN Administration Nausea And Vomiting Metoprolol Tartrate 5 mg 05/05/18 10:37 05/06/18 03:27 Lopressor IV 5 mg Q4H PRN Administration sustained HR > 130 Metoprolol Tartrate 25 mg 05/05/18 11:00 05/06/18 09:22 Lopressor PO 25 mg BID CATHI Administration Morphine Sulfate 2 mg 04/28/18 12:21 04/29/18 19:42 Morphine IV 2 mg Q3H PRN Administration Pain, Moderate (4-6) Ondansetron HCl 4 mg 04/28/18 12:22 05/03/18 08:46 Zofran IV 4 mg Q8H PRN Administration N/V unrelieved by Reglan Pantoprazole Sodium 40 mg 05/03/18 10:00 05/06/18 09:22 Protonix PO 40 mg DAILY CATHI Administration Phenol 1 spray 05/03/18 14:20 Chloraseptic MM PRN PRN Sore Throat
--- NOTE | 2018-05-06 14:08 | Consultation ---
History of Present Illness Consult date: 05/06/18 Consult reason: atrial fibrillation, tachycardia History of present illness: 58-year-old pleasant -[place]izen [place] woman with history of hypertension, chronic paroxysmal atrial fibrillation was admitted with recurrent vomiting and dehydration. Work up revealed partial small bowel obstruction. She is known to have metastatic carcinoma of the ovary and has undergone total abdominal hysterectomy and bilateral salpingo-oophorectomy in the past. She was in sinus rhythm with a time of admission. She went into atrial fibrillation with rapid ventricular rate and heart rate at this time is around 132 to 150/Mt She is being treated with intravenous Cardizem without significant response. Potassium is normal. BUN was 94 with creatinine of 3.4. Sodium was 142. Chest x-ray one view on 05/08/2018 revealed left lung mass less/ infiltrate . small left pleural effusion. She has had paracentesis 5 days ago on 3.5 L of fluid was removed. She was on Eliquis and it was dcd before she went for paracentesis. At this time she is not on any anticoagulant. She had a right lower extremity venous Doppler study on 05/02/2018 which was negative for DVT. She has undergone chemotherapy and radiotherapy in the past. I reviewed an echocardiogram which revealed a moderate global left ventricular systolic dysfunction with the LV of 35-40%, grade 1 diastolic left ventricular dysfunction no evidence of pericardial effusion. Large L pleural effusion was seen. She doesn't complain of any chest pain, shortness of breath, palpitations or dizziness. She gives history of swelling of both legs and feet. Past History Past Medical History: atrial fib, cancer (metastatic ovarian ca), hypertension, renal failure, other Past Surgical History: hysterectomy, Other (Bilateral SO, Portacath) Social history: no significant social history, Lives alone Family history: CAD Medications and Allergies Allergies Allergy/AdvReac Type Severity Reaction Status Date / Time lisinopril Allergy Swelling Verified 04/28/18 12:20 Home Medications Medication Instructions Recorded Confirmed Last Taken Type Cod Liver Oil 1 each PO DAILY 06/07/17 04/28/18 04/20/18 History Ergocalciferol(Vitamin D2)(Nf) 400 unit PO DAILY 06/07/17 04/28/18 04/26/18 10:00 History [Vitamin D (Nf)] One Daily Multivitamin Tablet 1 tab PO DAILY 06/07/17 04/28/18 04/26/18 21:00 History amLODIPine [Norvasc] 10 mg PO DAILY 06/07/17 04/28/18 04/26/18 21:00 History hydroCHLOROthiazide [HCTZ] 12.5 mg PO DAILY 06/07/17 04/28/18 04/26/18 10:00 History Apixaban [Eliquis] 5 mg PO DAILY 04/16/18 04/28/18 04/23/18 21:00 History Active Meds: Active Medications Diltiazem HCl (Cardizem) 10 mg IV Q6H PRN PRN Reason: sustained HR> 130 Diltiazem HCl 100 mg/ Dextrose 100 mls @ 5 mls/hr IV DIRECT CATHI Last Admin: 05/06/18 05:03 Dose: 5 mg/hr, 5 mls/hr Documented by: Sodium Chloride (Nacl 0.45% 1000 Ml) 1,000 mls @ 100 mls/hr IV DIRECT CATHI Metoclopramide HCl (Reglan) 5 mg IV Q6H PRN PRN Reason: Nausea And Vomiting Last Admin: 05/05/18 13:46 Dose: 5 mg Documented by: Metoprolol Tartrate (Lopressor) 5 mg IV Q4H PRN PRN Reason: sustained HR > 130 Last Admin: 05/06/18 03:27 Dose: 5 mg Documented by: Metoprolol Tartrate (Lopressor) 25 mg PO BID [facility] Last Admin: 05/06/18 09:22 Dose: 25 mg Documented by: Morphine Sulfate (Morphine) 2 mg IV Q3H PRN PRN Reason: Pain, Moderate (4-6) Last Admin: 04/29/18 19:42 Dose: 2 mg Documented by: Ondansetron HCl (Zofran) 4 mg IV Q8H PRN PRN Reason: N/V unrelieved by Reglan Last Admin: 05/03/18 08:46 Dose: 4 mg Documented by: Pantoprazole Sodium (Protonix) 40 mg PO DAILY [facility] Last Admin: 05/06/18 09:22 Dose: 40 mg Documented by: Phenol (Chloraseptic) 1 spray MM PRN PRN PRN Reason: Sore Throat Review of Systems Ears, nose, mouth and throat: no ear discharge, no epistaxis, no bleeding gums Breasts: deferred Cardiovascular: palpitations, rapid/irregular heart beat, edema, high blood pressure, leg edema, no chest pain Respiratory: no wheezing, no sleep apnea Gastrointestinal: nausea, vomiting Genitourinary Female: no urinary frequency, no difficulty voiding, no kidney stones Menstruation: post hysterectomy Rectal: no pain Musculoskeletal: no neck pain, no muscle weakness Integumentary: no rash Neurological: no headaches, no confusion, no memory loss Psychiatric: no confusion, no irritability Endocrine: palpatations, no cold intolerance Hematologic/Lymphatic: no easy bruising, no easy bleeding Allergic/Immunologic: no wheezing Physical Examination Vital Signs Temp Pulse Resp BP Pulse Ox 97.9 F 121 H 16 101/56 98 04/27/18 21:15 04/27/18 21:15 04/27/18 21:15 04/27/18 21:15 04/27/18 21:15 General appearance: no acute distress HEENT: Positive: PERRL, EOMI Neck: Positive: neck supple, trachea midline Cardiac: Positive: irregularly irregular, Tachycardia Lungs: Positive: Other (Decreased air entry L side) Abdomen: Positive: Soft, Active Bowel Sounds, Ascites Female genitourinary: deferred Skin: Negative: Rash Musculoskeletal: No Fluid Collection, No Pain, Normal Range of Motion Extremities: Present: normal, upper extr. pulses, lower extr. pulses, +1 Edema (Bilateral) Results 05/03/18 04:52 05/06/18 07:55 Comprehensive Metabolic Panel 05/06/18 Range/Units 07:55 Sodium 142 (137-145) mmol/L Potassium 4.2 (3.6-5.0) mmol/L Chloride 101.8 (98-107) mmol/L Carbon Dioxide 25 (22-30) mmol/L BUN 94 H (7-17) mg/dL Creatinine 3.4 H (0.7-1.2) mg/dL Glucose 124 H (65-100) mg/dL Calcium 8.4 (8.4-10.2) mg/dL - Imaging and Cardiology Echo: report reviewed, image reviewed EKG: report reviewed, image reviewed - EKG Interpretation EKG shows: tachycardia, sinus rhythm, atrial fibrillation Assessment and Plan Serum Magnesium level & F/U. We'll place her back on Eliquis 5 mg by mouth twice a day. Discontinue intravenous Cardizem and start her on intravenous amiodarone. Would increase the dose of metoprolol. Close blood pressure and cardiac monitoring is recommended. 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 Current Visit: Yes Status: Acute (4) Small bowel obstruction Current Visit: Yes Status: Acute (5) Atrial fibrillation with RVR Current Visit: Yes Status: Acute (6) Anemia Current Visit: Yes Status: Chronic (7) Hypertension Current Visit: Yes Status: Chronic (8) Pleural effusion, left Current Visit: Yes Status: Acute (9) Status post chemotherapy Current Visit: Yes Status: Chronic (10) S/P radiotherapy Current Visit: Yes Status: Chronic (11) S/P [id number] (total abdominal hysterectomy and bilateral salpingo-oophorectomy) Current Visit: Yes Status: Chronic (12) LV dysfunction Current Visit: Yes Status: Acute
[2018-05-06] MEDS ORDERED: CORDARONE 900 MG in D5W 482 ML IV SCH (15:00)
[2018-05-06] MEDS: ZOFRAN IV PRN (15:28)
--- NOTE | 2018-05-06 15:34 | Progress Note ---
Assessment and Plan Assessment and plan: 67-year-old woman with past medical history of stage IV, recurrence papillary serous endometrial carcinoma. She is status post hysterectomy, has received multiple rounds of chemotherapy and radiation therapy. She has just established with Dr. Palacio should be seen for ongoing chemotherapy. She presented with nausea vomiting abdominal tightness and weakness. The patient has received paracentesis, 3.5 L of fluid have been removed. -Diagnosis Small bowel obstruction Multiple intra-abdominal adhesions and seeding of malignancy in the abdomen Acute on chronic kidney disease, she suffered toxicity from chemotherapy to her kidneys Stage IV endometrial carcinoma Malignant ascites Atrial fibrillation with RVR Hypercoagulable states Large right pleural effusion Acute on chronic systolic CHF EF 40% Plan Continue IV fluids, continue NG to nasal suction, advance diet when okayed by general surgery Nephrology appreciated, avoid nephrotoxins Oncology inputs appreciated Rate control medications ordered, cardiology input appreciated, optimizing control medications, she was restarted on eliquis The patient would like to get better and follow up with Dr. Palacio for chemotherapy, but is currently her goal DVT prophylaxis; chemical History Interval history: Review of systems Constitutional: No fevers, no malaise, no joint pains CVS: No chest pain, no orthopnea, no dyspnea on exertion, no pedal edema GI: She complains of intermittent abdominal pain nausea and vomiting Respiratory: No shortness of breath, no wheezing, no coughing Hospitalist Physical - Physical exam Narrative exam: General.: Appears well, no distress, nontoxic HEENT: Moist mucous membranes, extraocular muscles intact, no lymphadenopathy Neck: supple Cardiac: S1-S2 heard Lungs: Dullness of the right mid and lower lung Abdomen: soft , nontender, nondistended, bowel sounds positive Extremities: no edema clubbing or cyanosis Skin: no rash or lesions Neurologic: no gross focal deficits Psych: calm, and cooperative - Constitutional Vitals: Temp Pulse Resp BP Pulse Ox 97.3 F L 134 H 24 125/75 95 05/06/18 07:39 05/06/18 09:22 05/06/18 07:39 05/06/18 09:22 05/06/18 08:22 General appearance: Present: no acute distress Results - Labs CBC & Chem 7: 05/03/18 04:52 05/08/18 08:41 Labs: Laboratory Last Values WBC 12.1 K/mm3 (4.5-11.0) H 05/03/18 04:52 RBC 3.28 M/mm3 (3.65-5.03) L 05/03/18 04:52 Hgb 9.0 gm/dl (10.1-14.3) L 05/03/18 04:52 Hct 27.3 % (30.3-42.9) L 05/03/18 04:52 MCV 83 fl (79-97) 05/03/18 04:52 MCH 27 pg (28-32) L 05/03/18 04:52 MCHC 33 % (30-34) 05/03/18 04:52 RDW 19.3 % (13.2-15.2) H 05/03/18 04:52 Plt Count 352 K/mm3 (140-440) 05/03/18 04:52 Lymph % (Auto) 3.7 % (13.4-35.0) L 05/03/18 04:52 [place] % (Auto) 8.3 % (0.0-7.3) H 05/03/18 04:52 Eos % (Auto) 0.1 % (0.0-4.3) 05/03/18 04:52 Baso % (Auto) 0.0 % (0.0-1.8) 05/03/18 04:52 Lymph # 0.4 K/mm3 (1.2-5.4) L 05/03/18 04:52 [place] # 1.0 K/mm3 (0.0-0.8) H 05/03/18 04:52 Eos # 0.0 K/mm3 (0.0-0.4) 05/03/18 04:52 Baso # 0.0 K/mm3 (0.0-0.1) 05/03/18 04:52 Seg Neutrophils % 87.9 % (40.0-70.0) H 05/03/18 04:52 Seg Neutrophils # 10.7 K/mm3 (1.8-7.7) H 05/03/18 04:52 PT 16.3 Sec. (12.2-14.9) H 04/28/18 04:16 INR 1.23 (0.87-1.13) H 04/28/18 04:16 Sodium 142 mmol/L (137-145) 05/06/18 07:55 Potassium 4.2 mmol/L (3.6-5.0) 05/06/18 07:55 Chloride 101.8 mmol/L (98-107) 05/06/18 07:55 Carbon Dioxide 25 mmol/L (22-30) 05/06/18 07:55 Anion Gap 19 mmol/L 05/06/18 07:55 BUN 94 mg/dL (7-17) H 05/06/18 07:55 Creatinine 3.4 mg/dL (0.7-1.2) H 05/06/18 07:55 Estimated GFR 16 ml/min 05/06/18 07:55 BUN/Creatinine Ratio 28 % 05/06/18 07:55 Glucose 124 mg/dL (65-100) H 05/06/18 07:55 POC Glucose 122 (70-105) H 05/06/18 08:12 Osmolality 324 Mosm/kg 04/28/18 14:47 Uric Acid 16.8 mg/dL (3.5-7.6) H 04/28/18 14:47 Calcium 8.4 mg/dL (8.4-10.2) 05/06/18 07:55 Magnesium 2.50 mg/dL (1.7-2.3) H 05/06/18 14:37 Iron 21 ug/dL (37-170) L 05/03/18 04:52 TIBC 143 mcg/dL (250-450) L 05/03/18 04:52 Ferritin 244.3 ng/mL (13.0-400.0) 05/03/18 04:52 Total Bilirubin 0.30 mg/dL (0.1-1.2) 04/27/18 21:46 AST 22 units/L (5-40) 04/27/18 21:46 ALT 11 units/L (7-56) 04/27/18 21:46 Alkaline Phosphatase 92 units/L (35-129) 04/27/18 21:46 Total Creatine Kinase 38 units/L (30-135) 04/28/18 04:16 Total Protein 6.8 g/dL (6.3-8.2) 04/27/18 21:46 Albumin 3.0 g/dL (3.9-5) L 04/27/18 21:46 Albumin/Globulin Ratio 0.8 % 04/27/18 21:46 CA 125 Antigen 1208 U/mL (<35) H 04/30/18 04:33 Vitamin B12 1451 pg/mL (211-911) H 05/03/18 04:52 Folate 18.07 ng/mL (7.3-26.0) 05/03/18 04:52 Urine Color Yellow (Yellow) 04/28/18 Unknown Urine Turbidity Slightly-cloudy (Clear) 04/28/18 Unknown Urine pH 5.0 (5.0-7.0) 04/28/18 Unknown Ur Specific [place] 1.015 (1.003-1.030) 04/28/18 Unknown Urine Protein 30 mg/dl mg/dL (Negative) 04/28/18 Unknown Urine Glucose (UA) Neg mg/dL (Negative) 04/28/18 Unknown Urine Ketones Neg mg/dL (Negative) 04/28/18 Unknown Urine Blood Neg (Negative) 04/28/18 Unknown Urine Nitrite Neg (Negative) 04/28/18 Unknown Urine Bilirubin Neg (Negative) 04/28/18 Unknown Urine Urobilinogen < 2.0 mg/dL (<2.0) 04/28/18 Unknown Ur Leukocyte Esterase Tr (Negative) 04/28/18 Unknown Urine WBC (Auto) 7.0 /HPF (0.0-6.0) H 04/28/18 Unknown Urine RBC (Auto) 2.0 /HPF (0.0-6.0) 04/28/18 Unknown U Epithel Cells (Auto) 2.0 /HPF (0-13.0) 04/28/18 Unknown Urine Bacteria (Auto) 1+ /HPF (Negative) 04/28/18 Unknown Ur Transition Epith Cell 2 /HPF 04/28/18 Unknown Urine Creatinine 156.1 mg/dL (0.1-20.0) H 04/28/18 Unknown Urine Sodium 10 mmol/L 04/28/18 Unknown Urine Total Protein 55 mg/dL (5-11.8) H 04/28/18 Unknown Immunofix Electrophor see below 04/28/18 14:47 Nutrition/Malnutrition Assess - Dietary Evaluation Nutrition/Malnutrition Findings: Nutrition Notes Start: 05/04/18 15:00 Freq: Status: Active Protocol: Document 05/04/18 15:00 RM (Rec: 05/04/18 15:17 [id number]) Nutrition Notes Need for Assessment generated from: LOS Initial or Follow up Assessment Current Diagnosis Acute Kidney Injury,Small Bowel Obstruction Other Pertinent Diagnosis Metastatic endometrial cancer, Ascites, N/V Current Diet NPO Labs/Tests Reviewed Pertinent Medications Reviewed Height 5 ft 5 in Weight 67.245 kg [place] Body Weight (kg) 56.81 BMI 24.6 Subjective/Other Information Screened for LOS. Pt on clear liquid diet previously and per record drank 100% X 1 meal. Pt now NPO d/t SBO. Pt stated that [employer] she had no appetite and she ate half a meal daily X 7 days. Unsure of UBW. Burn Absent Trauma Absent Minimum of two criteria Yes Energy Intake (non-severe) <75% Estimated Energy Requirement >7 days Energy Intake (severe) < or equal to 50% Estimated Energy Requirement > or equal to 5 days Fluid Accumulation Moderate to Severe (severe) #1 Nutrition Diagnosis Malnutrition Etiology SBO/metastatic endometrial cancer As Evidenced by Signs and Symptoms pt statement that PILING [employer] she ate half a meal daily X 7 days, ascites Is patient on ventilator? No Is Patient Ambulatory and/or Out of Bed Yes REE-([place]-ambulatory/OOB) [ 1557.829 NUTR.MSJOOB] Calculation Used for Recommendations [facility] Additional Notes Protein Needs: 67-101g (1-1.5g /kg) Fluid Needs: 1 ml/kcal Nutrition Intervention Change Diet Order: Advance when medically able Add Supplement/Snack (indicate name/kcal Ensure Enlive Chocolate 1 /protein ) daily once diet advanced Provides kCal: 350 Provides Protein (gm) 20 Goal #1 Diet advancement Anticipated Discharge Needs: Unable to determine at this time Follow-Up By: 05/07/18 Additional Comments Follow for diet advancement, PO and ONS intakes
[2018-05-06] MEDS: NACL 0.45% 1000 ML 1,000 ML IV SCH ×2 (15:36→23:02)
[2018-05-06] MEDS ORDERED: LOPRESSOR IV PRN (16:02)
[2018-05-06] MEDS: MORPHINE IV PRN ×2 (17:57→22:28)
[2018-05-06] MEDS: ELIQUIS PO SCH (22:28)
[2018-05-06] MEDS: REGLAN IV PRN (22:28)
[2018-05-07] MEDS: REGLAN IV PRN (06:30)
[2018-05-07] MEDS: MORPHINE IV PRN (06:31)
--- NOTE | 2018-05-07 08:25 | Hem/Onc Progress Note ---
Assessment and Plan 1. Metastatic ovarian cancer. 2. The patient was with Dr. Gill, had undergone hysterectomy. It appears the patient received 6 cycles of carboplatin and Taxol. She is not on any oral agent. She also received radiation to the abdomen and there is a plan to go to [facility] oncologist. She does not know the name of the oncologist. I asked her if this is [facility] or [facility], the patient was not sure. 3. History of deep venous thrombosis in the neck. The patient was on Eliquis. This has been held. 4. Bowel obstruction. Surgical team is following the patient. 5. The patient was n.p.o. Now, there is plan for liquid diet. She is having flatus. 6. Anemia. MCV is normal. This may be tumor related. 7. Renal impairment. Nephrology team is following the patient. 8. Hysterectomy in the past. 9. The radiologist mentioned lymph nodes in the abdomen. 10. CA-125. I discussed with her regarding oral agents. I will help her during an inpatient status and then she will see the [facility], with whom she was supposed to have the first visit this week. She will call them for an appointment. 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 ID consult - ? trial with PARP inhibitor as the tumor is papillary serous and CA 125 is now >1200 trial as advanced ovarian pt is planning to go to [place] I will see if I can get her samples of PARP inhibitor - the regualr dose is 600 mg BID for Rubraca - will look into 300 mg q 12 - once GI SBO better 3/17 diet progression as per sx team 05/07 - vomiting - d/w dr wilks once clinically stable - will start lower dose rubraca - Patient Problems (1) 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 Current Visit: Yes Status: Acute Subjective Date of service: 05/07/18 Principal diagnosis: uterine ca Interval history: vomiting + Objective - Constitutional Vitals: Last Vital Signs Temp 97.5 F L 05/07/18 03:07 Pulse 101 H 05/07/18 03:07 Resp 18 05/07/18 07:01 BP 113/76 05/07/18 03:07 Pulse Ox 95 05/07/18 03:07 - Labs Lab Results: Laboratory Results - last 24 hr 05/06/18 05/06/18 05/06/18 07:55 08:12 14:37 Sodium 142 Potassium 4.2 Chloride 101.8 Carbon Dioxide 25 Anion Gap 19 BUN 94 H Creatinine 3.4 H Estimated GFR 16 BUN/Creatinine Ratio 28 Glucose 124 H POC Glucose 122 H Calcium 8.4 Magnesium 2.50 H Medications & Allergies - Medications Allergies/Adverse Reactions: Allergies lisinopril Allergy (Verified 04/28/18 12:20) Swelling Home Medications: Home Medications Medication Instructions Recorded Confirmed Last Taken Type Cod Liver Oil 1 each PO DAILY 06/07/17 04/28/18 04/20/18 History Ergocalciferol(Vitamin D2)(Nf) 400 unit PO DAILY 06/07/17 04/28/18 04/26/18 10:00 History [Vitamin D (Nf)] One Daily Multivitamin Tablet 1 tab PO DAILY 06/07/17 04/28/18 04/26/18 21:00 History amLODIPine [Norvasc] 10 mg PO DAILY 06/07/17 04/28/18 04/26/18 21:00 History hydroCHLOROthiazide [HCTZ] 12.5 mg PO DAILY 06/07/17 04/28/18 04/26/18 10:00 History Apixaban [Eliquis] 5 mg PO DAILY 04/16/18 04/28/18 04/23/18 21:00 History Active Medications: Generic Name Dose Route Start Last Admin Trade Name Freq PRN Reason Stop Dose Admin Apixaban 5 mg 05/06/18 22:00 05/06/18 22:28 Eliquis PO 5 mg Q12HR CATHI Administration Protocol Sodium Chloride 1,000 mls @ 100 mls/hr 05/06/18 13:00 05/06/18 23:02 Nacl 0.45% 1000 Ml IV 100 mls/hr DIRECT CATHI Administration Amiodarone HCl 900 mg/ 500 mls @ 33.333 mls/hr 05/06/18 15:00 05/06/18 23:02 Dextrose IV 0.5 mg/min DIRECT CATHI 16.667 mls/hr Titration Protocol 1 MG/MIN Metoclopramide HCl 5 mg 04/28/18 12:43 05/07/18 06:30 Reglan IV 5 mg Q6H PRN Administration Nausea And Vomiting Metoprolol Tartrate 5 mg 05/06/18 16:02 Lopressor IV Q6HR PRN sustained HR > 130 Morphine Sulfate 2 mg 04/28/18 12:21 05/07/18 06:31 Morphine IV 2 mg Q3H PRN Administration Pain, Moderate (4-6) Ondansetron HCl 4 mg 04/28/18 12:22 05/06/18 15:28 Zofran IV 4 mg Q8H PRN Administration N/V unrelieved by Reglan Pantoprazole Sodium 40 mg 05/03/18 10:00 05/06/18 09:22 Protonix PO 40 mg DAILY CATHI Administration Phenol 1 spray 05/03/18 14:20 Chloraseptic MM PRN PRN Sore Throat
[2018-05-07 08:48] LABS: Calcium 8.1 mg/dL (8.4-10.2)
[2018-05-07] MEDS: PROTONIX PO SCH (11:06)
[2018-05-07] MEDS: ELIQUIS PO SCH ×2 (11:06→22:18)
[2018-05-07] MEDS: NACL 0.9% 1000 ML 1,000 ML IV SCH ×2 (11:13→18:44)
--- NOTE | 2018-05-07 11:35 | Progress Note ---
Assessment and Plan Assessment and plan: 67-year-old woman with past medical history of stage IV, recurrence papillary serous endometrial carcinoma. She is status post hysterectomy, has received multiple rounds of chemotherapy and radiation therapy. She has just established with Dr. Palacio should be seen for ongoing chemotherapy. She presented with nausea vomiting abdominal tightness and weakness. The patient has received paracentesis, 3.5 L of fluid have been removed. -Diagnosis Small bowel obstruction Multiple intra-abdominal adhesions and seeding of malignancy in the abdomen Acute on chronic kidney disease, she suffered toxicity from chemotherapy to her kidneys Stage IV endometrial carcinoma Malignant ascites Atrial fibrillation with RVR Hypercoagulable states Large right pleural effusion Acute on chronic systolic CHF EF 40% Plan Continue IV fluids, continue NG to nasal suction, advance diet when okayed by general surgery Nephrology appreciated, avoid nephrotoxins Oncology inputs appreciated Rate control medications ordered, cardiology input appreciated, optimizing control medications, she was restarted on eliquis The patient would like to get better and follow up with Dr. Palacio for chemotherapy, but is currently her goal DVT prophylaxis; chemical History Interval history: Review of systems Constitutional: No fevers, no malaise, no joint pains CVS: No chest pain, no orthopnea, no dyspnea on exertion, no pedal edema GI: She complains of intermittent abdominal pain nausea and vomiting Respiratory: No shortness of breath, no wheezing, no coughing Hospitalist Physical - Physical exam Narrative exam: General.: Appears well, no distress, nontoxic HEENT: Moist mucous membranes, extraocular muscles intact, no lymphadenopathy Neck: supple Cardiac: S1-S2 heard Lungs: Dullness of the right mid and lower lung Abdomen: soft , nontender, nondistended, bowel sounds positive Extremities: no edema clubbing or cyanosis Skin: no rash or lesions Neurologic: no gross focal deficits Psych: calm, and cooperative - Constitutional Vitals: Temp Pulse Resp BP Pulse Ox 97.4 F L 101 H 20 125/82 95 05/07/18 09:26 05/07/18 03:07 05/07/18 09:26 05/07/18 09:26 05/07/18 03:07 General appearance: Present: no acute distress Results - Labs CBC & Chem 7: 05/03/18 04:52 05/08/18 08:41 Labs: Laboratory Last Values WBC 12.1 K/mm3 (4.5-11.0) H 03/14/19 04:52 RBC 3.28 M/mm3 (3.65-5.03) L 05/03/18 04:52 Hgb 9.0 gm/dl (10.1-14.3) L 05/03/18 04:52 Hct 27.3 % (30.3-42.9) L 05/03/18 04:52 MCV 83 fl (79-97) 05/03/18 04:52 MCH 27 pg (28-32) L 05/03/18 04:52 MCHC 33 % (30-34) 05/03/18 04:52 RDW 19.3 % (13.2-15.2) H 05/03/18 04:52 Plt Count 352 K/mm3 (140-440) 05/03/18 04:52 Lymph % (Auto) 3.7 % (13.4-35.0) L 05/03/18 04:52 [place] % (Auto) 8.3 % (0.0-7.3) H 05/03/18 04:52 Eos % (Auto) 0.1 % (0.0-4.3) 05/03/18 04:52 Baso % (Auto) 0.0 % (0.0-1.8) 05/03/18 04:52 Lymph # 0.4 K/mm3 (1.2-5.4) L 05/03/18 04:52 [place] # 1.0 K/mm3 (0.0-0.8) H 05/03/18 04:52 Eos # 0.0 K/mm3 (0.0-0.4) 05/03/18 04:52 Baso # 0.0 K/mm3 (0.0-0.1) 05/03/18 04:52 Seg Neutrophils % 87.9 % (40.0-70.0) H 05/03/18 04:52 Seg Neutrophils # 10.7 K/mm3 (1.8-7.7) H 05/03/18 04:52 PT 16.3 Sec. (12.2-14.9) H 04/28/18 04:16 INR 1.23 (0.87-1.13) H 04/28/18 04:16 Sodium 141 mmol/L (137-145) 05/07/18 07:34 Potassium 4.3 mmol/L (3.6-5.0) 05/07/18 07:34 Chloride 100.0 mmol/L (98-107) 05/07/18 07:34 Carbon Dioxide 23 mmol/L (22-30) 05/07/18 07:34 Anion Gap 22 mmol/L 05/07/18 07:34 BUN 96 mg/dL (7-17) H 05/07/18 07:34 Creatinine 3.5 mg/dL (0.7-1.2) H 05/07/18 07:34 Estimated GFR 16 ml/min 05/07/18 07:34 BUN/Creatinine Ratio 27 % 05/07/18 07:34 Glucose 128 mg/dL (65-100) H 05/07/18 07:34 POC Glucose 122 (70-105) H 05/06/18 08:12 Osmolality 324 Mosm/kg 04/28/18 14:47 Uric Acid 16.8 mg/dL (3.5-7.6) H 04/28/18 14:47 Calcium 8.1 mg/dL (8.4-10.2) L 05/07/18 07:34 Magnesium 2.50 mg/dL (1.7-2.3) H 05/06/18 14:37 Iron 21 ug/dL (37-170) L 05/03/18 04:52 TIBC 143 mcg/dL (250-450) L 05/03/18 04:52 Ferritin 244.3 ng/mL (13.0-400.0) 05/03/18 04:52 Total Bilirubin 0.30 mg/dL (0.1-1.2) 04/27/18 21:46 AST 22 units/L (5-40) 04/27/18 21:46 ALT 11 units/L (7-56) 04/27/18 21:46 Alkaline Phosphatase 92 units/L (35-129) 04/27/18 21:46 Total Creatine Kinase 38 units/L (30-135) 04/28/18 04:16 Total Protein 6.8 g/dL (6.3-8.2) 04/27/18 21:46 Albumin 3.0 g/dL (3.9-5) L 04/27/18 21:46 Albumin/Globulin Ratio 0.8 % 04/27/18 21:46 CA 125 Antigen 1208 U/mL (<35) H 04/30/18 04:33 Vitamin B12 1451 pg/mL (211-911) H 05/03/18 04:52 Folate 18.07 ng/mL (7.3-26.0) 05/03/18 04:52 Urine Color Yellow (Yellow) 04/28/18 Unknown Urine Turbidity Slightly-cloudy (Clear) 04/28/18 Unknown Urine pH 5.0 (5.0-7.0) 04/28/18 Unknown Ur Specific [place] 1.015 (1.003-1.030) 04/28/18 Unknown Urine Protein 30 mg/dl mg/dL (Negative) 04/28/18 Unknown Urine Glucose (UA) Neg mg/dL (Negative) 04/28/18 Unknown Urine Ketones Neg mg/dL (Negative) 04/28/18 Unknown Urine Blood Neg (Negative) 04/28/18 Unknown Urine Nitrite Neg (Negative) 04/28/18 Unknown Urine Bilirubin Neg (Negative) 04/28/18 Unknown Urine Urobilinogen < 2.0 mg/dL (<2.0) 04/28/18 Unknown Ur Leukocyte Esterase Tr (Negative) 04/28/18 Unknown Urine WBC (Auto) 7.0 /HPF (0.0-6.0) H 04/28/18 Unknown Urine RBC (Auto) 2.0 /HPF (0.0-6.0) 04/28/18 Unknown U Epithel Cells (Auto) 2.0 /HPF (0-13.0) 04/28/18 Unknown Urine Bacteria (Auto) 1+ /HPF (Negative) 04/28/18 Unknown Ur Transition Epith Cell 2 /HPF 04/28/18 Unknown Urine Creatinine 156.1 mg/dL (0.1-20.0) H 04/28/18 Unknown Urine Sodium 10 mmol/L 04/28/18 Unknown Urine Total Protein 55 mg/dL (5-11.8) H 04/28/18 Unknown Immunofix Electrophor see below 04/28/18 14:47 Active Medications - Current Medications Current Medications: Generic Name Dose Route Start Last Admin Trade Name Freq PRN Reason Stop Dose Admin Apixaban 5 mg 05/06/18 22:00 05/07/18 11:06 Eliquis PO 5 mg Q12HR CATHI Administration Protocol Amiodarone HCl 900 mg/ 500 mls @ 33.333 mls/hr 05/06/18 15:00 05/06/18 23:02 Dextrose IV 0.5 mg/min DIRECT CATHI 16.667 mls/hr Titration Protocol 1 MG/MIN Sodium Chloride 1,000 mls @ 125 mls/hr 05/07/18 09:00 05/07/18 11:13 Nacl 0.9% 1000 Ml IV 125 mls/hr DIRECT CATHI Administration Metoclopramide HCl 5 mg 04/28/18 12:43 05/07/18 06:30 Reglan IV 5 mg Q6H PRN Administration Nausea And Vomiting Metoprolol Tartrate 5 mg 05/06/18 16:02 Lopressor IV Q6HR PRN sustained HR > 130 Morphine Sulfate 2 mg 04/28/18 12:21 05/07/18 06:31 Morphine IV 2 mg Q3H PRN Administration Pain, Moderate (4-6) Ondansetron HCl 4 mg 04/28/18 12:22 05/06/18 15:28 Zofran IV 4 mg Q8H PRN Administration N/V unrelieved by Reglan Pantoprazole Sodium 40 mg 05/03/18 10:00 05/07/18 11:06 Protonix PO 40 mg DAILY CATHI Administration Phenol 1 spray 05/03/18 14:20 Chloraseptic MM PRN PRN Sore Throat Nutrition/Malnutrition Assess - Dietary Evaluation Nutrition/Malnutrition Findings: Nutrition Notes Start: 05/04/18 15:00 Freq: Status: Active Protocol: Document 05/04/18 15:00 RM (Rec: 05/04/18 15:17 [id number]) Nutrition Notes Need for Assessment generated from: LOS Initial or Follow up Assessment Current Diagnosis Acute Kidney Injury,Small Bowel Obstruction Other Pertinent Diagnosis Metastatic endometrial cancer, Ascites, N/V Current Diet NPO Labs/Tests Reviewed Pertinent Medications Reviewed Height 5 ft 5 in Weight 67.245 kg [place] Body Weight (kg) 56.81 BMI 24.6 Subjective/Other Information Screened for LOS. Pt on clear liquid diet previously and per record drank 100% X 1 meal. Pt now NPO d/t SBO. Pt stated that [employer] she had no appetite and she ate half a meal daily X 7 days. Unsure of UBW. Burn Absent Trauma Absent Minimum of two criteria Yes Energy Intake (non-severe) <75% Estimated Energy Requirement >7 days Energy Intake (severe) < or equal to 50% Estimated Energy Requirement > or equal to 5 days Fluid Accumulation Moderate to Severe (severe) #1 Nutrition Diagnosis Malnutrition Etiology SBO/metastatic endometrial cancer As Evidenced by Signs and Symptoms pt statement that [employer] she ate half a meal daily X 7 days, ascites Is patient on ventilator? No Is Patient Ambulatory and/or Out of Bed Yes REE-([facility]-ambulatory/OOB) [ 1557.829 NUTR.MSJOOB] Calculation Used for Recommendations [facility] Additional Notes Protein Needs: 67-101g (1-1.5g /kg) Fluid Needs: 1 ml/kcal Nutrition Intervention Change Diet Order: Advance when medically able Add Supplement/Snack (indicate name/kcal Ensure Enlive Chocolate 1 /protein ) daily once diet advanced Provides kCal: 350 Provides Protein (gm) 20 Goal #1 Diet advancement Anticipated Discharge Needs: Unable to determine at this time Follow-Up By: 05/07/18 Additional Comments Follow for diet advancement, PO and ONS intakes
--- NOTE | 2018-05-07 12:40 | Progress Note ---
Assessment and Plan Pt in SR. Convert IV amio to PO amio. Initiate PO lopressor and cont as BPs permit. Cont Eliquis. The patient has been seen in conjunction with Dr. Mendez who agrees with the assessment and plan of care. 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 Current Visit: Yes Status: Acute (4) Small bowel obstruction Current Visit: Yes Status: Acute (5) Atrial fibrillation with RVR Current Visit: Yes Status: Acute (6) Anemia Current Visit: Yes Status: Chronic (7) Hypertension Current Visit: Yes Status: Chronic (8) Pleural effusion, left Current Visit: Yes Status: Acute (9) Status post chemotherapy Current Visit: Yes Status: Chronic (10) S/P radiotherapy Current Visit: Yes Status: Chronic (11) S/P [id number] (total abdominal hysterectomy and bilateral salpingo- oophorectomy) Current Visit: Yes Status: Chronic (12) LV dysfunction Current Visit: Yes Status: Acute Subjective Date of service: 05/07/18 Principal diagnosis: ovarian cancer Interval history: pt resting in bed, no current cardiac complaints. in SR on telemetry. amio gtt infusing. Objective Last Vital Signs Temp 97.4 F L 05/07/18 09:26 Pulse 101 H 05/07/18 03:07 Resp 20 05/07/18 09:26 BP 125/82 05/07/18 09:26 Pulse Ox 95 05/07/18 03:07 - Physical Examination General: Other (appears chronically ill) HEENT: Positive: PERRL, EOMI Neck: Positive: neck supple, trachea midline Cardiac: Positive: Reg Rate and Rhythm, S1/S2 Lungs: Positive: Decreased Breath Sounds Abdomen: Positive: Soft, Active Bowel Sounds, Ascites Skin: Negative: Rash Musculoskeletal: No Fluid Collection, No Pain, Normal Range of Motion Extremities: Present: normal, upper extr. pulses, lower extr. pulses, +1 Edema (Bilateral) - Labs and Meds Comprehensive Metabolic Panel 05/07/18 Range/Units 07:34 Sodium 141 (137-145) mmol/L Potassium 4.3 (3.6-5.0) mmol/L Chloride 100.0 (98-107) mmol/L Carbon Dioxide 23 (22-30) mmol/L BUN 96 H (7-17) mg/dL Creatinine 3.5 H (0.7-1.2) mg/dL Glucose 128 H (65-100) mg/dL Calcium 8.1 L (8.4-10.2) mg/dL - Imaging and Cardiology EKG: report reviewed, image reviewed Echo: report reviewed, image reviewed
--- NOTE | 2018-05-07 13:49 | Progress Note ---
Assessment and Plan 67 yo F with 1. 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 metastatic papillary endometrial endometrial cancer 3. ascites s/p paracentesis 4. TIARRA secondary to volume depletion Ct Scan A/P compared to Ct scan A/P from Mar 2018. Bowel loop appearance is similar. Ascites has reaccumulated. Radiology report notes concerns for omental caking and peritoneal studding. Obstruction series 05/03: pSBO Plan: Pt with n/v, worsening pSBO 1. NPO 2. IVF 3. insert NGT - maintain at [facility]. D/W Nursing at bedside 4. monitor licensed master social worker 5. oncology and nephro on board 6. prn pain and nausea control 7. DVT ppx 8. BMP daily - replace lytes as needed Pt with metastatic stage 4 papillary endometrial endometrial cancer with peritoneal and omental studding, possible bowel involvement leading to pSBO. I discussed conservative management with patient and importance of keeping NGT in for several days. If she does not improve, will need to discuss further options. I do not feel surgery will be of benefit especially if SBO is caused by metastatic implants involving bowel. However, will follow patient clinically. May need to consider hospice. Subjective Date of service: 05/07/18 Narrative: Pt seen and examined. Not feeling well today. Tolerated liquids this am but has had intermittent bilious emesis since yesterday. + flatus but no BM x 2 days. No f/c. No abdominal pain but abdomen is swollen. Objective Vital Signs - 12hr 05/07/18 05/07/18 05/07/18 03:07 06:31 07:01 Temperature 97.5 F L Pulse Rate 101 H Respiratory 18 22 18 Rate Blood Pressure 113/76 O2 Sat by Pulse 95 Oximetry 05/07/18 09:26 Temperature 97.4 F L Pulse Rate Respiratory 20 Rate Blood Pressure 125/82 O2 Sat by Pulse Oximetry - General physical appearance Narrative Exam: Gen: AAOx3. NAD CV: S1, S2+ resp: even and unlabored Abd: soft, very distended, NT. Incisional hernia soft and NT. Tympanitic Ext: no c/c/e - Labs 05/03/18 04:52 05/07/18 07:34 Diabetes panel 05/07/18 Range/Units 07:34 Sodium 141 (137-145) mmol/L Potassium 4.3 (3.6-5.0) mmol/L Chloride 100.0 (98-107) mmol/L Carbon Dioxide 23 (22-30) mmol/L BUN 96 H (7-17) mg/dL Creatinine 3.5 H (0.7-1.2) mg/dL Glucose 128 H (65-100) mg/dL Calcium 8.1 L (8.4-10.2) mg/dL Calcium panel 05/07/18 Range/Units 07:34 Calcium 8.1 L (8.4-10.2) mg/dL Pituitary panel 05/07/18 Range/Units 07:34 Sodium 141 (137-145) mmol/L Potassium 4.3 (3.6-5.0) mmol/L Chloride 100.0 (98-107) mmol/L Carbon Dioxide 23 (22-30) mmol/L BUN 96 H (7-17) mg/dL Creatinine 3.5 H (0.7-1.2) mg/dL Glucose 128 H (65-100) mg/dL Calcium 8.1 L (8.4-10.2) mg/dL Adrenal panel 05/07/18 Range/Units 07:34 Sodium 141 (137-145) mmol/L Potassium 4.3 (3.6-5.0) mmol/L Chloride 100.0 (98-107) mmol/L Carbon Dioxide 23 (22-30) mmol/L BUN 96 H (7-17) mg/dL Creatinine 3.5 H (0.7-1.2) mg/dL Glucose 128 H (65-100) mg/dL Calcium 8.1 L (8.4-10.2) mg/dL
--- NOTE | 2018-05-07 14:08 | Progress Note ---
Assessment and Plan - Patient Problems (1) Acute renal failure Current Visit: Yes Status: Acute Plan to address problem: Acute renal failure:severe and worsening KDIGO Stage 3 Baseline creatinine was 0.7 mg/DL in April 2017 Creatinine was 1.2 mg/DL in December 2017 Creatinine was 2.3 milligrams/DL in March 2018 and peak creatinine greater than 4.3 mg/DL CT abdomen without evidence of hydronephrosis I reviewed an ultrasound right kidney 9.2 x 4.5 cm with cortex 1.3 cm left kidney 9.4 x 4.4 cm cortex 1.4 cm bilaterally echogenic without hydronephrosis She has received 6 cycles of carboplatin and paclitaxel I reviewed urinalysis minimal proteinuria about 300 mg/g of creatinine without hematuria Etiology of acute renal failure is likely secondary to tubular injury secondary to carboplatin and paclitaxel which are known nephrotoxic agents Renal function has likely been worsening since December she appears to have received additional carboplatin and paclitaxel resulted in worsening injury and reports her last chemotherapy was 10 weeks ago She received multiple doses of chemotherapy and her creatinine has been steadily rising from her previous baseline of 0.7 She tells me she is no longer receiving chemotherapy I discussed with her in detail definitive diagnosis would be by renal biopsy however given her overall clinical status the risk outweigh benefits Also given the timeline of her worsening renal function is most probable that her injury is secondary to carboplatin and paclitaxel This can be a rather prolonged renal failure and given superimposed nausea vomiting and dehydration this may not resolve She is agreeable to hemodialysis and was to keep on lifesaving measures if her renal function continues to decline We'll hold off hemodialysis Change fluids normal saline at 125 mL per hour Strict inputs and output Avoid nephro toxic medications (2) Chronic systolic (congestive) heart failure Current Visit: Yes Status: Acute Plan to address problem: Chronic systolic congestive heart failure I reviewed echocardiogram which showed reduced left ventricular ejection fraction 35-40% and also diastolic dysfunction Gentle hydration No evidence of acute decompensation (3) 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 Current Visit: Yes Status: Acute Plan to address problem: metastatic neoplasm to ovary Patient with stage IV ovarian cancer has completed 6 cycles of carboplatin and paclitaxel now with renal dysfunction Hematology oncology following (4) Anemia Current Visit: Yes Status: Chronic Plan to address problem: Moderate anemia hemoglobin 9.1 g per DL Etiology is likely secondary to malignancy Monitor CBC Subjective Principal diagnosis: ovarian cancer Interval history: 67-year-old lady with medical history significant for congestive heart failure with combined systolic and diastolic dysfunction, stage IV ovarian cancer received 6 cycles of carboplatin and Taxol admitted with worsening renal function Patient was seen today requesting dialysis family member at bedside Extensive discussion with the patient and her family member regarding the role of dialysis in management of renal failure I discussed her renal function significantly. However she is nonoliguric and does not have any acute electrolyte abnormalities intradialytic hypotension can actually make her renal function worse we will hold off dialysis unless there is an acute indication She complains of persistent nausea and poor oral intake she has some abdominal distention and some lower extremity swelling Objective - Vital Signs Vital signs: Vital Signs - 12hr 05/07/18 05/07/18 05/07/18 03:07 06:31 07:01 Temperature 97.5 F L Pulse Rate 101 H Respiratory 18 22 18 Rate Blood Pressure 113/76 O2 Sat by Pulse 95 Oximetry 05/07/18 09:26 Temperature 97.4 F L Pulse Rate Respiratory 20 Rate Blood Pressure 125/82 O2 Sat by Pulse Oximetry - General Appearance General appearance: appears stated age, frail, anxious EENT: ATNC, PERRL Neck: no JVD, no thyromegaly, supple Respiratory: Present: Clear to Ascultation Cardiology: regular, S1S2 Gastrointestinal: normoactive bowel sounds, tenderness, distended, organomegaly Integumentary: no rash Neurologic: alert and oriented x3, CN 3-12 intact Musculoskeletal: deferred, other (extremity ; grade 1-2 edema. ) Psychiatric: agitated, cooperative - Lab 05/03/18 04:52 05/07/18 07:34 Most recent lab results Calcium 8.1 mg/dL (8.4-10.2) L 05/07/18 07:34 Magnesium 2.50 mg/dL (1.7-2.3) H 05/06/18 14:37 Urine Creatinine 156.1 mg/dL (0.1-20.0) H 04/28/18 Unknown Urine Sodium 10 mmol/L 04/28/18 Unknown Urine Total Protein 55 mg/dL (5-11.8) H 04/28/18 Unknown - Imaging CT scan - abdomen: other (I reviewed his abdomen did not show any hydronephr osis) Medications & Allergies - Medications Allergies/Adverse Reactions: Allergies lisinopril Allergy (Verified 04/28/18 12:20) Swelling Home Medications: Home Medications Medication Instructions Recorded Confirmed Last Taken Type Cod Liver Oil 1 each PO DAILY 06/07/17 04/28/18 04/20/18 History Ergocalciferol(Vitamin D2)(Nf) 400 unit PO DAILY 06/07/17 04/28/18 04/26/18 10:00 History [Vitamin D (Nf)] One Daily Multivitamin Tablet 1 tab PO DAILY 06/07/17 04/28/18 04/26/18 21:00 History amLODIPine [Norvasc] 10 mg PO DAILY 06/07/17 04/28/18 04/26/18 21:00 History hydroCHLOROthiazide [HCTZ] 12.5 mg PO DAILY 06/07/17 04/28/18 04/26/18 10:00 History Apixaban [Eliquis] 5 mg PO DAILY 04/16/18 04/28/18 04/23/18 21:00 History Active Medications: Generic Name Dose Route Start Last Admin Trade Name Freq PRN Reason Stop Dose Admin Amiodarone HCl 200 mg 05/07/18 13:00 Cordarone PO BID CATHI Apixaban 5 mg 05/06/18 22:00 05/07/18 11:06 Eliquis PO 5 mg Q12HR CATHI Administration Protocol Amiodarone HCl 900 mg/ 500 mls @ 33.333 mls/hr 05/06/18 15:00 05/06/18 23:02 Dextrose IV 05/08/18 01:00 0.5 mg/min DIRECT CATHI 16.667 mls/hr Titration Protocol 1 MG/MIN Sodium Chloride 1,000 mls @ 125 mls/hr 05/07/18 09:00 05/07/18 11:13 Nacl 0.9% 1000 Ml IV 125 mls/hr DIRECT CATHI Administration Metoclopramide HCl 5 mg 04/28/18 12:43 05/07/18 06:30 Reglan IV 5 mg Q6H PRN Administration Nausea And Vomiting Metoprolol Tartrate 25 mg 05/07/18 22:00 Lopressor PO BID CATHI Morphine Sulfate 2 mg 04/28/18 12:21 05/07/18 06:31 Morphine IV 2 mg Q3H PRN Administration Pain, Moderate (4-6) Ondansetron HCl 4 mg 04/28/18 12:22 05/06/18 15:28 Zofran IV 4 mg Q8H PRN Administration N/V unrelieved by Sebastian Pantoprazole Sodium 40 mg 05/03/18 10:00 05/07/18 11:06 Protonix PO 40 mg DAILY CATHI Administration Phenol 1 spray 05/03/18 14:20 Chloraseptic MM PRN PRN Sore Throat
[2018-05-07] MEDS: CORDARONE PO SCH ×2 (14:43→22:17)
--- NOTE | 2018-05-07 16:11 | XRay Report ---
PROCEDURE: XR ABDOMEN 1V AP TECHNIQUE: Supine views of the abdomen HISTORY: NEW NG TUBE PLACEMENT COMPARISONS: Abdomen x-ray 05/03/2018, CT A/P 04/28/2018 . FINDINGS: There is a nasogastric tube in place but it terminates in the distal esophagus. This should be advanc ed into the proximal stomach. There is mild gaseous distention of several small bowel loops centrally with relative possibly of bow el gas in the colon. These findings can be associated with partial small bowel obstruction as seen pr eviously. No free air is identified. Soft tissues have no evidence for mass shadows or calcifications . The bony structures are intact. IMPRESSION: Nasogastric tube terminates in the distal esophagus but should be advanced into the stomach This document is electronically signed by Ivonne Chávez MD., May 07 2018 04:09:16 PM ET
--- NOTE | 2018-05-07 18:51 | XRay Report ---
PROCEDURE: Abdomen. TECHNIQUE: Portable supine AP view. HISTORY: Nasogastric tube placement. COMPARISONS: Abdominal series 05/03/2018. FINDINGS: A nasogastric tube enters the stomach. There are some moderately dilated loops of small bowel in the central abdomen. The soft tissues are unremarkable. IMPRESSION: Satisfactory nasogastric tube placement. This document is electronically signed by Troy Glynn MD., May 07 2018 06:48:18 PM ET
[2018-05-07] MEDS: LOPRESSOR PO SCH (22:18)
[2018-05-08] MEDS: MORPHINE IV PRN (01:08)
[2018-05-08] MEDS: REGLAN IV PRN (01:08)
[2018-05-08] MEDS: NACL 0.9% 1000 ML 1,000 ML IV SCH ×2 (02:41→09:38)
--- NOTE | 2018-05-08 08:19 | Hem/Onc Progress Note ---
Assessment and Plan 1. Metastatic ovarian cancer. 2. The patient was with Dr. Gill, had undergone hysterectomy. It appears the patient received 6 cycles of carboplatin and Taxol. She is not on any oral agent. She also received radiation to the abdomen and there is a plan to go to [facility] oncologist. She does not know the name of the oncologist. I asked her if this is [facility] or [facility], the patient was not sure. 3. History of deep venous thrombosis in the neck. The patient was on Eliquis. This has been held. 4. Bowel obstruction. Surgical team is following the patient. 5. The patient was n.p.o. Now, there is plan for liquid diet. She is having flatus. 6. Anemia. MCV is normal. This may be tumor related. 7. Renal impairment. Nephrology team is following the patient. 8. Hysterectomy in the past. 9. The radiologist mentioned lymph nodes in the abdomen. 10. CA-125. I discussed with her regarding oral agents. I will help her during an inpatient status and then she will see the [facility], with whom she was supposed to have the first visit this week. She will call them for an appointment. 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 ID consult - ? 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 Current Visit: Yes Status: Acute Subjective Date of service: 05/08/18 Principal diagnosis: uterine ca Interval history: niece - looking into transfer to [facility] Objective - Constitutional Vitals: Last Vital Signs Temp 97.5 F L 05/08/18 04:17 Pulse 105 H 05/08/18 04:17 Resp 20 05/08/18 04:17 BP 140/80 05/08/18 04:17 Pulse Ox 98 05/08/18 04:17 Pain Intensity (0-10): denies any pain General appearance: mild distress (NGT) Performance status: 3-limited selfcare - EENT Eyes: EOM intact ENT: other (NGT) Lymph node exam: negative cervical - Neck Neck: supple - Respiratory Respiratory effort: Positive: normal Respiratory: bilateral: CTA - Cardiovascular Heart Sounds: Present: S1 & S2 Extremity abnormal: edema - Gastrointestinal General gastrointestinal: Present: soft, distended Rectal Exam: deferred - Genitourinary Female genitourinary: Present: deferred - Integumentary Integumentary: warm - Musculoskeletal Musculoskeletal: generalized weakness - Neurologic Neurologic: moves all extremities - Labs Lab Results: Laboratory Results - last 24 hr 05/07/18 07:34 Sodium 141 Potassium 4.3 Chloride 100.0 Carbon Dioxide 23 Anion Gap 22 BUN 96 H Creatinine 3.5 H Estimated GFR 16 BUN/Creatinine Ratio 27 Glucose 128 H Calcium 8.1 L Medications & Allergies - Medications Allergies/Adverse Reactions: Allergies lisinopril Allergy (Verified 04/28/18 12:20) Swelling Home Medications: Home Medications Medication Instructions Recorded Confirmed Last Taken Type Cod Liver Oil 1 each PO DAILY 06/07/17 04/28/18 04/20/18 History Ergocalciferol(Vitamin D2)(Nf) 400 unit PO DAILY 06/07/17 04/28/18 04/26/18 10:00 History [Vitamin D (Nf)] One Daily Multivitamin Tablet 1 tab PO DAILY 06/07/17 04/28/18 04/26/18 21:00 History amLODIPine [Norvasc] 10 mg PO DAILY 06/07/17 04/28/18 04/26/18 21:00 History hydroCHLOROthiazide [HCTZ] 12.5 mg PO DAILY 06/07/17 04/28/18 04/26/18 10:00 History Apixaban [Eliquis] 5 mg PO DAILY 04/16/18 04/28/18 04/23/18 21:00 History Active Medications: Generic Name Dose Route Start Last Admin Trade Name Freq PRN Reason Stop Dose Admin Amiodarone HCl 200 mg 05/07/18 13:00 05/07/18 22:17 Cordarone PO 200 mg BID CATHI Administration Apixaban 5 mg 05/06/18 22:00 05/07/18 22:18 Eliquis PO 5 mg Q12HR CATHI Administration Protocol Sodium Chloride 1,000 mls @ 125 mls/hr 05/07/18 09:00 05/08/18 02:41 Nacl 0.9% 1000 Ml IV 125 mls/hr DIRECT CATHI Administration Metoclopramide HCl 5 mg 04/28/18 12:43 05/08/18 01:08 Reglan IV 5 mg Q6H PRN Administration Nausea And Vomiting Metoprolol Tartrate 25 mg 05/07/18 22:00 05/07/18 22:18 Lopressor PO 25 mg BID CATHI Administration Morphine Sulfate 2 mg 04/28/18 12:21 05/08/18 01:08 Morphine IV 2 mg Q3H PRN Administration Pain, Moderate (4-6) Ondansetron HCl 4 mg 04/28/18 12:22 05/06/18 15:28 Zofran IV 4 mg Q8H PRN Administration N/V unrelieved by Reglan Pantoprazole Sodium 40 mg 05/03/18 10:00 05/07/18 11:06 Protonix PO 40 mg DAILY CATHI Administration Phenol 1 spray 05/03/18 14:20 Chloraseptic MM PRN PRN Sore Throat
[2018-05-08 09:33] LABS: Calcium 8.2 mg/dL (8.4-10.2)
[2018-05-08] MEDS: CORDARONE PO SCH ×2 (09:34→23:19)
[2018-05-08] MEDS: PROTONIX PO SCH (09:34)
[2018-05-08] MEDS: LOPRESSOR PO SCH ×2 (09:34→23:19)
[2018-05-08] MEDS: ELIQUIS PO SCH ×2 (09:34→23:19)
[2018-05-08] MEDS ORDERED: ZOFRAN IV PRN (10:55)
--- NOTE | 2018-05-08 11:33 | Progress Note ---
Assessment and Plan Pt remains in SR. Cont present cardiac management. Nothing further to add from cardiac perspective at this time. Will follow on as needed basis. The patient has been seen in conjunction with Dr. Mendez who agrees with the assessment and plan of care. 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 Current Visit: Yes Status: Acute (4) Small bowel obstruction Current Visit: Yes Status: Acute (5) Atrial fibrillation with RVR Current Visit: Yes Status: Acute (6) Anemia Current Visit: Yes Status: Chronic (7) Hypertension Current Visit: Yes Status: Chronic (8) Pleural effusion, left Current Visit: Yes Status: Acute (9) Status post chemotherapy Current Visit: Yes Status: Chronic (10) S/P radiotherapy Current Visit: Yes Status: Chronic (11) S/P [id number] (total abdominal hysterectomy and bilateral salpingo- oophorectomy) Current Visit: Yes Status: Chronic (12) LV dysfunction Current Visit: Yes Status: Acute Subjective Date of service: 05/08/18 Principal diagnosis: uterine ca Interval history: pt resting in bed, no current cardiac complaints. in SR on telemetry. Objective Last Vital Signs Temp 97.6 F 05/08/18 08:00 Pulse 106 H 05/08/18 08:00 Resp 20 05/08/18 08:00 BP 142/81 05/08/18 08:00 Pulse Ox 99 05/08/18 08:00 - Physical Examination General: Other (appears chronically ill) HEENT: Positive: PERRL, EOMI Neck: Positive: neck supple, trachea midline Cardiac: Positive: Reg Rate and Rhythm, S1/S2 Lungs: Positive: Decreased Breath Sounds Abdomen: Positive: Soft, Active Bowel Sounds, Ascites Skin: Negative: Rash Musculoskeletal: No Fluid Collection, No Pain, Normal Range of Motion Extremities: Present: normal, upper extr. pulses, lower extr. pulses, +1 Edema (Bilateral) - Labs and Meds Comprehensive Metabolic Panel 05/08/18 Range/Units 08:41 Sodium 143 (137-145) mmol/L Potassium 4.5 (3.6-5.0) mmol/L Chloride 104.0 (98-107) mmol/L Carbon Dioxide 20 L (22-30) mmol/L BUN 99 H (7-17) mg/dL Creatinine 3.7 H (0.7-1.2) mg/dL Glucose 101 H (65-100) mg/dL Calcium 8.2 L (8.4-10.2) mg/dL - Imaging and Cardiology EKG: report reviewed, image reviewed Echo: report reviewed, image reviewed
--- NOTE | 2018-05-08 12:39 | Progress Note ---
Assessment and Plan - Patient Problems (1) Acute renal failure Current Visit: Yes Status: Acute Plan to address problem: Acute renal failure:severe and worsening KDIGO Stage 3 Baseline creatinine was 0.7 mg/DL in April 2017 Creatinine was 1.2 mg/DL in December 2017 Creatinine was 2.3 milligrams/DL in March 2018 and peak creatinine greater than 4.3 mg/DL CT abdomen without evidence of hydronephrosis I reviewed an ultrasound right kidney 9.2 x 4.5 cm with cortex 1.3 cm left kidney 9.4 x 4.4 cm cortex 1.4 cm bilaterally echogenic without hydronephrosis She has received 6 cycles of carboplatin and paclitaxel I reviewed urinalysis minimal proteinuria about 300 mg/g of creatinine without hematuria Etiology of acute renal failure is likely secondary to tubular injury secondary to carboplatin and paclitaxel which are known nephrotoxic agents Renal function has likely been worsening since December she appears to have received additional carboplatin and paclitaxel resulted in worsening injury and reports her last chemotherapy was 10 weeks ago She received multiple doses of chemotherapy and her creatinine has been steadily rising from her previous baseline of 0.7 She tells me she is no longer receiving chemotherapy I discussed with her in detail definitive diagnosis would be by renal biopsy however given her overall clinical status the risk outweigh benefits Also given the timeline of her worsening renal function is most probable that her injury is secondary to carboplatin and paclitaxel This can be a rather prolonged renal failure and given superimposed nausea vomiting and dehydration this may not resolve She is emphatic that she will want hemodialysis and to keep on lifesaving measures if her renal function continues to decline Risks and benefits and procedure discussed with the patient Case discussed with vascular surgery will likely tunneled catheter placement tomorrow if renal function continues to worsen Change fluids to bicarbonate infusion at 100 mL per hour Strict inputs and output Avoid nephro toxic medications (2) Chronic systolic (congestive) heart failure Current Visit: Yes Status: Acute Plan to address problem: Chronic systolic congestive heart failure I reviewed echocardiogram which showed reduced left ventricular ejection fraction 35-40% and also diastolic dysfunction Gentle hydration No evidence of acute decompensation (3) 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 Subjective Principal diagnosis: uterine ca Interval history: 67-year-old lady with medical history significant for congestive heart failure with combined systolic and diastolic dysfunction, stage IV ovarian cancer received 6 cycles of carboplatin and Taxol admitted with worsening renal function Patient was seen today She is upset about having an NG tube in place had significant nausea yesterday I had another Extensive discussion with the patient and her niece at bedside ultimately her renal function is not improving she wants all measures done and we may have to proceed with dialysis in the morning unless her renal function improves I have asked the nurse to place a [place] at bedside Objective - Vital Signs Vital signs: Vital Signs - 12hr 05/08/18 05/08/18 05/08/18 01:00 01:08 01:10 Temperature Pulse Rate Pulse Rate [ 118 H Apical] Respiratory 20 20 Rate Respiratory 20 Rate [Abdomen] Blood Pressure Blood Pressure [Right] O2 Sat by Pulse 98 Oximetry 05/08/18 05/08/18 05/08/18 01:38 04:17 08:00 Temperature 97.5 F L 97.6 F Pulse Rate 105 H 106 H Pulse Rate [ Apical] Respiratory 20 20 20 Rate Respiratory Rate [Abdomen] Blood Pressure 140/80 Blood Pressure 142/81 [Right] O2 Sat by Pulse 98 99 Oximetry 05/08/18 12:00 Temperature 97.9 F Pulse Rate 106 H Pulse Rate [ Apical] Respiratory 20 Rate Respiratory Rate [Abdomen] Blood Pressure Blood Pressure 125/78 [Right] O2 Sat by Pulse 100 Oximetry - General Appearance General appearance: obese, chronically ill, anxious EENT: ATNC, PERRL, mucous membranes dry Neck: no JVD Respiratory: Present: Clear to Ascultation, Normal Exam Cardiology: regular, S1S2, other (grade 1 edema) Gastrointestinal: hypoactive bowel sounds, tenderness, distended Integumentary: no rash Neurologic: alert and oriented x3, CN 3-12 intact Musculoskeletal: deferred Psychiatric: agitated - Lab 05/03/18 04:52 05/08/18 08:41 Most recent lab results Calcium 8.2 mg/dL (8.4-10.2) L 05/08/18 08:41 Magnesium 2.50 mg/dL (1.7-2.3) H 05/06/18 14:37 Urine Creatinine 156.1 mg/dL (0.1-20.0) H 04/28/18 Unknown Urine Sodium 10 mmol/L 04/28/18 Unknown Urine Total Protein 55 mg/dL (5-11.8) H 04/28/18 Unknown - Imaging CT scan - abdomen: image reviewed Medications & Allergies - Medications Allergies/Adverse Reactions: Allergies lisinopril Allergy (Verified 04/28/18 12:20) Swelling Home Medications: Home Medications Medication Instructions Recorded Confirmed Last Taken Type Cod Liver Oil 1 each PO DAILY 06/07/17 04/28/18 04/20/18 History Ergocalciferol(Vitamin D2)(Nf) 400 unit PO DAILY 06/07/17 04/28/18 04/26/18 10:00 History [Vitamin D (Nf)] One Daily Multivitamin Tablet 1 tab PO DAILY 06/07/17 04/28/18 04/26/18 21:00 History amLODIPine [Norvasc] 10 mg PO DAILY 06/07/17 04/28/18 04/26/18 21:00 History hydroCHLOROthiazide [HCTZ] 12.5 mg PO DAILY 06/07/17 04/28/18 04/26/18 10:00 History Apixaban [Eliquis] 5 mg PO DAILY 04/16/18 04/28/18 04/23/18 21:00 History Active Medications: Generic Name Dose Route Start Last Admin Trade Name Freq PRN Reason Stop Dose Admin Amiodarone HCl 200 mg 05/07/18 13:00 05/08/18 09:34 Cordarone PO 200 mg BID CATHI Administration Apixaban 5 mg 05/06/18 22:00 05/08/18 09:34 Eliquis PO 5 mg Q12HR CATHI Administration Protocol Sodium Bicarbonate 150 meq/ 1,150 mls @ 100 mls/hr 05/08/18 13:00 Dextrose IV DIRECT CATHI Metoprolol Tartrate 25 mg 05/07/18 22:00 05/08/18 09:34 Lopressor PO 25 mg BID CATHI Administration Morphine Sulfate 2 mg 04/28/18 12:21 05/08/18 01:08 Morphine IV 2 mg Q3H PRN Administration Pain, Moderate (4-6) Ondansetron HCl 4 mg 05/08/18 10:55 Zofran IV Q6H PRN Nausea Pantoprazole Sodium 40 mg 05/03/18 10:00 05/08/18 09:34 Protonix PO 40 mg DAILY CATHI Administration Phenol 1 spray 05/03/18 14:20 Chloraseptic MM PRN PRN Sore Throat
--- NOTE | 2018-05-08 13:34 | Progress Note ---
Assessment and Plan 67 yo F with 1. 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 metastatic papillary endometrial endometrial cancer 3. ascites s/p paracentesis 4. TIARRA secondary to volume depletion Ct Scan A/P compared to Ct scan A/P from Mar 2018. Bowel loop appearance is similar. Ascites has reaccumulated. Radiology report notes concerns for omental caking and peritoneal studding. Obstruction series 05/03: pSBO Abd xray 05/07 - likely pSBO Plan: Pt stable with clinical improvement of symptoms with NGT. Abdomen is benign and much less distended today. Unfortunately NGT output not recorded since p lacement. Currently drainage is clear brown and not bilious. 1. c/w NPO 2. IVF 3. maintain NGT to LI. 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 oncology and nephro on board 6. prn pain and nausea control 7. DVT ppx 8. BMP daily - replace lytes as needed I explained results of abdominal xray performed yesterday to patient and her niece at the bedside. I explained the plan once again. The patient is apparently being transferred to [place] and has acquired and accepting physician. Subjective Date of service: 05/08/18 Narrative: Pt seen and examined. States she is feeling better. No flatus or BM. No n/v since NGT placed yesterday. No abdominal pain. No f/c. Objective Vital Signs - 12hr 05/08/18 05/08/18 05/08/18 01:38 04:17 08:00 Temperature 97.5 F L 97.6 F Pulse Rate 105 H 106 H Respiratory 20 20 20 Rate Blood Pressure 140/80 Blood Pressure 142/81 [Right] O2 Sat by Pulse 98 99 Oximetry 05/08/18 12:00 Temperature 97.9 F Pulse Rate 106 H Respiratory 20 Rate Blood Pressure Blood Pressure 125/78 [Right] O2 Sat by Pulse 100 Oximetry - General physical appearance Narrative Exam: Gen; AAOx3. NAD ENT: NGT with clear brown drainage CV: S1, S2+ Resp; even and unlabored Abd: soft, mildly distended, NT. Hernia soft Ext; no c/c/e - Labs 05/03/18 04:52 05/08/18 08:41 Diabetes panel 05/08/18 Range/Units 08:41 Sodium 143 (137-145) mmol/L Potassium 4.5 (3.6-5.0) mmol/L Chloride 104.0 (98-107) mmol/L Carbon Dioxide 20 L (22-30) mmol/L BUN 99 H (7-17) mg/dL Creatinine 3.7 H (0.7-1.2) mg/dL Glucose 101 H (65-100) mg/dL Calcium 8.2 L (8.4-10.2) mg/dL Calcium panel 05/08/18 Range/Units 08:41 Calcium 8.2 L (8.4-10.2) mg/dL Pituitary panel 05/08/18 Range/Units 08:41 Sodium 143 (137-145) mmol/L Potassium 4.5 (3.6-5.0) mmol/L Chloride 104.0 (98-107) mmol/L Carbon Dioxide 20 L (22-30) mmol/L BUN 99 H (7-17) mg/dL Creatinine 3.7 H (0.7-1.2) mg/dL Glucose 101 H (65-100) mg/dL Calcium 8.2 L (8.4-10.2) mg/dL Adrenal panel 05/08/18 Range/Units 08:41 Sodium 143 (137-145) mmol/L Potassium 4.5 (3.6-5.0) mmol/L Chloride 104.0 (98-107) mmol/L Carbon Dioxide 20 L (22-30) mmol/L BUN 99 H (7-17) mg/dL Creatinine 3.7 H (0.7-1.2) mg/dL Glucose 101 H (65-100) mg/dL Calcium 8.2 L (8.4-10.2) mg/dL
[2018-05-08] MEDS: SODIUM BICARBONATE 150 MEQ in D5W 1,000 ML IV SCH (14:12)
--- NOTE | 2018-05-08 16:49 | Event Note ---
Date: 05/08/18 Called to Evaluate pt for HD access/PC placement. We spoke to pt. She states that she has reconsidered, and does not want to proceed with HD. I discussed what was involved with PC placement in the event she changed her mind. She states understanding, but again confirms she does not want HD. Encouraged the pt to discuss this with her grooming assistant. We will see the pt again as needed.
--- NOTE | 2018-05-08 18:39 | Progress Note ---
Assessment and Plan Assessment and plan: 67-year-old woman with past medical history of stage IV, recurrence papillary serous endometrial carcinoma. She is status post hysterectomy, has received multiple rounds of chemotherapy and radiation therapy. She has just established with Dr. Palacio should be seen for ongoing chemotherapy. She presented with nausea vomiting abdominal tightness and weakness. The patient has received paracentesis, 3.5 L of fluid have been removed. -Diagnosis Small bowel obstruction Multiple intra-abdominal adhesions and seeding of malignancy in the abdomen Acute on chronic kidney disease, she suffered toxicity from chemotherapy to her kidneys Stage IV endometrial carcinoma Malignant ascites Atrial fibrillation with RVR Hypercoagulable states Large right pleural effusion Acute on chronic systolic CHF EF 40% Plan Continue IV fluids, continue NG to nasal suction, advance diet when okayed by general surgery Nephrology appreciated, avoid nephrotoxins Oncology inputs appreciated Rate control medications ordered, cardiology input appreciated, optimizing rate control medications, she was restarted on eliquis The patient would like to get better and follow up with Dr. Palacio for chemotherapy, but is currently her goal -The patient has been offered hemodialysis, she is currently not interested in HD at this time DVT prophylaxis; chemical The patient and her family wanted her transferred to [facility], they are speaking to the physicians at [facility] and will report back to us tomorrow History Interval history: Review of systems Constitutional: No fevers, no malaise, no joint pains CVS: No chest pain, no orthopnea, no dyspnea on exertion, no pedal edema GI: She complains of intermittent abdominal pain nausea and vomiting Respiratory: No shortness of breath, no wheezing, no coughing Hospitalist Physical - Physical exam Narrative exam: General.: Appears well, no distress, nontoxic HEENT: Moist mucous membranes, extraocular muscles intact, no lymphadenopathy Neck: supple Cardiac: S1-S2 heard Lungs: Dullness of the right mid and lower lung Abdomen: soft , nontender, nondistended, bowel sounds positive Extremities: no edema clubbing or cyanosis Skin: no rash or lesions Neurologic: no gross focal deficits Psych: calm, and cooperative - Constitutional Vitals: Temp Pulse Resp BP Pulse Ox 97.5 F L 115 H 20 125/71 97 05/08/18 16:00 05/08/18 16:00 05/08/18 16:00 05/08/18 16:00 05/08/18 16:00 General appearance: Present: no acute distress Results - Labs CBC & Chem 7: 05/03/18 04:52 05/08/18 08:41 Labs: Laboratory Last Values WBC 12.1 K/mm3 (4.5-11.0) H 05/03/18 04:52 RBC 3.28 M/mm3 (3.65-5.03) L 05/03/18 04:52 Hgb 9.0 gm/dl (10.1-14.3) L 05/03/18 04:52 Hct 27.3 % (30.3-42.9) L 05/03/18 04:52 MCV 83 fl (79-97) 05/03/18 04:52 MCH 27 pg (28-32) L 05/03/18 04:52 MCHC 33 % (30-34) 05/03/18 04:52 RDW 19.3 % (13.2-15.2) H 05/03/18 04:52 Plt Count 352 K/mm3 (140-440) 05/03/18 04:52 Lymph % (Auto) 3.7 % (13.4-35.0) L 05/03/18 04:52 [place] % (Auto) 8.3 % (0.0-7.3) H 05/03/18 04:52 Eos % (Auto) 0.1 % (0.0-4.3) 05/03/18 04:52 Baso % (Auto) 0.0 % (0.0-1.8) 05/03/18 04:52 Lymph # 0.4 K/mm3 (1.2-5.4) L 05/03/18 04:52 [place] # 1.0 K/mm3 (0.0-0.8) H 05/03/18 04:52 Eos # 0.0 K/mm3 (0.0-0.4) 05/03/18 04:52 Baso # 0.0 K/mm3 (0.0-0.1) 05/03/18 04:52 Seg Neutrophils % 87.9 % (40.0-70.0) H 05/03/18 04:52 Seg Neutrophils # 10.7 K/mm3 (1.8-7.7) H 05/03/18 04:52 PT 16.3 Sec. (12.2-14.9) H 04/28/18 04:16 INR 1.23 (0.87-1.13) H 04/28/18 04:16 Sodium 143 mmol/L (137-145) 05/08/18 08:41 Potassium 4.5 mmol/L (3.6-5.0) 05/08/18 08:41 Chloride 104.0 mmol/L (98-107) 05/08/18 08:41 Carbon Dioxide 20 mmol/L (22-30) L 05/08/18 08:41 Anion Gap 24 mmol/L 05/08/18 08:41 BUN 99 mg/dL (7-17) H 05/08/18 08:41 Creatinine 3.7 mg/dL (0.7-1.2) H 05/08/18 08:41 Estimated GFR 15 ml/min 05/08/18 08:41 BUN/Creatinine Ratio 27 % 05/08/18 08:41 Glucose 101 mg/dL (65-100) H 05/08/18 08:41 POC Glucose 122 (70-105) H 05/06/18 08:12 Osmolality 324 Mosm/kg 04/28/18 14:47 Uric Acid 16.8 mg/dL (3.5-7.6) H 04/28/18 14:47 Calcium 8.2 mg/dL (8.4-10.2) L 05/08/18 08:41 Magnesium 2.50 mg/dL (1.7-2.3) H 05/06/18 14:37 Iron 21 ug/dL (37-170) L 05/03/18 04:52 TIBC 143 mcg/dL (250-450) L 05/03/18 04:52 Ferritin 244.3 ng/mL (13.0-400.0) 05/03/18 04:52 Total Bilirubin 0.30 mg/dL (0.1-1.2) 04/27/18 21:46 AST 22 units/L (5-40) 04/27/18 21:46 ALT 11 units/L (7-56) 04/27/18 21:46 Alkaline Phosphatase 92 units/L (35-129) 04/27/18 21:46 Total Creatine Kinase 38 units/L (30-135) 04/28/18 04:16 Total Protein 6.8 g/dL (6.3-8.2) 04/27/18 21:46 Albumin 3.0 g/dL (3.9-5) L 04/27/18 21:46 Albumin/Globulin Ratio 0.8 % 04/27/18 21:46 CA 125 Antigen 1208 U/mL (<35) H 04/30/18 04:33 Vitamin B12 1451 pg/mL (211-911) H 05/03/18 04:52 Folate 18.07 ng/mL (7.3-26.0) 05/03/18 04:52 Urine Color Yellow (Yellow) 04/28/18 Unknown Urine Turbidity Slightly-cloudy (Clear) 04/28/18 Unknown Urine pH 5.0 (5.0-7.0) 04/28/18 Unknown Ur Specific [place] 1.015 (1.003-1.030) 04/28/18 Unknown Urine Protein 30 mg/dl mg/dL (Negative) 04/28/18 Unknown Urine Glucose (UA) Neg mg/dL (Negative) 04/28/18 Unknown Urine Ketones Neg mg/dL (Negative) 04/28/18 Unknown Urine Blood Neg (Negative) 04/28/18 Unknown Urine Nitrite Neg (Negative) 04/28/18 Unknown Urine Bilirubin Neg (Negative) 04/28/18 Unknown Urine Urobilinogen < 2.0 mg/dL (<2.0) 04/28/18 Unknown Ur Leukocyte Esterase Tr (Negative) 04/28/18 Unknown Urine WBC (Auto) 7.0 /HPF (0.0-6.0) H 04/28/18 Unknown Urine RBC (Auto) 2.0 /HPF (0.0-6.0) 04/28/18 Unknown U Epithel Cells (Auto) 2.0 /HPF (0-13.0) 04/28/18 Unknown Urine Bacteria (Auto) 1+ /HPF (Negative) 04/28/18 Unknown Ur Transition Epith Cell 2 /HPF 04/28/18 Unknown Urine Creatinine 156.1 mg/dL (0.1-20.0) H 04/28/18 Unknown Urine Sodium 10 mmol/L 04/28/18 Unknown Urine Total Protein 55 mg/dL (5-11.8) H 04/28/18 Unknown Immunofix Electrophor see below 04/28/18 14:47 Active Medications - Current Medications Current Medications: Generic Name Dose Route Start Last Admin Trade Name Freq PRN Reason Stop Dose Admin Amiodarone HCl 200 mg 05/07/18 13:00 05/08/18 09:34 Cordarone PO 200 mg BID CATHI Administration Apixaban 5 mg 05/06/18 22:00 05/08/18 09:34 Eliquis PO 5 mg Q12HR CATHI Administration Protocol Sodium Bicarbonate 150 meq/ 1,150 mls @ 100 mls/hr 05/08/18 13:00 05/08/18 14:12 Dextrose IV 100 mls/hr DIRECT CATHI Administration Metoprolol Tartrate 25 mg 05/07/18 22:00 05/08/18 09:34 Lopressor PO 25 mg BID CATHI Administration Morphine Sulfate 2 mg 04/28/18 12:21 05/08/18 01:08 Morphine IV 2 mg Q3H PRN Administration Pain, Moderate (4-6) Ondansetron HCl 4 mg 05/08/18 10:55 Zofran IV Q6H PRN Nausea Pantoprazole Sodium 40 mg 05/03/18 10:00 05/08/18 09:34 Protonix PO 40 mg DAILY CATHI Administration Phenol 1 spray 05/03/18 14:20 Chloraseptic MM PRN PRN Sore Throat Nutrition/Malnutrition Assess - Dietary Evaluation Nutrition/Malnutrition Findings: Nutrition Notes Start: 05/04/18 15:00 Freq: Status: Active Protocol: Document 05/07/18 17:38 OL (Rec: 05/07/18 17:44 OL [id number]) Nutrition Notes Initial or Follow up Reassessment Current Diagnosis Acute Kidney Injury,Small Bowel Obstruction Other Pertinent Diagnosis Metastatic endometrial cancer, Ascites, N/V Current Diet NPO Labs/Tests Reviewed Pertinent Medications Reviewed Height 5 ft 5 in Weight 67.245 kg [place] Body Weight (kg) 56.81 BMI 24.6 Subjective/Other Information NPO status continues. Pt. with partial SBO related to metastatic endometrial cancer. Pt. not currently receiving chemo. Pt. with NG tube to LIS . Burn Absent Trauma Absent #1 Nutrition Diagnosis Malnutrition Diagnosis Progress(for reassessment Continues documentation) Is patient on ventilator? No Is Patient Ambulatory and/or Out of Bed Yes REE-(Lanier-St. Jeor-ambulatory/OOB) [ 1557.829 [id number]] Calculation Used for Recommendations Lanier-St Jeor Additional Notes Protein Needs: 67-101g (1-1.5g /kg) Fluid Needs: 1 ml/kcal Nutrition Intervention Change Diet Order: Advance when medically able Goal #1 Diet advancement Follow-Up By: 05/09/18 Additional Comments f/u: diet advancement or NPO status/ consider TPN
[2018-05-09] MEDS: SODIUM BICARBONATE 150 MEQ in D5W 1,000 ML IV SCH (03:44)
[2018-05-09 06:40] LABS: Calcium 8.3 mg/dL (8.4-10.2)
--- NOTE | 2018-05-09 07:38 | Hem/Onc Progress Note ---
Assessment and Plan 1. Metastatic ovarian cancer. 2. The patient was with Dr. Gill, had undergone hysterectomy. It appears the patient received 6 cycles of carboplatin and Taxol. She is not on any oral agent. She also received radiation to the abdomen and there is a plan to go to [facility] oncologist. She does not know the name of the oncologist. I asked her if this is [facility] or [facility], the patient was not sure. 3. History of deep venous thrombosis in the neck. The patient was on Eliquis. This has been held. 4. Bowel obstruction. Surgical team is following the patient. 5. The patient was n.p.o. Now, there is plan for liquid diet. She is having flatus. 6. Anemia. MCV is normal. This may be tumor related. 7. Renal impairment. Nephrology team is following the patient. 8. Hysterectomy in the past. 9. The radiologist mentioned lymph nodes in the abdomen. 10. CA-125. I discussed with her regarding oral agents. I will help her during an inpatient status and then she will see the [facility], with whom she was supposed to have the first visit this week. She will call them for an appointment. paracentesis planned 05/02 - s/p paracentesis on 05/01 rt leg edema - DVT study pt has OP follow up with new oncologist mild anemia - def Ix 05/03 - d/w dr wilks - surgeon - as pt vomiting 05/04 - CA 125 high bowel obstruction - tumor vs adhesion related - pt on NGT suction - d/w RN 05/05 - d/w dr Palacio pt was seen on 04/11 in [facility] - pt has papillary serous adenocarcinoma - involving enometrium - and ovaries - diagnosed June 2017 and got chemo till nov 2017 then - pt had disease recurrence pts CA 125 was 400 in mar the CO was 20% +- Doxil and anti progestrone meds was an option genetic test was mentioned as negative h/o TB in LN - s/p Rx till Feb plan - d/w hospitalist - ? ID consult - ? trial with PARP inhibitor as the tumor is papillary serous and CA 125 is now >1200 trial as advanced ovarian pt is planning to go [place] I will see if I can get her samples of PARP inhibitor - the regualr dose is 600 mg BID for Rubraca - will look into 300 mg q 12 - once GI SBO better 3/17 diet progression as per sx team 05/07 - vomiting - d/w dr wilks once clinically stable - will start lower dose rubraca 05/08 - NGT - niece planning transfer to [place] doppler leg in recent past was neg for DVT Rubraca trial an option - as pt not keen for chemo and may go to [place] 05/09 - no BM - family looking into transfer to [place] - Patient Problems (1) 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 Current Visit: Yes Status: Acute Subjective Date of service: 05/09/18 Principal diagnosis: uterine ca Interval history: no BM Objective - Constitutional Vitals: Last Vital Signs Temp 97.3 F L 05/09/18 04:22 Pulse 110 H 05/09/18 04:22 Resp 20 05/09/18 04:22 BP 127/72 05/09/18 04:22 Pulse Ox 100 05/09/18 04:22 Pain Intensity (0-10): 1/10 General appearance: mild distress Performance status: 3-limited selfcare - EENT Eyes: EOM intact ENT: other (ngt) Lymph node exam: negative cervical - Neck Neck: normal ROM - Respiratory Respiratory effort: Positive: labored Respiratory: bilateral: diminished (poor effort) - Cardiovascular Heart Sounds: Present: S1 & S2 Extremity abnormal: edema - Gastrointestinal General gastrointestinal: Present: soft, non-tender Rectal Exam: deferred - Genitourinary Female genitourinary: Present: deferred - Integumentary Integumentary: warm - Musculoskeletal Musculoskeletal: generalized weakness - Neurologic Neurologic: moves all extremities - Labs Lab Results: Laboratory Results - last 24 hr 05/08/18 05/09/18 08:41 05:36 Sodium 143 143 Potassium 4.5 4.5 Chloride 104.0 100.8 Carbon Dioxide 20 L 26 Anion Gap 24 21 BUN 99 H 103 H Creatinine 3.7 H 3.8 H Estimated GFR 15 14 BUN/Creatinine Ratio 27 27 Glucose 101 H 147 H Calcium 8.2 L 8.3 L Medications & Allergies - Medications Allergies/Adverse Reactions: Allergies lisinopril Allergy (Verified 04/28/18 12:20) Swelling Home Medications: Home Medications Medication Instructions Recorded Confirmed Last Taken Type Cod Liver Oil 1 each PO DAILY 06/07/17 04/28/18 04/20/18 History Ergocalciferol(Vitamin D2)(Nf) 400 unit PO DAILY 06/07/17 04/28/18 04/26/18 10:00 History [Vitamin D (Nf)] One Daily Multivitamin Tablet 1 tab PO DAILY 06/07/17 04/28/18 04/26/18 21:00 History amLODIPine [Norvasc] 10 mg PO DAILY 06/07/17 04/28/18 04/26/18 21:00 History hydroCHLOROthiazide [HCTZ] 12.5 mg PO DAILY 06/07/17 04/28/18 04/26/18 10:00 History Apixaban [Eliquis] 5 mg PO DAILY 04/16/18 04/28/18 04/23/18 21:00 History Active Medications: Generic Name Dose Route Start Last Admin Trade Name Freq PRN Reason Stop Dose Admin Amiodarone HCl 200 mg 05/07/18 13:00 05/08/18 23:19 Cordarone PO 200 mg BID CATHI Administration Apixaban 5 mg 05/06/18 22:00 05/08/18 23:19 Eliquis PO 5 mg Q12HR CATHI Administration Protocol Sodium Bicarbonate 150 meq/ 1,150 mls @ 100 mls/hr 05/08/18 13:00 05/09/18 03:44 Dextrose IV 100 mls/hr DIRECT CATHI Administration Metoprolol Tartrate 25 mg 05/07/18 22:00 05/08/18 23:19 Lopressor PO 25 mg BID CATHI Administration Morphine Sulfate 2 mg 04/28/18 12:21 05/08/18 01:08 Morphine IV 2 mg Q3H PRN Administration Pain, Moderate (4-6) Ondansetron HCl 4 mg 05/08/18 10:55 Zofran IV Q6H PRN Nausea Pantoprazole Sodium 40 mg 05/03/18 10:00 05/08/18 09:34 Protonix PO 40 mg DAILY CATHI Administration Phenol 1 spray 05/03/18 14:20 Chloraseptic MM PRN PRN Sore Throat
[2018-05-09] MEDS: ELIQUIS PO SCH (09:54)
[2018-05-09] MEDS: PROTONIX PO SCH (09:54)
[2018-05-09] MEDS: CORDARONE PO SCH (09:54)
[2018-05-09] MEDS: LOPRESSOR PO SCH (09:54)
--- NOTE | 2018-05-09 12:10 | Progress Note ---
Assessment and Plan - Patient Problems (1) Acute renal failure Current Visit: Yes Status: Acute Plan to address problem: Acute renal failure:severe and worsening KDIGO Stage 3 Baseline creatinine was 0.7 mg/DL in April 2017 Creatinine was 1.2 mg/DL in December 2017 Creatinine was 2.3 milligrams/DL in March 2018 and peak creatinine greater than 4.3 mg/DL CT abdomen without evidence of hydronephrosis I reviewed an ultrasound right kidney 9.2 x 4.5 cm with cortex 1.3 cm left kidney 9.4 x 4.4 cm cortex 1.4 cm bilaterally echogenic without hydronephrosis She has received 6 cycles of carboplatin and paclitaxel I reviewed urinalysis minimal proteinuria about 300 mg/g of creatinine without hematuria Etiology of acute renal failure is likely secondary to tubular injury secondary to carboplatin and paclitaxel which are known nephrotoxic agents Renal function has likely been worsening since December she appears to have received additional carboplatin and paclitaxel resulted in worsening injury and reports her last chemotherapy was 10 weeks ago She received multiple doses of chemotherapy and her creatinine has been steadily rising from her previous baseline of 0.7 She tells me she is no longer receiving chemotherapy I discussed with her in detail definitive diagnosis would be by renal biopsy however given her overall clinical status the risk outweigh benefits Also given the timeline of her worsening renal function is most probable that her injury is secondary to carboplatin and paclitaxel This can be a rather prolonged renal failure and given superimposed nausea vomiting and dehydration this may not resolve She initially was emphatic that she wanted hemodialysis and to keep on lifesaving measures if her renal function continues to decline We consulted vascular surgery for tunneled catheter placement tomorrow however patient then decided against dialysis She is continuing to refuse dialysis This is reasonable given metastatic cancer however I emphasized her clinical condition is likely to worsen Discussed risk of complications and if her renal function and oliguria persists I will discontinue fluids given oxygen requirements and oliguria. Strict inputs and output Avoid nephro toxic medications (2) Chronic systolic (congestive) heart failure Current Visit: Yes Status: Acute Plan to address problem: Chronic systolic congestive heart failure I reviewed echocardiogram which showed reduced left ventricular ejection frac tion 35-40% and also diastolic dysfunction Increasing oxygen requirements and discontinue fluids No evidence of acute decompensation (3) 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 Current Visit: Yes Status: Acute Plan to address problem: metastatic neoplasm to ovary from Endometrial cancer Patient with stage IV cancer has completed 6 cycles of carboplatin and paclitaxel now with renal dysfunction Hematology oncology following (4) Anemia Current Visit: Yes Status: Chronic Plan to address problem: Moderate anemia hemoglobin 9.1 g per DL Etiology is likely secondary to malignancy Monitor CBC (5) Metabolic acidosis Current Visit: Yes Status: Acute Plan to address problem: Metabolic acidosis now resolved following initiation of HD 2/2 renal failure Will discontinue fluids. We will follow along with you for now. Patient is awaiting transfer to [place] once accepted. Thank you for this consultation Subjective Principal diagnosis: uterine ca Interval history: 67-year-old lady with medical history significant for congestive heart failure with combined systolic and diastolic dysfunction, Metastatic cancer from endometrial primary received 6 cycles of carboplatin and Taxol admitted with worsening renal function Patient was seen today She is now refusing dialysis Refused tunnel catheter placement yesterday I discussed with her current renal function I doubt oncology will be able to initiate any chemotherapy She tells me she will like to be transferred to [place] She again tells me she does not want any dialysis I discussed that if her renal function continues to worsen she can develop complication of renal failure she understands this as well She's currently on 2.5 L of oxygen Objective - Vital Signs Vital signs: Vital Signs - 12hr 05/09/18 05/09/18 05/09/18 03:00 04:22 08:50 Temperature 97.3 F L 98.0 F Pulse Rate 106 H 110 H 115 H Respiratory 20 18 Rate Blood Pressure 127/72 126/80 O2 Sat by Pulse 100 98 Oximetry - General Appearance General appearance: well-developed, well-nourished EENT: ATNC, PERRL, mucous membranes moist Neck: no JVD Respiratory: Present: Decreased Breath Sounds Cardiology: regular, S1S2 Gastrointestinal: tenderness, distended Integumentary: no rash Neurologic: alert and oriented x3 Musculoskeletal: other (grade 1 edema) Psychiatric: depressed - Lab 05/03/18 04:52 05/09/18 05:36 Most recent lab results Calcium 8.3 mg/dL (8.4-10.2) L 05/09/18 05:36 Magnesium 2.50 mg/dL (1.7-2.3) H 05/06/18 14:37 Urine Creatinine 156.1 mg/dL (0.1-20.0) H 04/28/18 Unknown Urine Sodium 10 mmol/L 04/28/18 Unknown Urine Total Protein 55 mg/dL (5-11.8) H 04/28/18 Unknown - Imaging Kidney/bladder ultrasound: other (I reviewed the ultrasound normal-sized kidneys without hydronephrosis) Medications & Allergies - Medications Allergies/Adverse Reactions: Allergies lisinopril Allergy (Verified 04/28/18 12:20) Swelling Home Medications: Home Medications Medication Instructions Recorded Confirmed Last Taken Type Cod Liver Oil 1 each PO DAILY 06/07/17 04/28/18 04/20/18 History Ergocalciferol(Vitamin D2)(Nf) 400 unit PO DAILY 06/07/17 04/28/18 04/26/18 10:00 History [Vitamin D (Nf)] One Daily Multivitamin Tablet 1 tab PO DAILY 06/07/17 04/28/18 04/26/18 21:00 History amLODIPine [Norvasc] 10 mg PO DAILY 06/07/17 04/28/18 04/26/18 21:00 History hydroCHLOROthiazide [HCTZ] 12.5 mg PO DAILY 06/07/17 04/28/18 04/26/18 10:00 History Apixaban [Eliquis] 5 mg PO DAILY 04/16/18 04/28/18 04/23/18 21:00 History Active Medications: Generic Name Dose Route Start Last Admin Trade Name Freq PRN Reason Stop Dose Admin Amiodarone HCl 200 mg 05/07/18 13:00 05/09/18 09:54 Cordarone PO 200 mg BID CATHI Administration Apixaban 5 mg 05/06/18 22:00 05/09/18 09:54 Eliquis PO 5 mg Q12HR CATHI Administration Protocol Sodium Bicarbonate 150 meq/ 1,150 mls @ 100 mls/hr 05/08/18 13:00 05/09/18 03:44 Dextrose IV 100 mls/hr DIRECT CATHI Administration Metoprolol Tartrate 25 mg 05/07/18 22:00 05/09/18 09:54 Lopressor PO 25 mg BID CATHI Administration Morphine Sulfate 2 mg 04/28/18 12:21 05/08/18 01:08 Morphine IV 2 mg Q3H PRN Administration Pain, Moderate (4-6) Ondansetron HCl 4 mg 05/08/18 10:55 Zofran IV Q6H PRN Nausea Pantoprazole Sodium 40 mg 05/03/18 10:00 05/09/18 09:54 Protonix PO 40 mg DAILY CATHI Administration Phenol 1 spray 05/03/18 14:20 Chloraseptic MM PRN PRN Sore Throat
--- NOTE | 2018-05-09 12:11 | Progress Note ---
Assessment and Plan 67 yo F with 1. 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 metastatic papillary endometrial endometrial cancer 3. ascites s/p paracentesis 4. TIARRA secondary to volume depletion Ct Scan A/P compared to Ct scan A/P from Mar 2018. Bowel loop appearance is similar. Ascites has reaccumulated. Radiology report notes concerns for omental caking and peritoneal studding. Obstruction series 05/03: pSBO Abd xray 05/07 - likely pSBO Plan: 1. c/w NPO 2. IVF 3. maintain NGT to LIWS. 4. will obtain obstruction series to evaluate positioning of NGT and reevaluate bowel pattern 5. oncology and nephro on board 6. prn pain and nausea control 7. DVT ppx 8. BMP daily - replace lytes as needed Plan to transfer to [place] per patient request Subjective Date of service: 05/09/18 Narrative: Pt seen and examined. No complaints. No f/c, n/v, cp, sob, abd pain. States her abdomen is feeling better. No flatus or BM but feels like she has to use the bathroom. Objective Vital Signs - 12hr 05/09/18 05/09/18 05/09/18 03:00 04:22 08:50 Temperature 97.3 F L 98.0 F Pulse Rate 106 H 110 H 115 H Respiratory 20 18 Rate Blood Pressure 127/72 126/80 O2 Sat by Pulse 100 98 Oximetry - General physical appearance Narrative Exam: Gen: AAOx3. NAD. Overall ill appearing ENT; NGT displaced with 4 black dots visible, off suction. NGT pushed in by approximately 15cm and taped in place CV: S1, S2+ resp: even and unlabored Abd: soft, distended, NT. Incisional hernia reducible Ext: no c/c/e NGT output - none recorded - Labs 05/03/18 04:52 05/09/18 05:36 Diabetes panel 05/09/18 Range/Units 05:36 Sodium 143 (137-145) mmol/L Potassium 4.5 (3.6-5.0) mmol/L Chloride 100.8 (98-107) mmol/L Carbon Dioxide 26 (22-30) mmol/L BUN 103 H (7-17) mg/dL Creatinine 3.8 H (0.7-1.2) mg/dL Glucose 147 H (65-100) mg/dL Calcium 8.3 L (8.4-10.2) mg/dL Calcium panel 05/09/18 Range/Units 05:36 Calcium 8.3 L (8.4-10.2) mg/dL Pituitary panel 05/09/18 Range/Units 05:36 Sodium 143 (137-145) mmol/L Potassium 4.5 (3.6-5.0) mmol/L Chloride 100.8 (98-107) mmol/L Carbon Dioxide 26 (22-30) mmol/L BUN 103 H (7-17) mg/dL Creatinine 3.8 H (0.7-1.2) mg/dL Glucose 147 H (65-100) mg/dL Calcium 8.3 L (8.4-10.2) mg/dL Adrenal panel 05/09/18 Range/Units 05:36 Sodium 143 (137-145) mmol/L Potassium 4.5 (3.6-5.0) mmol/L Chloride 100.8 (98-107) mmol/L Carbon Dioxide 26 (22-30) mmol/L BUN 103 H (7-17) mg/dL Creatinine 3.8 H (0.7-1.2) mg/dL Glucose 147 H (65-100) mg/dL Calcium 8.3 L (8.4-10.2) mg/dL
--- NOTE | 2018-05-09 15:36 | XRay Report ---
ABDOMINAL SERIES INDICATION: Partial small bowel obstruction. COMPARISON: 05/07/2018 abdomen radiograph and 05/03/2018 abdominal series. FINDINGS: Abdominal series, 3 radiographs, demonstrate overall slightly lesser bowel gas, though few mid to lower abdominal small bowel loops located centrally may measure 2.5-3 cm caliber. No colonic air noted. Minimal rectosigmoid air or stool may though be present. No focal suspicious calcifications. Few pelvic vascular calcifications seen. Stable esophagogastric tube tip about the gastric antrum. Abdominal haziness/possible ascites. Chest radiograph now demonstrates completely opacified left hemithorax, representing worsening pleural fluid/consolidation, obscuring the left heart. Grossly stable right heart border and the right lung. Mild right basilar atelectasis possible. Right chest port tip along the SVC again noted. EKG leads. Stable bones with lower thoracic and lower lumbar spine degenerative changes. Left more than right acetabular spurring also noted. CONCLUSION: 1. Interval worsening with now complete opacification of the left hemithorax, as described. 2. Ascites suspected with few centrally located small bowel loops again possibly top normal in caliber. 3. Few other findings, as above. Thank you for the opportunity to participate in this patient's care.
--- NOTE | 2018-05-09 18:21 | Progress Note ---
Assessment and Plan Assessment and plan: 67-year-old woman with past medical history of stage IV, recurrence papillary serous endometrial carcinoma. She is status post hysterectomy, has received multiple rounds of chemotherapy and radiation therapy. She has just established with Dr. Palacio should be seen for ongoing chemotherapy. She presented with nausea vomiting abdominal tightness and weakness. The patient has received paracentesis, 3.5 L of fluid have been removed. -Diagnosis Small bowel obstruction Multiple intra-abdominal adhesions and seeding of malignancy in the abdomen Acute on chronic kidney disease, she suffered toxicity from chemotherapy to her kidneys Stage IV endometrial carcinoma Malignant ascites Atrial fibrillation with RVR Hypercoagulable states Large right pleural effusion Acute on chronic systolic CHF EF 40% anarsarca Plan Continue IV fluids, continue NG to nasal suction, advance diet when okayed by general surgery Nephrology appreciated, avoid nephrotoxins, now agreeable for HD, for vasc cath in am and HD in am, BUN in 100s Oncology inputs appreciated Rate control medications ordered, cardiology input appreciated, optimizing rate control medications, she was restarted on eliquis, will hold given that she is planned for vasc cath The patient would like to get better and follow up with Dr. Palacio for chemotherapy, but is currently her goal -will consider repeat paracentesis and R thoracentesis if they do not improve with UF- HD DVT prophylaxis; chemical The patient and her family wanted her transferred to [place], they are speaking to the physicians at [place] and will report back to us tomorrow History Interval history: Review of systems Constitutional: No fevers, no malaise, no joint pains CVS: No chest pain, no orthopnea, no dyspnea on exertion, no pedal edema GI: She complains of intermittent abdominal pain nausea and vomiting Respiratory: c/o severe shortness of breath, no wheezing, no coughing Hospitalist Physical - Physical exam Narrative exam: General.: Appears well, no distress, nontoxic HEENT: Moist mucous membranes, extraocular muscles intact, no lymphadenopathy Neck: supple Cardiac: S1-S2 heard Lungs: Dullness of the right mid and lower lung Abdomen: soft , distended, dull to percussion Extremities:3 plus bipedal edema Skin: no rash or lesions Neurologic: no gross focal deficits Psych: calm, and cooperative - Constitutional Vitals: Temp Pulse Resp BP Pulse Ox 97.2 F L 109 H 20 120/76 98 05/09/18 17:27 05/09/18 17:27 05/09/18 17:27 05/09/18 17:27 05/09/18 17:27 General appearance: Present: no acute distress Results - Labs CBC & Chem 7: 05/03/18 04:52 05/09/18 05:36 Labs: Laboratory Last Values WBC 12.1 K/mm3 (4.5-11.0) H 05/03/18 04:52 RBC 3.28 M/mm3 (3.65-5.03) L 05/03/18 04:52 Hgb 9.0 gm/dl (10.1-14.3) L 05/03/18 04:52 Hct 27.3 % (30.3-42.9) L 05/03/18 04:52 MCV 83 fl (79-97) 05/03/18 04:52 MCH 27 pg (28-32) L 05/03/18 04:52 MCHC 33 % (30-34) 05/03/18 04:52 RDW 19.3 % (13.2-15.2) H 05/03/18 04:52 Plt Count 352 K/mm3 (140-440) 05/03/18 04:52 Lymph % (Auto) 3.7 % (13.4-35.0) L 05/03/18 04:52 [place] % (Auto) 8.3 % (0.0-7.3) H 05/03/18 04:52 Eos % (Auto) 0.1 % (0.0-4.3) 05/03/18 04:52 Baso % (Auto) 0.0 % (0.0-1.8) 05/03/18 04:52 Lymph # 0.4 K/mm3 (1.2-5.4) L 05/03/18 04:52 [place] # 1.0 K/mm3 (0.0-0.8) H 05/03/18 04:52 Eos # 0.0 K/mm3 (0.0-0.4) 05/03/18 04:52 Baso # 0.0 K/mm3 (0.0-0.1) 05/03/18 04:52 Seg Neutrophils % 87.9 % (40.0-70.0) H 05/03/18 04:52 Seg Neutrophils # 10.7 K/mm3 (1.8-7.7) H 05/03/18 04:52 PT 16.3 Sec. (12.2-14.9) H 04/28/18 04:16 INR 1.23 (0.87-1.13) H 04/28/18 04:16 Sodium 143 mmol/L (137-145) 05/09/18 05:36 Potassium 4.5 mmol/L (3.6-5.0) 05/09/18 05:36 Chloride 100.8 mmol/L (98-107) 05/09/18 05:36 Carbon Dioxide 26 mmol/L (22-30) 05/09/18 05:36 Anion Gap 21 mmol/L 05/09/18 05:36 BUN 103 mg/dL (7-17) H 05/09/18 05:36 Creatinine 3.8 mg/dL (0.7-1.2) H 05/09/18 05:36 Estimated GFR 14 ml/min 05/09/18 05:36 BUN/Creatinine Ratio 27 % 05/09/18 05:36 Glucose 147 mg/dL (65-100) H 05/09/18 05:36 POC Glucose 122 (70-105) H 05/06/18 08:12 Osmolality 324 Mosm/kg 04/28/18 14:47 Uric Acid 16.8 mg/dL (3.5-7.6) H 04/28/18 14:47 Calcium 8.3 mg/dL (8.4-10.2) L 05/09/18 05:36 Magnesium 2.50 mg/dL (1.7-2.3) H 05/06/18 14:37 Iron 21 ug/dL (37-170) L 05/03/18 04:52 TIBC 143 mcg/dL (250-450) L 05/03/18 04:52 Ferritin 244.3 ng/mL (13.0-400.0) 05/03/18 04:52 Total Bilirubin 0.30 mg/dL (0.1-1.2) 04/27/18 21:46 AST 22 units/L (5-40) 04/27/18 21:46 ALT 11 units/L (7-56) 04/27/18 21:46 Alkaline Phosphatase 92 units/L (35-129) 04/27/18 21:46 Total Creatine Kinase 38 units/L (30-135) 04/28/18 04:16 Total Protein 6.8 g/dL (6.3-8.2) 04/27/18 21:46 Albumin 3.0 g/dL (3.9-5) L 04/27/18 21:46 Albumin/Globulin Ratio 0.8 % 04/27/18 21:46 CA 125 Antigen 1208 U/mL (<35) H 04/30/18 04:33 Vitamin B12 1451 pg/mL (211-911) H 05/03/18 04:52 Folate 18.07 ng/mL (7.3-26.0) 05/03/18 04:52 Urine Color Yellow (Yellow) 04/28/18 Unknown Urine Turbidity Slightly-cloudy (Clear) 04/28/18 Unknown Urine pH 5.0 (5.0-7.0) 04/28/18 Unknown Ur Specific [place] 1.015 (1.003-1.030) 04/28/18 Unknown Urine Protein 30 mg/dl mg/dL (Negative) 04/28/18 Unknown Urine Glucose (UA) Neg mg/dL (Negative) 04/28/18 Unknown Urine Ketones Neg mg/dL (Negative) 04/28/18 Unknown Urine Blood Neg (Negative) 04/28/18 Unknown Urine Nitrite Neg (Negative) 04/28/18 Unknown Urine Bilirubin Neg (Negative) 04/28/18 Unknown Urine Urobilinogen < 2.0 mg/dL (<2.0) 04/28/18 Unknown Ur Leukocyte Esterase Tr (Negative) 04/28/18 Unknown Urine WBC (Auto) 7.0 /HPF (0.0-6.0) H 04/28/18 Unknown Urine RBC (Auto) 2.0 /HPF (0.0-6.0) 04/28/18 Unknown U Epithel Cells (Auto) 2.0 /HPF (0-13.0) 04/28/18 Unknown Urine Bacteria (Auto) 1+ /HPF (Negative) 04/28/18 Unknown Ur Transition Epith Cell 2 /HPF 04/28/18 Unknown Urine Creatinine 156.1 mg/dL (0.1-20.0) H 04/28/18 Unknown Urine Sodium 10 mmol/L 04/28/18 Unknown Urine Total Protein 55 mg/dL (5-11.8) H 04/28/18 Unknown Immunofix Electrophor see below 04/28/18 14:47 Active Medications - Current Medications Current Medications: Generic Name Dose Route Start Last Admin Trade Name Freq PRN Reason Stop Dose Admin Amiodarone HCl 200 mg 05/07/18 13:00 05/09/18 09:54 Cordarone PO 200 mg BID CATHI Administration Apixaban 5 mg 05/06/18 22:00 05/09/18 09:54 Eliquis PO 5 mg Q12HR CATHI Administration Protocol Sodium Bicarbonate 150 meq/ 1,150 mls @ 100 mls/hr 05/08/18 13:00 05/09/18 03:44 Dextrose IV 100 mls/hr DIRECT CATHI Administration Metoprolol Tartrate 25 mg 05/07/18 22:00 05/09/18 09:54 Lopressor PO 25 mg BID CATHI Administration Morphine Sulfate 2 mg 04/28/18 12:21 05/08/18 01:08 Morphine IV 2 mg Q3H PRN Administration Pain, Moderate (4-6) Ondansetron HCl 4 mg 05/08/18 10:55 Zofran IV Q6H PRN Nausea Pantoprazole Sodium 40 mg 05/03/18 10:00 05/09/18 09:54 Protonix PO 40 mg DAILY CATHI Administration Phenol 1 spray 05/03/18 14:20 Chloraseptic MM PRN PRN Sore Throat Nutrition/Malnutrition Assess - Dietary Evaluation Nutrition/Malnutrition Findings: Nutrition Notes Start: 05/04/18 15:00 Freq: Status: Active Protocol: Document 05/09/18 15:56 RM (Rec: 05/09/18 15:59 RM [id number]) Nutrition Notes Initial or Follow up Reassessment Current Diagnosis Acute Kidney Injury,Small Bowel Obstruction Other Pertinent Diagnosis Metastatic endometrial cancer, Ascites, N/V Current Diet NPO Labs/Tests Reviewed Pertinent Medications Reviewed Height 5 ft 5 in Weight 81.3 kg [place] Body Weight (kg) 56.81 BMI 29.8 Weight change and time frame Wt increase likely d/t fluid change Subjective/Other Information Per nurse pt is planned to transfer to [place]. Burn Absent Trauma Absent #1 Nutrition Diagnosis Malnutrition Diagnosis Progress(for reassessment Continues documentation) Is patient on ventilator? No Is Patient Ambulatory and/or Out of Bed Yes REE-([place]. Jeor-ambulatory/OOB) [ [id number] [id number]] Calculation Used for Recommendations [facility] Additional Notes Protein Needs: 67-101g (1-1.5g /kg) Fluid Needs: 1 ml/kcal Nutrition Intervention Change Diet Order: Advance when medically able or TPN consult Goal #1 Diet advancement or TPN consult Anticipated Discharge Needs: Unable to determine at this time Follow-Up By: 05/11/18 Additional Comments Follow for diet advancement, TPN consult
[2018-05-09] MEDS ORDERED: NACL 0.9% 100 ML IV PRN (20:00)
--- NOTE | 2018-05-09 20:24 | Operative Report ---
Operative Report Operative Report: Date of procedure: 05/09/2018 Pre-operative diagnosis: Metastatic endometrial cancer, acute renal failure, pul monary edema Post-operative diagnosis: Same Procedure name(s): Insertion of temporary hemodialysis catheter right common femoral vein Surgeon: Andrzej Byrne MD Anesthesia: Local EBL: None Specimen(s): None Complications: None Findings: Patient fully anticoagulated on Eliquis was for right internal jugular venous thrombosis, long-standing [id number] right IJV no safe upper extremity access and therefore right femoral approach chosen. After easily passed without resistance or discomfort. Ready for use. Procedure: [ Patient in the supine position the right groin and lower abdomen were prepped and draped using standard sterile technique. A duplex scan was brought into the surgical field in a sterile fashion and the right common femoral vein was id entified. It was patent. The skin overlying that vessel was anesthetized and a standard cannulation needle was inserted under real-time imaging and observed to penetrate the anterior wall of the right common femoral vein. Intraluminal position was confirmed with aspiration. A guidewire was advanced into the inferior vena cava. The cannulation needle was removed. The tract was then dilated and a standard 20 cm trialysis catheter was inserted using Seldinger technique and advanced into the inferior vena cava. Guidewire was removed and all limbs were aspirated flushed and primed with sterile saline. The catheter was anchored to the skin using suture. Bio- disc was placed. Sterile dressing was applied. Patient was returned to the semifowlers position in stable condition.
[2018-05-09] MEDS: MORPHINE IV PRN (21:48)
--- NOTE | 2018-05-09 22:51 | Event Note ---
[facility] intubation note Requested by hospitalist (Dr. Barger) to intubate patient presenting with agonal respirations. The patient was intubated via orotracheal route using a 7.0 mm endotracheal tube. Rapid sequence induction was not used. Positioning was confirmed using auscultation and CO2 detector. Physical exam: Cardiovascular: Regular rate and rhythm Pulmonary: Agonal respirations. Breath sounds equal bilaterally after intubation Neuro: GCS 3T Patient left in the care of the hospitalist Dr. Barger at the bedside
--- NOTE | 2018-05-09 23:34 | Event Note ---
Date: 05/09/18 Code blue Patient developed agonal respiration during dialysis Her blood pressure has been steadily declining Patient intubated, will transfer to the ICU Repeat labs, start Levophed drip Consult critical care CODE BLUE Initial rhythm PEA, ACLS protocol initiated Please refer to the chart for details There was ROSC, patient noted to be hypothermic Start Kim Sanfordn, obtain blood cultures CODE BLUE Patient On 3 pressors, initial rhythm PEA, ACLS protocol initiated Time of 05 Family at bedside
[2018-05-09 23:41] VITALS: BP 89/41
--- NOTE | 2018-05-09 23:43 | XRay Report ---
PROCEDURE: XR CHEST 1V AP TECHNIQUE: Chest radiograph single view. HISTORY: intubated COMPARISONS: None . FINDINGS: Heart: Cardiac shadow is obscured.. Mediastinum/Vessels: Normal. Lungs/Pleural space: There is complete opacification of the left hemithorax which is new since the p rior study. This could be due to a large effusion. Right lung is clear.. Bony thorax: No acute osseous abnormality. Life support devices: There is an endotracheal tube in the distal trachea. The NG tube is in the stom ach. There is a right-sided Port-A-Cath. The tip is in the superior vena cava.. IMPRESSION: Cardiac shadow is obscured.. There is complete opacification of the left hemithorax which is new since the prior study. This could be due to a large effusion. Right lung is clear.. There is an endotracheal tube in the distal trachea. The NG tube is in the stomach. There is a right- sided Port-A-Cath. The tip is in the superior vena cava. This document is electronically signed by Cr Mejia MD., May 09 2018 11:41:07 PM ET
[2018-05-10 00:05] LABS: Basophils % (Auto) 0.2 % (0.0-1.8); Hematocrit 23.5 % (30.3-42.9); Hemoglobin 7.3 gm/dl (10.1-14.3); Lymphocytes # (Auto) 0.5 K/mm3 (1.2-5.4); Lymphocytes % (Auto) 3.7 % (13.4-35.0); Mean Corpuscular HGB Conc 31 % (30-34); Mean Corpuscular Volume 86 fl (79-97); Monocytes % (Auto) 8.2 % (0.0-7.3); Platelet Count 313 K/mm3 (140-440); Red Blood Count 2.73 M/mm3 (3.65-5.03); Red Cell Distribution Width 19.9 % (13.2-15.2)
[2018-05-10 00:08] LABS: Calcium 8.2 mg/dL (8.4-10.2)
[2018-05-10] MEDS ORDERED: LEVOPHED DRIP 4 MG/NS 250 ML 4 MG/250 ML BAG IV SCH (01:00)
[2018-05-10 01:13] LABS: Chol/HDL Ratio 3.06 %
[2018-05-10] MEDS ORDERED: VERSED IV PRN (01:19)
[2018-05-10] MEDS ORDERED: VASELINE LIP THERAPY TP PRN (01:19)
[2018-05-10] MEDS ORDERED: MIDAZOLAM 100 MG in NACL 0.9% 80 ML IV SCH (02:00)
[2018-05-10] MEDS ORDERED: NACL 0.9% 1000 ML 1,000 ML ONE (03:22)
[2018-05-10] MEDS ORDERED: NEO-SYNEPHRINE 100 MG in NACL 0.9% 90 ML IV SCH (03:45)
[2018-05-10] MEDS ORDERED: ZOSYN/NS 3.375GM/50ML 3.375 GM/50 ML BAG IV SCH (04:04)
[2018-05-10] MEDS ORDERED: VANCOMYCIN/NS 1 GM/250 ML 1 GM/250 ML BAG IV ONE (04:05)
[2018-05-10] MEDS ORDERED: ADRENALIN ONE (05:13)
[2018-05-10] MEDS ORDERED: ATROPINE 0.1% (CARDIAC) ONE (05:13)
[2018-05-10] MEDS ORDERED: INTROPIN DRIP 800 MG/D5W 250 ML 800 MG/250 ML BAG IV ONE (05:19)
--- NOTE | 2018-05-10 07:12 | Hem/Onc Progress Note ---
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 Current Visit: Yes Status: Acute Subjective Date of service: 05/10/18 Objective - Constitutional Vitals: Last Vital Signs Temp 95.5 F L 05/10/18 03:43 Pulse 88 05/10/18 03:34 Resp 33 H 05/10/18 00:00 BP 89/41 05/09/18 22:15 Pulse Ox 100 05/10/18 00:00 - Labs Lab Results: Laboratory Results - last 24 hr 05/09/18 05/09/18 05/09/18 23:05 23:05 23:05 WBC 12.7 H RBC 2.73 L Hgb 7.3 L Hct 23.5 L MCV 86 MCH 27 L MCHC 31 RDW 19.9 H Plt Count 313 Lymph % (Auto) 3.7 L [place] % (Auto) 8.2 H Eos % (Auto) 0.0 Baso % (Auto) 0.2 Lymph # 0.5 L [place] # 1.0 H Eos # 0.0 Baso # 0.0 Seg Neutrophils % 87.9 H Seg Neutrophils # 11.1 H POC ABG pH POC ABG pO2 POC ABG HCO3 POC ABG Total CO2 POC ABG O2 Sat POC ABG Base Excess FiO2 Sodium 143 Potassium 5.2 H Chloride 97.7 L Carbon Dioxide 19 L D Anion Gap 32 BUN 83 H Creatinine 3.3 H Estimated GFR 17 BUN/Creatinine Ratio 25 Glucose 88 Calcium 8.2 L Total Creatine Kinase 57 CK-MB (CK-2) 5.0 H CK-MB (CK-2) Rel Index 8.7 H Troponin T 0.081 H Triglycerides 162 H Cholesterol 141 LDL Cholesterol Direct 66 HDL Cholesterol 46 Cholesterol/HDL Ratio 3.06 05/10/18 00:38 WBC RBC Hgb Hct MCV MCH MCHC RDW Plt Count Lymph % (Auto) [place] % (Auto) Eos % (Auto) Baso % (Auto) Lymph # [place] # Eos # Baso # Seg Neutrophils % Seg Neutrophils # POC ABG pH 7.371 POC ABG pO2 356 H POC ABG HCO3 16.4 POC ABG Total CO2 17 POC ABG O2 Sat 100 POC ABG Base Excess -9 FiO2 100 Sodium Potassium Chloride Carbon Dioxide Anion Gap BUN Creatinine Estimated GFR BUN/Creatinine Ratio Glucose Calcium Total Creatine Kinase CK-MB (CK-2) CK-MB (CK-2) Rel Index Troponin T Triglycerides Cholesterol LDL Cholesterol Direct HDL Cholesterol Cholesterol/HDL Ratio Medications & Allergies - Medications Allergies/Adverse Reactions: Allergies lisinopril Allergy (Verified 04/28/18 12:20) Swelling Home Medications: Home Medications Medication Instructions Recorded Confirmed Last Taken Type Cod Liver Oil 1 each PO DAILY 06/07/17 04/28/18 04/20/18 History Ergocalciferol(Vitamin D2)(Nf) 400 unit PO DAILY 06/07/17 04/28/18 04/26/18 10:00 History [Vitamin D (Nf)] One Daily Multivitamin Tablet 1 tab PO DAILY 06/07/17 04/28/18 04/26/18 21:00 History amLODIPine [Norvasc] 10 mg PO DAILY 06/07/17 04/28/18 04/26/18 21:00 History hydroCHLOROthiazide [HCTZ] 12.5 mg PO DAILY 06/07/17 04/28/18 04/26/18 10:00 History Apixaban [Eliquis] 5 mg PO DAILY 04/16/18 04/28/18 04/23/18 21:00 History Active Medications: Generic Name Dose Route Start Last Admin Trade Name Freq PRN Reason Stop Dose Admin Amiodarone HCl 200 mg 05/07/18 13:00 05/09/18 09:54 Cordarone PO 200 mg BID CATHI Administration Hydrophilic Ointment 1 applic 05/10/18 01:19 Vaseline Lip Therapy TP Q2HR PRN Dry Lips Sodium Chloride 100 mls @ 999 mls/hr 05/09/18 20:00 Nacl 0.9% IV JERRY PRN Hypotension Norepinephrine 4 mg in 250 mls @ 7.5 mls/hr 05/10/18 01:00 05/10/18 03:18 Levophed Drip 4 Mg/Ns 250 Ml IV 2 mcg/min TITR CATHI 7.5 mls/hr Administration Protocol 2 MCG/MIN Midazolam HCl 100 mg/ Sodium 100 mls @ 2 mls/hr 05/10/18 02:00 Chloride IV TITR CATHI Protocol 2 MG/HR Phenylephrine HCl 100 mg/ 100 mls @ 3 mls/hr 05/10/18 03:45 05/10/18 04:35 Sodium Chloride IV 50 mcg/min TITR CATHI 3 mls/hr Administration Protocol 50 MCG/MIN Piperacillin Sod/Tazobactam Sod 3.375 gm in 50 mls @ 100 mls/hr 05/10/18 04:04 05/10/18 04:36 Zosyn/Ns 3.375gm/50ml IV 100 mls/hr Q8HR CATHI Administration Metoprolol Tartrate 25 mg 05/07/18 22:00 05/09/18 09:54 Lopressor PO 25 mg BID CATHI Administration Midazolam HCl 2 mg 05/10/18 01:19 Versed IV Q10MIN PRN Sedation Morphine Sulfate 2 mg 04/28/18 12:21 05/09/18 21:48 Morphine IV 2 mg Q3H PRN Administration Pain, Moderate (4-6) Ondansetron HCl 4 mg 05/08/18 10:55 Zofran IV Q6H PRN Nausea Pantoprazole Sodium 40 mg 05/03/18 10:00 05/09/18 09:54 Protonix PO 40 mg DAILY CATHI Administration Phenol 1 spray 05/03/18 14:20 Chloraseptic MM PRN PRN Sore Throat
--- NOTE | 2018-05-10 10:05 | Progress Note ---
Hospitalist Physical - Constitutional Vitals: Temp Pulse Resp BP Pulse Ox 95.5 F L 88 33 H 89/41 100 05/10/18 03:43 05/10/18 03:34 05/10/18 00:00 05/09/18 22:15 05/10/18 00:00 General appearance: Present: no acute distress Results - Labs CBC & Chem 7: 05/09/18 23:05 05/09/18 23:05 Labs: Laboratory Last Values WBC 12.7 K/mm3 (4.5-11.0) H 05/09/18 23:05 RBC 2.73 M/mm3 (3.65-5.03) L 05/09/18 23:05 Hgb 7.3 gm/dl (10.1-14.3) L 05/09/18 23:05 Hct 23.5 % (30.3-42.9) L 05/09/18 23:05 MCV 86 fl (79-97) 05/09/18 23:05 MCH 27 pg (28-32) L 05/09/18 23:05 MCHC 31 % (30-34) 05/09/18 23:05 RDW 19.9 % (13.2-15.2) H 05/09/18 23:05 Plt Count 313 K/mm3 (140-440) 05/09/18 23:05 Lymph % (Auto) 3.7 % (13.4-35.0) L 05/09/18 23:05 [place] % (Auto) 8.2 % (0.0-7.3) H 05/09/18 23:05 Eos % (Auto) 0.0 % (0.0-4.3) 05/09/18 23:05 Baso % (Auto) 0.2 % (0.0-1.8) 05/09/18 23:05 Lymph # 0.5 K/mm3 (1.2-5.4) L 05/09/18 23:05 [place] # 1.0 K/mm3 (0.0-0.8) H 05/09/18 23:05 Eos # 0.0 K/mm3 (0.0-0.4) 05/09/18 23:05 Baso # 0.0 K/mm3 (0.0-0.1) 05/09/18 23:05 Seg Neutrophils % 87.9 % (40.0-70.0) H 05/09/18 23:05 Seg Neutrophils # 11.1 K/mm3 (1.8-7.7) H 05/09/18 23:05 PT 16.3 Sec. (12.2-14.9) H 04/28/18 04:16 INR 1.23 (0.87-1.13) H 04/28/18 04:16 POC ABG pH 7.371 (7.35-7.45) 05/10/18 00:38 POC ABG pO2 356 (80-105) H 05/10/18 00:38 POC ABG HCO3 16.4 (22-26 mml/L) 05/10/18 00:38 POC ABG Total CO2 17 (23-27mmol/L) 05/10/18 00:38 POC ABG O2 Sat 100 05/10/18 00:38 POC ABG Base Excess -9 ((-2) - (+3)mmol/L) 05/10/18 00:38 FiO2 100 % 05/10/18 00:38 Sodium 143 mmol/L (137-145) 05/09/18 23:05 Potassium 5.2 mmol/L (3.6-5.0) H 05/09/18 23:05 Chloride 97.7 mmol/L (98-107) L 05/09/18 23:05 Carbon Dioxide 19 mmol/L (22-30) L D 05/09/18 23:05 Anion Gap 32 mmol/L 05/09/18 23:05 BUN 83 mg/dL (7-17) H 05/09/18 23:05 Creatinine 3.3 mg/dL (0.7-1.2) H 05/09/18 23:05 Estimated GFR 17 ml/min 05/09/18 23:05 BUN/Creatinine Ratio 25 % 05/09/18 23:05 Glucose 88 mg/dL (65-100) 05/09/18 23:05 POC Glucose 122 (70-105) H 05/06/18 08:12 Osmolality 324 Mosm/kg 04/28/18 14:47 Uric Acid 16.8 mg/dL (3.5-7.6) H 04/28/18 14:47 Calcium 8.2 mg/dL (8.4-10.2) L 05/09/18 23:05 Magnesium 2.50 mg/dL (1.7-2.3) H 05/06/18 14:37 Iron 21 ug/dL (37-170) L 05/03/18 04:52 TIBC 143 mcg/dL (250-450) L 05/03/18 04:52 Ferritin 244.3 ng/mL (13.0-400.0) 05/03/18 04:52 Total Bilirubin 0.30 mg/dL (0.1-1.2) 04/27/18 21:46 AST 22 units/L (5-40) 04/27/18 21:46 ALT 11 units/L (7-56) 04/27/18 21:46 Alkaline Phosphatase 92 units/L (35-129) 04/27/18 21:46 Total Creatine Kinase 57 units/L (30-135) 05/09/18 23:05 CK-MB (CK-2) 5.0 ng/mL (0.0-4.0) H 05/09/18 23:05 CK-MB (CK-2) Rel Index 8.7 (0-4) H 05/09/18 23:05 Troponin T 0.081 ng/mL (0.00-0.029) H 05/09/18 23:05 Total Protein 6.8 g/dL (6.3-8.2) 04/27/18 21:46 Albumin 3.0 g/dL (3.9-5) L 04/27/18 21:46 Albumin/Globulin Ratio 0.8 % 04/27/18 21:46 Triglycerides 162 mg/dL (2-149) H 05/09/18 23:05 Cholesterol 141 mg/dL (50-199) 05/09/18 23:05 LDL Cholesterol Direct 66 mg/dL (50-130) 05/09/18 23:05 HDL Cholesterol 46 mg/dL (40-59) 05/09/18 23:05 Cholesterol/HDL Ratio 3.06 % 05/09/18 23:05 CA 125 Antigen 1208 U/mL (<35) H 04/30/18 04:33 Vitamin B12 1451 pg/mL (211-911) H 05/03/18 04:52 Folate 18.07 ng/mL (7.3-26.0) 05/03/18 04:52 Urine Color Yellow (Yellow) 04/28/18 Unknown Urine Turbidity Slightly-cloudy (Clear) 04/28/18 Unknown Urine pH 5.0 (5.0-7.0) 04/28/18 Unknown Ur Specific [place] 1.015 (1.003-1.030) 04/28/18 Unknown Urine Protein 30 mg/dl mg/dL (Negative) 04/28/18 Unknown Urine Glucose (UA) Neg mg/dL (Negative) 04/28/18 Unknown Urine Ketones Neg mg/dL (Negative) 04/28/18 Unknown Urine Blood Neg (Negative) 04/28/18 Unknown Urine Nitrite Neg (Negative) 04/28/18 Unknown Urine Bilirubin Neg (Negative) 04/28/18 Unknown Urine Urobilinogen < 2.0 mg/dL (<2.0) 04/28/18 Unknown Ur Leukocyte Esterase Tr (Negative) 04/28/18 Unknown Urine WBC (Auto) 7.0 /HPF (0.0-6.0) H 04/28/18 Unknown Urine RBC (Auto) 2.0 /HPF (0.0-6.0) 04/28/18 Unknown U Epithel Cells (Auto) 2.0 /HPF (0-13.0) 04/28/18 Unknown Urine Bacteria (Auto) 1+ /HPF (Negative) 04/28/18 Unknown Ur Transition Epith Cell 2 /HPF 04/28/18 Unknown Urine Creatinine 156.1 mg/dL (0.1-20.0) H 04/28/18 Unknown Urine Sodium 10 mmol/L 04/28/18 Unknown Urine Total Protein 55 mg/dL (5-11.8) H 04/28/18 Unknown Immunofix Electrophor see below 04/28/18 14:47 Active Medications - Current Medications Current Medications: Generic Name Dose Route Start Last Admin Trade Name Freq PRN Reason Stop Dose Admin Amiodarone HCl 200 mg 05/07/18 13:00 05/09/18 09:54 Cordarone PO 200 mg BID CATHI Administration Hydrophilic Ointment 1 applic 05/10/18 01:19 Vaseline Lip Therapy TP Q2HR PRN Dry Lips Sodium Chloride 100 mls @ 999 mls/hr 05/09/18 20:00 Nacl 0.9% IV JERRY PRN Hypotension Norepinephrine 4 mg in 250 mls @ 7.5 mls/hr 05/10/18 01:00 05/10/18 03:18 Levophed Drip 4 Mg/Ns 250 Ml IV 2 mcg/min TITR CATHI 7.5 mls/hr Administration Protocol 2 MCG/MIN Midazolam HCl 100 mg/ Sodium 100 mls @ 2 mls/hr 05/10/18 02:00 Chloride IV TITR CATHI Protocol 2 MG/HR Phenylephrine HCl 100 mg/ 100 mls @ 3 mls/hr 05/10/18 03:45 05/10/18 04:35 Sodium Chloride IV 50 mcg/min TITR CATHI 3 mls/hr Administration Protocol 50 MCG/MIN Piperacillin Sod/Tazobactam Sod 3.375 gm in 50 mls @ 100 mls/hr 05/10/18 04:04 05/10/18 04:36 Zosyn/Ns 3.375gm/50ml IV 100 mls/hr Q8HR CATHI Administration Metoprolol Tartrate 25 mg 05/07/18 22:00 05/09/18 09:54 Lopressor PO 25 mg BID CATHI Administration Midazolam HCl 2 mg 05/10/18 01:19 Versed IV Q10MIN PRN Sedation Morphine Sulfate 2 mg 04/28/18 12:21 05/09/18 21:48 Morphine IV 2 mg Q3H PRN Administration Pain, Moderate (4-6) Ondansetron HCl 4 mg 05/08/18 10:55 Zofran IV Q6H PRN Nausea Pantoprazole Sodium 40 mg 05/03/18 10:00 05/09/18 09:54 Protonix PO 40 mg DAILY CATHI Administration Phenol 1 spray 05/03/18 14:20 Chloraseptic MM PRN PRN Sore Throat Nutrition/Malnutrition Assess - Dietary Evaluation Nutrition/Malnutrition Findings: Nutrition Notes Start: 05/04/18 15:00 Freq: Status: Active Protocol: Document 05/09/18 15:56 RM (Rec: 05/09/18 15:59 RM [id number]) Nutrition Notes Initial or Follow up Reassessment Current Diagnosis Acute Kidney Injury,Small Bowel Obstruction Other Pertinent Diagnosis Metastatic endometrial cancer, Ascites, N/V Current Diet NPO Labs/Tests Reviewed Pertinent Medications Reviewed Height 5 ft 5 in Weight 81.3 kg [place] Body Weight (kg) 56.81 BMI 29.8 Weight change and time frame Wt increase likely d/t fluid change Subjective/Other Information Per nurse pt is planned to transfer to [place]. Burn Absent Trauma Absent #1 Nutrition Diagnosis Malnutrition Diagnosis Progress(for reassessment Continues documentation) Is patient on ventilator? No Is Patient Ambulatory and/or Out of Bed Yes REE-([place]-. [place]-ambulatory/OOB) [ [id number] [id number]] Calculation Used for Recommendations [facility] Additional Notes Protein Needs: 67-101g (1-1.5g /kg) Fluid Needs: 1 ml/kcal Nutrition Intervention Change Diet Order: Advance when medically able or TPN consult Goal #1 Diet advancement or TPN consult Anticipated Discharge Needs: Unable to determine at this time Follow-Up By: 05/11/18 Additional Comments Follow for diet advancement, TPN consult
--- NOTE | 2018-05-10 10:06 | Death Summary ---
Summary - Providers Consults: 04/28/18 07:53 Consult to Physician [CONS] Stat Comment: DR LEARY NOTIFIED 0745 Consulting Provider: NICK LEARY Physician Instructions: Reason For Exam: abdominal pain, partial small bowel obstruction 04/28/18 08:19 Consult to Physician [CONS] Stat Comment: DR GREENBERG NOTIFIED 0800 Consulting Provider: DEBRA GREENBERG Physician Instructions: Reason For Exam: acute renal failure 04/28/18 12:18 Consult to Physician [CONS] Routine Comment: Consulting Provider: CHARLEEN GILLIAM Physician Instructions: Reason For Exam: stage 4 ovarian cancer 04/29/18 09:31 Physical Therapy Evaluation and Treat [CONS] Routine Comment: Reason For Exam: weakness 05/08/18 03:45 Consult to Wound/ET Nurse [CONS] Urgent Reason For Exam: wound eval, new pressure ulcers at sacral 05/09/18 23:37 Consult to Physician [CONS] Routine Comment: Consulting Provider: BREANNE MAYER Physician Instructions: Reason For Exam: cc 05/10/18 01:20 Consult to Dietitian/Nutrition [CONS] Routine Physician Instructions: Reason For Exam: Reason for Consult: Evaluate nutritional intake Attending: SHI WILLETT MD - summary Date of admission: 04/28/18 07:59 Date of : 05/10/18 Significant findings: 67-year-old woman with past medical history of stage IV, recurrence papillary serous endometrial carcinoma. She is status post hysterectomy, has received multiple rounds of chemotherapy and radiation therapy. She has just established with Dr. Palacio should be seen for ongoing chemotherapy. She presented with nausea vomiting abdominal tightness and weakness. The patient has received paracentesis, 3.5 L of fluid have been removed. -Diagnosis Small bowel obstruction Multiple intra-abdominal adhesions and seeding of malignancy in the abdomen Acute on chronic kidney disease, she suffered toxicity from chemotherapy to her kidneys Stage IV endometrial carcinoma Malignant ascites Atrial fibrillation with RVR Hypercoagulable states Large right pleural effusion Acute on chronic systolic CHF EF 40% anarsarca Hospital course -, an NG tube to suction to decompress her bowel And bowel obstruction. Bowel obstruction is most likely due to metastases to the bowel. She was tried on oral diet multiple times when she improves, but always re-obstructed. -She received paracentesis, 3-1/2 L of fluid was removed -She was seen by cardiology for atrial fibrillation and heart failure. She was medically treated for those conditions, and dialysis was recommended as she was not able to diuresis -Her renal function continued to get worse, have BUN was rising, she was becoming more edematous. But the patient continued to refuse dialysis as she was planning to transfer to another hospital, herself and her family members when the process of getting an accepting physician. We personally spoke to her oncologist and her gynecology oncologist, and he were not able to accept her into their facilities. She had just setup with the oncologist and have not been to her first appointment yet. And she had been discharged from the gynecology oncologist service after her surgery, but the patient unfortunately had recurrence of her cancer. -The patient then agreed to start dialysis in the hospital while waiting to organize her and transfer to another facility. She was started on dialysis, but she continued to get worse -During dialysis, she went into respiratory distress was hypotensive, she was started on pressors and then became pulseless, she received CPR. She regained her pulse only to lose her pulse another 2 times and received CPR another 2 times. She received CPR total of 3 times, but unfortunately patient . -Patient was co-managed by general surgery, oncology, nephrology, cardiology and hospital service during the course of her admission
== END 2018-05-10 12:44 | DRG 754 ==
LOC: ED 20:23 → 4A 04-28 07:59 → 2B-ACE 04-28 13:12 → 4A 05-05 14:52 → CC1 05-09 22:46
PROVIDERS: ADMIT Internal Medicine; ATTEND Internal Medicine
PROC: 0W9G3ZZ Drainage of Peritoneal Cavity, Percutaneous Approach (ICD-10-PCS; 2018-05-01)
PROC: 5A1935Z Respiratory Ventilation, Less than 24 Consecutive Hours (ICD-10-PCS; principal; 2018-05-09)
PROC: 0BH17EZ Insertion of Endotracheal Airway into Trachea, Via Natural or Artificial Opening (ICD-10-PCS; 2018-05-09)
PROC: 02HV33Z Insertion of Infusion Device into Superior Vena Cava, Percutaneous Approach (ICD-10-PCS; 2018-05-09)
PROC: 5A1D70Z Performance of Urinary Filtration, Intermittent, Less than 6 Hours Per Day (ICD-10-PCS; 2018-05-09)
PROC: 4A033R1 Measurement of Arterial Saturation, Peripheral, Percutaneous Approach (ICD-10-PCS; 2018-05-10)
DX: C54.1 Malignant neoplasm of endometrium (principal); N17.0 Acute kidney failure with tubular necrosis; R65.11 Systemic inflammatory response syndrome (SIRS) of non-infectious origin with acute organ dysfunction; I50.23 Acute on chronic systolic (congestive) heart failure; K56.51 Intestinal adhesions [bands], with partial obstruction; C79.60 Secondary malignant neoplasm of unspecified ovary; E46 Unspecified protein-calorie malnutrition; N39.0 Urinary tract infection, site not specified; R18.0 Malignant ascites; D68.59 Other primary thrombophilia; E87.1 Hypo-osmolality and hyponatremia; E87.2 Acidosis; N18.9 Chronic kidney disease, unspecified; I48.91 Unspecified atrial fibrillation; E83.41 Hypermagnesemia; D64.9 Anemia, unspecified; Z90.710 Acquired absence of both cervix and uterus; Z79.899 Other long term (current) drug therapy; Z68.29 Body mass index [BMI] 29.0-29.9, adult; Z82.49 Family history of ischemic heart disease and other diseases of the circulatory system; Z90.722 Acquired absence of ovaries, bilateral
CPT/HCPCS: 36415; 36600; 49083; 71045; 74018; 74022; 74176; 76770; 80048; 80053; 80061; 81001; 82550; 82553; 82570; 82607; 82728; 82747; 82803; 82962; 83550; 83735; 83930; 84156; 84300; 84484; 84550; 85025; 85027; 85610; 86304; 86334; 87116; 87205; 92950; 93005; 93010; 93306; 94002; 96374; 96375; G0378; C1729; C9113; J0171; J0282; J0461; J1265; J2250; J2270; J2370; J2405; J2543; J2765; J3010; J3370; J7030; J7040; J7042; J7060; J7070; J7120